=== PATIENT | male | born 1970 | race African-American/Black ===

== ENCOUNTER 2020-03-29 09:26 | Inpatient (IN) ==
[2020-03-29] MEDS ORDERED: ACETAMINOPHEN 1000 MG/100 ML IV IV STA (10:37)
[2020-03-29] MEDS ORDERED: DEXAMETHASONE SOD INJ 4 MG/ML VIAL IV STA (10:37)
[2020-03-29] MEDS ORDERED: SODIUM CHLORIDE 0.9% 1000ML 1,000 ML IV SCH (10:45)
--- NOTE | 2020-03-29 10:48 | Emergency Department Note ---
History of Present Illness General Chief Complaint: Shortness of Breath/Dyspnea Time Seen by Provider: 03/29/20 10:16 Source: patient Mode of arrival: ambulatory Limitations: no limitations History of Present Illness Provider Complaint: shortness of breath, cough and chest pain Onset (ago): day(s) (6) Severity: severe Consistency/Duration: + progressively worsening Maximum Pain Intensity: 5 Current Pain Intensity: 5 Relieved By: + rest and + upright position Exacerbated By: + lying flat, + exertion, + movement, + coughing and + talking Known history of: other (HTN) Treatment prior to arrival: oxygen HPI Narrative: This 49-year-old male patient presents to the emergency departm ent today [facility]. The patient states he has had diarrhea, high blood pressure, and fever for at least 5 days. He has been trying to manage his symptoms at present alone, but states everybody on the block is sick and no one is quarantined. He developed worsening cough, short ness of breath, fever, occasionally coughing up sputum last night, and was seen at the [facility] today. At the [facility], his O2 saturation was noted to be 75% on room air. He was then referred here via ambulance for further evaluation. The patient does report some chest pain associated with the dyspnea. He denies any abdominal pain, nausea, vomiting. No headache, dizziness, numbness, or ting ling. There are known COVID-19 exposures. Related Data Home oxygen amount: none Home Medications Medication Instructions Recorded Confirmed Type terbinafine HCl 1 % topical cream 1 appln TOP BID 01/08/19 03/29/20 History Allergies Allergy/AdvReac Type Severity Reaction Status Date / Time Penicillins Allergy Verified 03/29/20 10:31 strawberry Allergy Verified 03/29/20 10:31 Past Med/Surg History Medical History Hypertension Knee pain Umbilical hernia Social History Smoking Status: Never smoker Feels Safe at Home: Yes Review of Systems A total of 10 systems reviewed and were otherwise negative Physical Exam Vital Signs: Vital Signs - 24 hr 03/29/20 09:38 03/29/20 09:45 03/29/20 10:00 Temperature Temperature Source Pulse Rate 116 H 116 H 110 H Pulse Rate [Apical ] Pulse Rate from Sp O2 Sensor 115 H 116 H 115 H Respiratory Rate 56 H 37 H 56 H Respiratory Effort / Characteristics Respiratory Depth Respiratory Patter n Blood Pressure 139/88 Blood Pressure [Le ft Arm] Blood Pressure Alyson n 101 Blood Pressure Alyson n [Left Arm] Pulse Oximetry 92 93 92 Oxygen Delivery Me thod Oxygen Flow Rate Sepsis Recent Feve r Within 48 Hours Sepsis New/Unexpla ined Change in Men russ Status Sepsis Action Take n by Nursing 03/29/20 10:06 03/29/20 10:15 03/29/20 10:30 Temperature 38.6 C H Temperature Source Oral Pulse Rate 111 H 116 H 113 H Pulse Rate [Apical ] Pulse Rate from Sp O2 Sensor 111 H 114 H Respiratory Rate 54 H 40 H Respiratory Effort / Characteristics Labored Retracting Short of Breath Respiratory Depth Retractive Respiratory Patter n Tachypnea Blood Pressure 151/94 H 139/82 139/82 Blood Pressure [Le ft Arm] Blood Pressure Alyson n 100 101 92 Blood Pressure Alyson n [Left Arm] Pulse Oximetry 92 93 92 Oxygen Delivery Me thod Nasal Cannula Oxygen Flow Rate 6 Sepsis Recent Feve r Within 48 Hours Yes Sepsis New/Unexpla ined Change in Men russ Status N/A Sepsis Action Take n by Nursing Adv Provider Notif ied 03/29/20 10:40 03/29/20 10:50 03/29/20 11:00 Temperature Temperature Source Pulse Rate 113 H 111 H 109 H Pulse Rate [Apical ] Pulse Rate from Sp O2 Sensor 113 H 111 H 109 H Respiratory Rate 14 Respiratory Effort / Characteristics Respiratory Depth Respiratory Patter n Blood Pressure Blood Pressure [Le ft Arm] Blood Pressure Alyson n Blood Pressure Alyson n [Left Arm] Pulse Oximetry 91 91 92 Oxygen Delivery Me thod Oxygen Flow Rate Sepsis Recent Feve r Within 48 Hours Sepsis New/Unexpla ined Change in Men russ Status Sepsis Action Take n by Nursing 03/29/20 11:10 03/29/20 11:20 03/29/20 12:00 Temperature Temperature Source Pulse Rate 110 H 111 H Pulse Rate [Apical ] 106 H Pulse Rate from Sp O2 Sensor 111 H 111 H Respiratory Rate 24 24 Respiratory Effort / Characteristics Respiratory Depth Respiratory Patter n Blood Pressure Blood Pressure [Le ft Arm] 137/70 Blood Pressure Alyson n Blood Pressure Alyson n [Left Arm] 92 Pulse Oximetry 91 91 92 Oxygen Delivery Me thod Nasal Cannula Oxygen Flow Rate 6 Sepsis Recent Feve r Within 48 Hours Sepsis New/Unexpla ined Change in Men russ Status Sepsis Action Take n by Nursing 03/29/20 14:00 Temperature Temperature Source Pulse Rate Pulse Rate [Apical ] 94 H Pulse Rate from Sp O2 Sensor Respiratory Rate 24 Respiratory Effort / Characteristics Respiratory Depth Respiratory Patter n Blood Pressure Blood Pressure [Le ft Arm] 130/76 Blood Pressure Alyson n Blood Pressure Alyson n [Left Arm] 94 Pulse Oximetry 93 Oxygen Delivery Me thod Nasal Cannula Oxygen Flow Rate 6 Sepsis Recent Feve r Within 48 Hours Sepsis New/Unexpla ined Change in Men russ Status Sepsis Action Take n by Nursing Physical Exam: VITALS: Vitals are noted on the nurse's note and reviewed by myself. Patient is tachypneic, tachycardic, and febrile. He is hypoxic with an O2 saturation of 85% on room air. Blood pressure 130/76. GENERAL: This is a 49-year-old black male, tachypneic, accessory muscle use, fatigued from labored breathing, nondiaphoretic, well-developed well-nourished. SKIN: The skin was without rashes, erythema, edema, or bruising. There is no tenting of the skin. Capillary refill less than 2 seconds. HEAD: Normocephalic atraumatic. EYES: Conjunctivae without injection, sclerae without icterus. NECK: Supple without nuchal rigidity. No lymphadenopathy. LUNGS: +Retractions, +Accessory muscle use. MUSCULOSKELETAL: No muscle atrophy, erythema, or edema noted. Full range of motion without joint tenderness in all extremities. No tenderness to palpation. Normal gait. Strength 5/5 throughout. NEURO: Patient was alert and oriented to person place and time. No focal neurological deficits. Course Course The patient was seen and evaluated as above. An order was placed for continuous cardiac monitoring. The monitor shows a sinus tachycardia at a rate of 117 bpm. IV access obtained, labs drawn. Patient medicated with IV fluids, acetaminophen, Decadron Imaging performed and reviewed by myself and radiologist as noted. Labs reviewed by myself. I discussed the case with the [facility] hospitalist. They did agree to see and evaluate the patient for admission. Administered Medications Discontinued Medications Acetaminophen (Acetaminophen 1000 Mg/100 Ml Iv) 1,000 mg IV NOW STA Stop: 03/29/20 10:38 Last Admin: 03/29/20 11:22 Dose: 1,000 mg Documented by: [id number] Dexamethasone (Dexamethasone Sod Inj 4 Mg/Ml Vial) 6 mg IV NOW STA Stop: 03/29/20 10:38 Last Admin: 03/29/20 11:22 Dose: 6 mg Documented by: [id number] Sodium Chloride (Nss 1000ml) 1,000 mls @ 999 mls/hr IV .Q1H1M [id number] Stop: 03/29/20 11:45 Last Infusion: 03/29/20 12:30 Dose: 0 mls/hr Documented by: [id number] Admin: 03/29/20 11:22 Dose: 999 mls/hr Documented by: [id number] Medical Decision Making Differential Diagnosis + acute exacerbation of chronic obstructive airways disease, + congestive heart failure, + community acquired pneumonia, + asthma with exacerbation, + pulmonary embolism, + COPD, + bronchitis, + pneumothorax, + pneumonia, + pleural effusion, + CHF, + ACS and + aspiration Medical Records Attestation: I reviewed the patient's medical records. Home Medications Current Medication List: was personally reviewed by me Laboratory Data Attestation: I reviewed the patient's lab results. Leukocytosis of 12,000. No anemia or thrombocytopenia. INR mildly elevated 1.2. D-dimer elevated at 1040. Creatinine elevated 1.68. Troponin negative. Transaminases elevated. No significant electrolyte abnormalities. Lactic acid 1.6. COVID-19 testing positive. Result diagrams: 03/29/20 10:10 03/29/20 10:10 Lab Results 03/29/20 03/29/20 03/29/20 Range/Units 10:10 10:10 10:10 WBC 12.45 H (4.8-10.8) K/uL RBC 5.04 (4.7-6.1) M/uL Hgb 14.9 (14.0-18.0) g/dL Hct 43.9 (42-52) % MCV 87.1 (80-100) fL MCH 29.6 (25-34) pg MCHC 33.9 (32-36) g/dL RDW Std Deviation 44.0 (36.4-46.3) fL RDW Coeff of Harmony 13.8 (11.5-14.5) % Plt Count 255 (130-400) K/uL MPV 9.3 (7.4-10.4) fL Immature Gran % (Auto) 0.8 % Neut % (Auto) 90.3 % Lymph % (Auto) 6.4 % Wolfe % (Auto) 2.4 % Eos % (Auto) 0.0 % Baso % (Auto) 0.1 % Neut # (Auto) 11.24 H (1.4-6.5) K/uL Lymph # (Auto) 0.80 L (1.2-3.4) K/uL Wolfe # (Auto) 0.30 (0.11-0.59) K/uL Eos # (Auto) 0.00 (0-0.5) K/uL Baso # (Auto) 0.01 (0-0.2) K/uL Immature Gran # (Auto) 0.10 H (0.00-0.02) K/uL PT 12.2 H (9.0-12.0) Seconds INR 1.2 H (0.9-1.1) APTT 29.2 (21.0-31.0) Seconds PTT Ratio 1.0 D-Dimer 1040 H* (0-500) ug/L FEU Sodium 133 L (136-145) mmol/L Potassium 3.7 (3.5-5.1) mmol/L Chloride 97 L (98-107) mmol/L Carbon Dioxide 24 (21-32) mmol/L Anion Gap 13.0 H (3-11) BUN 29 H (7-18) mg/dl Creatinine 1.68 H (0.6-1.4) mg/dl Est Cr Clr Drug Dosing 82.5 ml/min Est GFR ( Amer) 55.2 Est GFR (Non-Af Amer) 47.7 BUN/Creatinine Ratio 17.0 (10-20) Glucose 118 H (70-99) mg/dl Lactate (0.4-2.0) mmol/L Calcium 8.8 (8.5-10.1) mg/dl Magnesium 2.4 (1.8-2.4) mg/dl Total Bilirubin 0.8 (0.2-1) mg/dl AST 104 H (15-37) U/L ALT 89 H (12-78) U/L Alkaline Phosphatase 66 (45-117) U/L Troponin I < 0.015 (0-0.045) ng/ml Total Protein 8.7 H (6.4-8.2) gm/dl Albumin 3.1 L (3.4-5.0) gm/dl Globulin 5.6 H (2.5-4.0) gm/dl Albumin/Globulin Ratio 0.6 L (0.9-2) COVID-19 Eval Order COVID-19 PCR (Negative) Influenza Type A (PCR) (Neg) Influenza Type B (PCR) (Neg) RSV (RT-PCR) (Neg) Blood Type Antibody Screen 03/29/20 03/29/20 03/29/20 Range/Units 10:10 10:10 11:30 WBC (4.8-10.8) K/uL RBC (4.7-6.1) M/uL Hgb (14.0-18.0) g/dL Hct (42-52) % MCV (80-100) fL MCH (25-34) pg MCHC (32-36) g/dL RDW Std Deviation (36.4-46.3) fL RDW Coeff of Harmony (11.5-14.5) % Plt Count (130-400) K/uL MPV (7.4-10.4) fL Immature Gran % (Auto) % Neut % (Auto) % Lymph % (Auto) % Wolfe % (Auto) % Eos % (Auto) % Baso % (Auto) % Neut # (Auto) (1.4-6.5) K/uL Lymph # (Auto) (1.2-3.4) K/uL Wolfe # (Auto) (0.11-0.59) K/uL Eos # (Auto) (0-0.5) K/uL Baso # (Auto) (0-0.2) K/uL Immature Gran # (Auto) (0.00-0.02) K/uL PT (9.0-12.0) Seconds INR (0.9-1.1) APTT (21.0-31.0) Seconds PTT Ratio D-Dimer (0-500) ug/L FEU Sodium (136-145) mmol/L Potassium (3.5-5.1) mmol/L Chloride (98-107) mmol/L Carbon Dioxide (21-32) mmol/L Anion Gap (3-11) BUN (7-18) mg/dl Creatinine (0.6-1.4) mg/dl Est Cr Clr Drug Dosing ml/min Est GFR ( Amer) Est GFR (Non-Af Amer) BUN/Creatinine Ratio (10-20) Glucose (70-99) mg/dl Lactate (0.4-2.0) mmol/L Calcium (8.5-10.1) mg/dl Magnesium (1.8-2.4) mg/dl Total Bilirubin (0.2-1) mg/dl AST (15-37) U/L ALT (12-78) U/L Alkaline Phosphatase (45-117) U/L Troponin I (0-0.045) ng/ml Total Protein (6.4-8.2) gm/dl Albumin (3.4-5.0) gm/dl Globulin (2.5-4.0) gm/dl Albumin/Globulin Ratio (0.9-2) COVID-19 Eval Order CovFluRsv at [facility] COVID-19 PCR POSITIVE A* (Negative) Influenza Type A (PCR) Negative (Neg) Influenza Type B (PCR) Negative (Neg) RSV (RT-PCR) Negative (Neg) Blood Type A Positive Antibody Screen NEGATIVE 03/29/20 Range/Units 11:32 WBC (4.8-10.8) K/uL RBC (4.7-6.1) M/uL Hgb (14.0-18.0) g/dL Hct (42-52) % MCV (80-100) fL MCH (25-34) pg MCHC (32-36) g/dL RDW Std Deviation (36.4-46.3) fL RDW Coeff of Harmony (11.5-14.5) % Plt Count (130-400) K/uL MPV (7.4-10.4) fL Immature Gran % (Auto) % Neut % (Auto) % Lymph % (Auto) % Wolfe % (Auto) % Eos % (Auto) % Baso % (Auto) % Neut # (Auto) (1.4-6.5) K/uL Lymph # (Auto) (1.2-3.4) K/uL Wolfe # (Auto) (0.11-0.59) K/uL Eos # (Auto) (0-0.5) K/uL Baso # (Auto) (0-0.2) K/uL Immature Gran # (Auto) (0.00-0.02) K/uL PT (9.0-12.0) Seconds INR (0.9-1.1) APTT (21.0-31.0) Seconds PTT Ratio D-Dimer (0-500) ug/L FEU Sodium (136-145) mmol/L Potassium (3.5-5.1) mmol/L Chloride (98-107) mmol/L Carbon Dioxide (21-32) mmol/L Anion Gap (3-11) BUN (7-18) mg/dl Creatinine (0.6-1.4) mg/dl Est Cr Clr Drug Dosing ml/min Est GFR ( Amer) Est GFR (Non-Af Amer) BUN/Creatinine Ratio (10-20) Glucose (70-99) mg/dl Lactate 1.6 (0.4-2.0) mmol/L Calcium (8.5-10.1) mg/dl Magnesium (1.8-2.4) mg/dl Total Bilirubin (0.2-1) mg/dl AST (15-37) U/L ALT (12-78) U/L Alkaline Phosphatase (45-117) U/L Troponin I (0-0.045) ng/ml Total Protein (6.4-8.2) gm/dl Albumin (3.4-5.0) gm/dl Globulin (2.5-4.0) gm/dl Albumin/Globulin Ratio (0.9-2) COVID-19 Eval Order COVID-19 PCR (Negative) Influenza Type A (PCR) (Neg) Influenza Type B (PCR) (Neg) RSV (RT-PCR) (Neg) Blood Type Antibody Screen Imaging Data Radiologist's Impression: XR chest 1V portable CLINICAL HISTORY: Dyspnea COMPARISON STUDY: No previous studies for comparison. FINDINGS: Lung volumes are mildly diminished. There is no pneumothorax or pleural effusion. Moderate multifocal airspace opacities are noted. Cardiomegaly is noted. IMPRESSION: 1. Moderate bilateral airspace opacities suggestive of multifocal pneumonia. Radiographic follow-up is recommended. 2. Cardiomegaly. ACT 112: Negative or not required by law. Electronically signed by: Edwar Cornelius M.D. 03/29/2020 12:39 PM Blood Pressure Blood Pressure Findings: Normal blood pressure MDM Narrative This 49-year-old male patient presents to the emergency department today for evaluation of acute shortness of breath, diarrhea, hypertension, and fever. Symptoms have been ongoing for the better part of the past week. He is an inmate at a local [facility] with current COVID-19 outbreak. Patient is dyspneic and tachypneic. He is tachycardic and hypoxic on room air. He is febrile. Work-up here in the ED consistent with COVID-19. Chest x-ray with bilateral multifocal pneumonia. Given the hypoxia and oxygen requirement, the patient will be admitted to the hospitalist service for ongoing management. He was given acetaminophen, Decadron, and IV fluids while here in the department. He will be admitted to the [facility] hospitalist service. Please see their dictation regarding ongoing management care of this patient. The chart was completed utilizing [employer] Speech voice recognition software. Grammatical errors, random word insertions, pronoun errors, and incomplete sentences are an occasional consequence of this system due to software limitations, ambient noise, and hardware issues. Any formal questions or concerns about the content, text, or information contained within the body of this dictation should be directly addressed to the provider for clarification. Impression & Plan Hypoxia, Pneumonia due to 2019-nCoV Discharge Plan Visit Data Chief Complaint: Shortness of Breath/Dyspnea ED Provider: Yissel Mckinney ED Midlevel Provider: Niurka Jones Discharge Problem: Hypoxia, Pneumonia due to 2019-nCoV Patient Disposition: Admitted As Inpatient Forms Stand Alone Forms: My [facility] [employer] Prescriptions Prescriptions: No Action terbinafine HCl [Antifungal (terbinafine)] 1 % cream 1 appln TOP BID RF: 0 Referrals Referrals: Henrique HOLDER [Primary Care Provider] -
[2020-03-29 11:00] LABS: Basophils # (auto) 0.01 K/uL (0-0.2); Basophils % (auto) 0.1 %; Hematocrit (blood only) 43.9 % (42-52); Hemoglobin 14.9 g/dL (14.0-18.0); Immature Granulocytes % (auto) 0.8 %; Lymphocytes % (auto) 6.4 %; Mean Corpuscular Hemoglobin 29.6 pg (25-34); Mean Corpuscular Hgb Conc 33.9 g/dL (32-36); Mean Corpuscular Volume 87.1 fL (80-100); Mean Platelet Volume 9.3 fL (7.4-10.4); Monocytes % (auto) 2.4 %; Neutrophils # (auto) 11.24 K/uL (1.4-6.5); Neutrophils % (auto) 90.3 %; Platelet Count 255 K/uL (130-400); RDW Coefficient of Variation 13.8 % (11.5-14.5); Red Blood Count 5.04 M/uL (4.7-6.1); White Blood Count 12.45 K/uL (4.8-10.8)
[2020-03-29 11:16] LABS: Alanine Aminotransferase 89 U/L (12-78); Albumin Level 3.1 gm/dl (3.4-5.0); Aspartate Aminotransferase 104 U/L (15-37); Blood Urea Nitrogen 29 mg/dl (7-18); Calcium 8.8 mg/dl (8.5-10.1); Carbon Dioxide 24 mmol/L (21-32); Chloride 97 mmol/L (98-107); Creatinine Clr Calc Pharmacy 82.5 ml/min; Est GFR (African American) 55.2; Est GFR (Non-African American) 47.7; Glucose 118 mg/dl (70-99); Magnesium 2.4 mg/dl (1.8-2.4); Potassium 3.7 mmol/L (3.5-5.1); Sodium 133 mmol/L (136-145)
[2020-03-29 11:21] LABS: Albumin Globulin Ratio 0.6 (0.9-2); Alkaline Phosphatase 66 U/L (45-117); Bilirubin,Total 0.8 mg/dl (0.2-1); Globulin 5.6 gm/dl (2.5-4.0); Total Protein 8.7 gm/dl (6.4-8.2); Troponin I < 0.015 ng/ml (0-0.045)
[2020-03-29 11:34] LABS: INR 1.2 (0.9-1.1); Partial Thromboplastin Time 29.2 Seconds (21.0-31.0); Prothrombin Time 12.2 Seconds (9.0-12.0)
[2020-03-29 11:40] LABS: D Dimer 1040 ug/L FEU (0-500)
[2020-03-29 12:29] LABS: Influenza A virus by PCR Negative (Neg); Influenza B virus by PCR Negative (Neg); RSV by PCR Negative (Neg)
--- NOTE | 2020-03-29 12:40 | XRay Report ---
XR chest 1V portable CLINICAL HISTORY: Dyspnea COMPARISON STUDY: No previous studies for comparison. FINDINGS: Lung volumes are mildly diminished. There is no pneumothorax or pleural effusion. Moderate multifocal airspace opacities are noted. Cardiomegaly is noted. IMPRESSION: 1. Moderate bilateral airspace opacities suggestive of multifocal pneumonia. Radiographic follow-up i s recommended. 2. Cardiomegaly. ACT 112: Negative or not required by law. Electronically signed by: Edwar Cornelius M.D. 03/29/2020 12:39 PM
[2020-03-29 12:41] LABS: SARS CoV2 RNA(COVID-19) InHosp POSITIVE (Negative)
[2020-03-29] MEDS ORDERED: ACETAMINOPHEN 325 MG TAB PO PRN (16:18)
[2020-03-29] MEDS ORDERED: AZITHROMYCIN 250 MG TAB PO ONE ×2 (16:18→18:30)
[2020-03-29] MEDS ORDERED: ONDANSETRON INJ 2 MG/ML 2 ML VIAL IV PRN (16:18)
[2020-03-29] MEDS ORDERED: ALBUT/IPRATROP 3MG/0.5MG NEB 3 ML VIAL NEB PRN (16:18)
--- NOTE | 2020-03-29 18:05 | History & Physical Report ---
Date of Service March 29, 2020 Assessment & Plan (1) Pneumonia due to 2019-nCoV: Tested positive in the ED; symptoms x about 1 week at [facility]. - Dexamethasone 6 mg PO daily x 10 days - Remdesivir not shown to help in [facility] trial - Convalescent plasma of limited benefit in [place] trial, plus patient is 1 week from symptom onset. - Supplemental O2 PRN - DuoNebs PRN - Will treat with CAP abx given elevated WBC - Consider CTA chest tomorrow if Cr improved (2) CARSON (acute kidney injury): No know prior renal issues. - Cr was 1.7 on admission; likely due to pre-renal as he has not eaten or drank much in the last week. - IV fluids - Follow Cr (3) Hypertension: Reports hx of HTN, but on no meds for this. - Monitor (4) DVT prophylaxis: Heparin 7,500 units SQ Q12h Admission and Anticipated Discharge Date Admission Date: March 29, 2020 History of Present Illness Primary Care Provider: COLE Godoyner 49yo M w/ hx of HTN who presents with Covid. The patient reports he has had symptoms about 1 week. He has felt increasing shortness of breath, cough, fevers/chills, and diarrhea. He was not tested at [facility], but was sent in for hypoxemia. Allergies Allergy/AdvReac Type Severity Reaction Status Date / Time Penicillins Allergy Verified 03/29/20 10:31 strawberry Allergy Verified 03/29/20 10:31 Home Medications Medication Instructions Recorded Confirmed Type terbinafine HCl 1 % topical cream 1 appln TOP BID 01/08/19 03/29/20 History Past Med/Surg History Medical History (Updated 03/29/20 @ 18:18 by Deep Deluca MD) Hypertension Knee pain Umbilical hernia Surgical History (Updated 03/29/20 @ 18:15 by Deep Deluca MD) H/O hernia repair 06/2019 - [facility] Moore Family History (Updated 03/29/20 @ 18:15 by Deep Deluca MD) Other Hypertension Social History Smoking Status: Never smoker Hx Substance Use: No Preferred Language: Bulgarian Communication Ability: Effective Pet Care Assistant Required: No Beliefs That Will Affect Care: None Current Living Situation: Other Current Living Situation Comment: [facility] Other Information That Helps Us Care for You: No Feels Safe at Home: Yes Assistive Devices: Oxygen - Continuous Review of Systems Review of Systems: All systems reviewed & are unremarkable except as noted in HPI & below Physical Exam Constitutional: WD/WN, vitals as above Eyes: EOM intact bilaterally; no conjunctival abnormality ENMT: external ear and nose normal, oropharynx normal Neck: trachea midline, no thyromegaly normal visual inspection Respiratory: + labored breathing and + tachypneic; no respiratory distress Auscultation: + diminished lung sounds and + crackles; no wheezes Cardiovascular: RRR, no murmur, no edema Gastrointestinal (Abdomen): Inspection/Auscultation: abdomen normal to inspection; abdomen not distended Musculoskeletal: no cyanosis or clubbing, extremities motor strength 5/5 Skin: no rashes, warm and dry Neurologic: moves all extremities and awake Psychiatric: Orientation: alert, oriented to person and cooperative Results & Data Results & Data ([facility]) Vital Signs (Past 12 Hours) Vital Signs Temp Pulse Pulse Pulse Resp BP BP 03/29/20 16:25 36.6 C 87 24 158/78 H 03/29/20 16:19 36.6 C 87 24 158/78 H 03/29/20 14:00 94 H 24 130/76 03/29/20 12:00 106 H 24 137/70 03/29/20 11:20 111 H 03/29/20 11:10 110 H 24 03/29/20 11:00 109 H 14 03/29/20 10:50 111 H 03/29/20 10:40 113 H 03/29/20 10:30 113 H 139/82 03/29/20 10:15 38.6 C H 116 H 40 H 139/82 03/29/20 10:06 111 H 54 H 151/94 H 03/29/20 10:00 110 H 56 H 03/29/20 09:45 116 H 37 H 03/29/20 09:38 116 H 56 H 139/88 Pulse Ox 03/29/20 16:25 93 03/29/20 16:19 93 03/29/20 14:00 93 03/29/20 12:00 92 03/29/20 11:20 91 03/29/20 11:10 91 03/29/20 11:00 92 03/29/20 10:50 91 03/29/20 10:40 91 03/29/20 10:30 92 03/29/20 10:15 93 03/29/20 10:06 92 03/29/20 10:00 92 03/29/20 09:45 93 03/29/20 09:38 92 Code Status & VTE Plan VTE Prophylaxis Plan VTE Prophylaxis will be ordered: Yes PG Care Time/CCT Total # of Minutes Spent Total Time Spent with Patient: Total time spent is greater than 50% in coordination of care (as documented) at patient's floor/unit and/or counseling patient: Coding Level of Care Code 51447 Initial Inpt Care Lvl 3 Diagnoses Pneumonia due to 2019-nCoV U07.1; J12.89 CARSON (acute kidney injury) N17.9 Hypertension I10 DVT prophylaxis Z29.9
[2020-03-29] MEDS: cefTRIAXone SODIUM 2,000 MG in DEXTROSE 5% 50 ML IV SCH (19:08)
[2020-03-29] MEDS: NORMOSOL-R 1,000 ML IV SCH (19:09)
[2020-03-29] MEDS: HEPARIN SOD 5,000 UNIT/0.5 ML VIAL SQ SCH (19:46)
[2020-03-30] MEDS: NORMOSOL-R 1,000 ML IV SCH ×3 (01:13→17:09)
[2020-03-30 07:50] LABS: Hematocrit (blood only) 42.9 % (42-52); Hemoglobin 14.6 g/dL (14.0-18.0); Mean Corpuscular Hemoglobin 29.6 pg (25-34); Platelet Count 287 K/uL (130-400); RDW Coefficient of Variation 14.1 % (11.5-14.5); RDW Standard Deviation 45.1 fL (36.4-46.3); Red Blood Count 4.93 M/uL (4.7-6.1); White Blood Count 11.46 K/uL (4.8-10.8)
[2020-03-30 08:28] LABS: Albumin Level 2.8 gm/dl (3.4-5.0); BUN Creatinine Ratio 21.7 (10-20); Calcium 8.9 mg/dl (8.5-10.1); Est GFR (African American) 73.9; Est GFR (Non-African American) 63.8; Potassium 3.7 mmol/L (3.5-5.1)
[2020-03-30 08:31] LABS: Albumin Globulin Ratio 0.5 (0.9-2); Bilirubin,Total 0.6 mg/dl (0.2-1); Globulin 5.1 gm/dl (2.5-4.0); Total Protein 7.9 gm/dl (6.4-8.2)
[2020-03-30] MEDS: dexAMETHasone 4 MG TAB PO SCH (08:43)
[2020-03-30] MEDS: HEPARIN SOD 5,000 UNIT/0.5 ML VIAL SQ SCH ×2 (08:44→20:12)
--- NOTE | 2020-03-30 08:59 | Electrocardiogram Report ---
Test Reason : Blood Pressure : / mmHG Vent. Rate : 117 BPM Atrial Rate : 117 BPM P-R Int : 152 ms QRS Dur : 084 ms QT Int : 332 ms P-R-T Axes : 045 038 042 degrees QTc Int : 463 ms Sinus tachycardia Otherwise normal ECG No previous ECGs available Confirmed by Tuan Leo ([id number]) on 03/30/2020 8:59:33 AM Referred By: REFERRED SELF Confirmed By:Tuan Leo
[2020-03-30] MEDS: AZITHROMYCIN 250 MG TAB PO SCH (10:04)
[2020-03-30] MEDS ORDERED: OPTIRAY 320 125ml IV ONE (14:35)
--- NOTE | 2020-03-30 14:51 | CT Scan Report ---
CT ANGIOGRAM OF THE CHEST CLINICAL HISTORY: Hypoxia, shortness of breath. Possible pulmonary embolism. Covid positive patient COMPARISON STUDY: Chest x-ray dated 03/29/2020 TECHNIQUE: Following the IV administration of 119 mL of Optiray-320, CT angiogram of the thorax was p erformed from the thoracic inlet to the lung bases utilizing the pulmonary embolus protocol. Images a re reviewed in the axial, sagittal, and coronal planes. IV contrast was administered without complica tion. MIP imaging was performed. A dose lowering technique was utilized adhering to the principles o f ALARA. CT DOSE: 676.98 mGycm FINDINGS: There are mildly enlarged mediastinal lymph nodes, likely reactive. There was no evidence of thoracic aortic dilatation. Evaluation the pulmonary arteries is limited due to suboptimal pulmonary arterial opacification and a rtifact as the patient was unable to maintain his arms above his head. There are no central pulmonary emboli. Evaluation of peripheral pulmonary artery branches is limited. There is a trace right pleural effusion There are extensive multifocal pulmonary airspace opacities consistent with a multifocal pneumonia. IMPRESSION: 1. Technically limited evaluation of the pulmonary arteries. No central emboli identified. 2. Extensive bilateral pulmonary airspace opacities consistent with a multifocal pneumonia. 3. Mildly enlarged mediastinal lymph nodes likely reactive. 4. Trace right pleural effusion ACT 112: Negative or not required by law. Electronically signed by: Juan J Chaparro M.D. 03/30/2020 2:50 PM
--- NOTE | 2020-03-30 15:28 | Hospitalist Progress Note ---
Date of Service March 30, 2020 Assessment & Plan (1) Pneumonia due to 2019-nCoV: Tested positive in the ED; symptoms x about 1 week at [facility]. No PE on CTA on 03/30 (reviewed myself). - Dexamethasone 6 mg PO daily x 10 days - Remdesivir not shown to help in [facility] trial - Convalescent plasma of limited benefit in [facility] trial, plus patient is 1 week from symptom onset. - Supplemental O2 PRN - DuoNebs PRN - Will treat with CAP abx given elevated WBC and procalcitonin. MRSA swab n egative. Continue ceftriaxone & azithromycin. (2) CARSON (acute kidney injury): No know prior renal issues. - Cr was 1.7 on admission; likely due to pre-renal as he has not eaten or drank much in the last week. - IV fluids - Follow Cr -> Improved to 1.3 today. (3) Hypertension: Reports hx of HTN, but on no meds for this. BP today is 170/85. - Monitor (4) DVT prophylaxis: Heparin 7,500 units SQ Q12h Admission and Anticipated Discharge Date Admission Date: March 29, 2020 Subjective Feels significant shortness of breath if he is moving at all. Some loss of appetite. Reports no fevers/chills, chest pain, abdominal pain, nausea, or vomiting. Physical Exam Constitutional: WD/WN, vitals as above Eyes: EOM intact bilaterally; no conjunctival abnormality ENMT: external ear and nose normal, oropharynx normal Neck: trachea midline, no thyromegaly normal visual inspection Respiratory: + labored breathing and + tachypneic; no respiratory distress Auscultation: + diminished lung sounds and + crackles; no wheezes Cardiovascular: RRR, no murmur, no edema Gastrointestinal (Abdomen): Inspection/Auscultation: abdomen normal to inspection; abdomen not distended Musculoskeletal: no cyanosis or clubbing, extremities motor strength 5/5 Skin: no rashes, warm and dry Neurologic: moves all extremities and awake Psychiatric: Orientation: alert, oriented to person and cooperative Results & Data Results & Data ([facility]) Vital Signs (Past 12 Hours) Vital Signs Temp Pulse Resp BP Pulse Ox 03/30/20 14:48 36.7 C 88 24 168/84 H 87 L 03/30/20 10:05 91 03/30/20 08:41 37.1 C 69 154/83 H 91 PG Care Time/CCT Total # of Minutes Spent Total Time Spent with Patient: Total time spent is greater than 50% in coordination of care (as documented) at patient's floor/unit and/or counseling patient: Coding Level of Care Code 11375 Subseq Hosp Care Lvl 3 Diagnoses Pneumonia due to 2019-nCoV U07.1; J12.89 CARSON (acute kidney injury) N17.9 Hypertension I10 DVT prophylaxis Z29.9
[2020-03-30] MEDS: cefTRIAXone SODIUM 2,000 MG in DEXTROSE 5% 50 ML IV SCH (19:11)
[2020-03-30] MEDS ORDERED: MELATONIN 3 MG TAB PO SCH (21:00)
[2020-03-30] MEDS: MELATONIN 3 MG TAB PO SCH (21:56)
[2020-03-31 00:19] LABS: Base Excess ABG 2.1 mEq/L (-9-1.8); HCO3 ABG 27 mmol/L (19-24); PCO2 ABG 41 mmHg (35-46); PO2 ABG 56 mmHg (80-95); pH ABG 7.43 (7.35-7.45)
[2020-03-31 00:23] LABS: Allen Test Pos (Pos)
[2020-03-31] MEDS: NORMOSOL-R 1,000 ML IV SCH ×2 (00:40→09:27)
[2020-03-31] MEDS ORDERED: ALBUTEROL 0.5% NEB SOLN 2.5 MG/0.5 ML VIAL NEB PRN (01:29)
[2020-03-31] MEDS ORDERED: LORazepam 0.5 MG/1 ML VIAL IV PRN (05:16)
[2020-03-31 07:01] LABS: Hematocrit (blood only) 41.8 % (42-52); Hemoglobin 13.8 g/dL (14.0-18.0); Mean Corpuscular Hemoglobin 29.6 pg (25-34); Mean Corpuscular Volume 89.5 fL (80-100); Platelet Count 403 K/uL (130-400); RDW Coefficient of Variation 14.5 % (11.5-14.5); RDW Standard Deviation 47.5 fL (36.4-46.3); Red Blood Count 4.67 M/uL (4.7-6.1); White Blood Count 8.81 K/uL (4.8-10.8)
[2020-03-31 07:28] LABS: Calcium 8.6 mg/dl (8.5-10.1); Creatinine Clr Calc Pharmacy 123.8 ml/min; Est GFR (African American) 90.2; Est GFR (Non-African American) 77.8; Magnesium 3.6 mg/dl (1.8-2.4); Potassium 4.1 mmol/L (3.5-5.1)
--- NOTE | 2020-03-31 07:56 | XRay Report ---
XR chest 1V portable HISTORY: 49 years-old Male hypoxia acute shortness of breath with hypoxia COMPARISON: Chest radiograph 03/29/2020, CTA chest 03/30/2020 TECHNIQUE: Portable AP view of the chest FINDINGS: Cardiac silhouette is enlarged. No pneumothorax or large pleural effusion. Extensive bilateral airspa ce opacities with air bronchograms are redemonstrated which appear generally stable from the most rec ent comparison however have worsened from comparison chest radiograph. Bones of the chest appear mayte sly intact. IMPRESSION: Persistent extensive bilateral alveolar opacities with air bronchograms suggestive of mul tifocal pneumonia, mildly worsened from 03/29/2020. ACT 112: Negative or not required by law. The above report was generated using voice recognition software. It may contain grammatical, syntax o r spelling errors. Electronically signed by: Yannick Cochran M.D. 03/31/2020 7:55 AM
--- NOTE | 2020-03-31 08:34 | Critical Care Consultation ---
Date of Consultation March 31, 2020 Assessment & Plan (1) Acute respiratory distress syndrome (ARDS) due to 2019 novel coronavirus: Reason Critically Ill: 49-year-old male with acute respiratory distress syndrome secondary to COVID-19 pneumonia PLAN: Neuro: Sedation with Versed and fentanyl infusions Resp: Severe respiratory distress syndrome -Strongly advocated for intubation and mechanical ventilation -Patient refuses to consent at this time will favor an attempt noninvasive mechanical ventilation -Patient in high 80s desaturates to low 80s with conversation CV: Hypertension -Not currently on medication, while thiazide might be first choice in this patient we will proceed with amlodipine due to onset of thiazide diuretics is inadequate for ICU level care Fluids/Renal: Acute kidney injury: Resolved -Avoiding renal toxic medications at this time, unknown baseline ID: Patient is not on antibiotics -No growth in blood cultures to date -White count within normal limits, afebrile COVID-19 pneumonic process GI/Nutrition: N.p.o. if patient is intubated Obesity: BMI 38 Heme: DVT prophylaxis: Heparin 3 times daily secondary to acute kidney injury Endocrine: ICU hyperglycemia protocol Vascular access: Peripheral IVs Code Status: Full Disposition: We will reevaluate the patient he is to remain telemetry unless he is intubated moving forward. (2) Pneumonia due to 2019-nCoV: (3) Hypertension: (4) Hypoxia: (5) CARSON (acute kidney injury): (6) Acute respiratory failure with hypoxia: (7) Imprisonment and other incarceration: History of Present Illness Reason for Consultation: Severe hypoxic respiratory failure in the setting of COVID-19 Requesting Physician: Roberto Jackson DO Attending Physician: Mohit Jackson DO History of Present Illness Patient is a 49-year-old -[place]namese male with a significant past medical history for hypertension and acute kidney injury. He has had worsening hypoxia and by enlarge part not participated with self proning. When I saw the patient he was hypoxic in the mid 80s speaking in 2-3 word sentences having difficulty eating given the profound hypoxia. When we discussed need for intubation and proning he felt like he was not given many options to try and wanted to try additional therapies. We discussed his large meek preventing seal from forming with noninvasive positive pressure therapy, the patient is willing to undergo shaving to facilitate noninvasive positive pressure and we will reevaluate the patient to see if he improves with this therapy. Allergies Allergy/AdvReac Type Severity Reaction Status Date / Time Penicillins Allergy Verified 03/29/20 10:31 strawberry Allergy Verified 03/29/20 10:31 Home Medications Medication Instructions Recorded Confirmed Type terbinafine HCl 1 % topical cream 1 appln TOP BID 01/08/19 03/29/20 History Patient History Medical History Hypertension Knee pain Umbilical hernia Surgical History H/O hernia repair 06/2019 - Porfirioshayyamna Teresa Family History Other Hypertension Social History Smoking Status: Never smoker Hx Substance Use: No Preferred Language: Macedonian Communication Ability: Effective Communications Tower Technician Required: No Beliefs That Will Affect Care: None Current Living Situation: Other Current Living Situation Comment: [facility] Other Information That Helps Us Care for You: No Feels Safe at Home: Yes Assistive Devices: None Review of Systems Review of Systems: All systems reviewed & are unremarkable except as noted in HPI & below Feels scared, positive dyspnea, no chest pain, no abdominal pain Physical Exam Physical Exam: General: Alert. nontoxic. Skin: Warm, dry, Head: Atraumatic Ears, nose, mouth and throat: airway patent, widespread dental caries with missing teeth Cardiovascular: Normal peripheral perfusion Respiratory: Obvious tachypnea with short shallow breathing speaks in 2-3 word sentences Gastrointestinal: Non distended, rotund, no hepatosplenomegaly Musculoskeletal: No deformity Results & Data Results & Data ([facility]) Vital Signs (Past 12 Hours) Vital Signs Temp Pulse Pulse Resp BP Pulse Ox 03/31/20 07:36 74 32 H 96 03/31/20 07:20 77 24 185/86 H 97 03/31/20 05:00 65 40 H 94 03/30/20 23:32 36.5 C 82 40 H 182/91 H 89 L 03/30/20 22:32 36.4 C L 83 27 H 156/91 H 88 L Laboratory Results I reviewed his labs Diagnostic Findings I reviewed the chest x-ray for that day Coding Level of Care Code 25925 Inpt Consult Level 5 Diagnoses Acute respiratory distress syndrome (ARDS) due to 2019 novel coronavirus U07.1; J80 Pneumonia due to 2019-nCoV U07.1; J12.89 Hypertension I10 Hypertension type: essential hypertension Hypoxia R09.02 CARSON (acute kidney injury) N17.9 Acute respiratory failure with hypoxia J96.01 Imprisonment and other incarceration Z65.1 (1) Hypertension Hypertension type: essential hypertension Qualified Code(s): I10 - Essential (primary) hypertension
[2020-03-31] MEDS ORDERED: ETOMIDATE 2 MG/ML 20 ML VIAL IV ONE ×2 (08:35→18:54)
[2020-03-31] MEDS ORDERED: SUCCINYLCHOLINE CHLORIDE 20 MG/ML 10 ML VIAL IV STA (08:35)
[2020-03-31] MEDS ORDERED: STAT IV Infusion **Titration per Protocol STA ×2 (08:35→16:42)
[2020-03-31] MEDS ORDERED: PROPOFOL BOLUS FROM BAG IV PRN (08:35)
[2020-03-31] MEDS ORDERED: RAPID SEQUENCE INDUCTION BAG ONE (08:36)
--- NOTE | 2020-03-31 10:06 | Hospitalist Progress Note ---
Date of Service March 31, 2020 Assessment & Plan (1) Acute respiratory failure with hypoxia: labored breathing, using accessory muscles, profound hypoxia requiring BIPAP on BIPAP this morning 16/8 with 100% FiO2 but seal was poor due to his meek tried on HFNC 100% and 60L but saturations < 90% when talking shaved off meek, better seal with BIPAP ABG with PaO2 80 and PCO2 40 RR in 30's hold off on intubation for now, but if he deteriorates then intubation is next step (2) Pneumonia due to 2019-nCoV: Tested positive in the ED; symptoms x about 1 week at [facility]. No PE on CTA on 03/30 - Dexamethasone 6 mg PO daily x 10 days, day 2 - Remdesivir not shown to help in [facility] trial - Convalescent plasma of limited benefit in [facility] trial, plus patient is 1 week from symptom onset. - Will treat with CAP abx given elevated WBC and procalcitonin. MRSA swab negative. Continue ceftriaxone & azithromycin respiratory status deteriorating, severe COVID pneumonia at this point continue BIPAP as long as he tolerates but will likely need intubation (3) CARSON (acute kidney injury): No know prior renal issues. - Cr was 1.7 on admission; likely due to pre-renal as he has not eaten or drank much in the last week. - IV fluids - CR improved to 1.1 today, making urine (4) Hypertension: Reports hx of HTN, but on no meds for this. BP today is 155/87 certainly would expect BP to be elevated with the amount of stress he is under at this time - Monitor (5) DVT prophylaxis: change to Lovenox now that renal function improved Admission and Anticipated Discharge Date Admission Date: March 29, 2020 Subjective patient working really hard to breathe this morning, using abdominal muscles, RR in the 30-40 range desaturating with talking difficulty with seal on the BIPAP asked Dr. Renner to evaluate patient for intubation and change to critical care status myself, Dr. Renner, respiratory therapy and RN discussed with patient at the bedside about poor prognosis due to how hard he is working to breath he wants to try BIPAP again after we shave off his meek we will re-assess him at 2pm to see how he is doing, discuss intubation again revisited in the afternoon, patient tolerating BIPAP at 100% FiO2 still very tachypneic, ABG with CO2 40, PaO2 80, pH 7.46 wants to hold off on intubation Review of Systems Review of Systems: All systems reviewed & are unremarkable except as noted in Subjective Constitutional: no fever, no chills, no sweats, no fatigue and no weakness Respiratory: + cough and + dyspnea (severe); no sputum production and no wheezing Cardiovascular: no chest pain, no palpitations and no edema Gastrointestinal: no abdominal pain, no nausea, no vomiting and no diarrhea/loose stools Physical Exam Constitutional: well developed, + acute distress, + ill appearing, + obese and + diaphoretic Neck: trachea midline and + thick neck; + abnormal visual inspection (scar from prior tracheostomy) Respiratory: + respiratory distress, + labored breathing, + uses accessory muscles (belly breathing) and + tachypneic Auscultation: no crackles, no rales, no rhonchi and no wheezes Cardiovascular: RRR, no murmur, no edema Gastrointestinal (Abdomen): normal bowel sounds, soft, nontender, no hepatosplenomegaly Musculoskeletal: no cyanosis or clubbing, extremities motor strength 5/5 Skin: no rashes, warm and dry Neurologic: patellar DTR's 2+ bilat, sensation intact and PERRL, EOMI, accommodation nl, no face palsy, no dysarthria Psychiatric: A+Ox3, euthymic affect Lymphatic: no cervical or axillary lymphadenopathy Results & Data Results & Data ([facility]) Vital Signs (Past 12 Hours) Vital Signs Temp Pulse Pulse Resp BP Pulse Ox 03/31/20 09:42 80 45 H 97 03/31/20 09:16 86 32 H 94 03/31/20 07:36 74 32 H 96 03/31/20 07:20 77 24 185/86 H 97 03/31/20 05:00 65 40 H 94 03/30/20 23:32 36.5 C 82 40 H 182/91 H 89 L 03/30/20 22:32 36.4 C L 83 27 H 156/91 H 88 L Laboratory Results Laboratory Results - last 24 hr 03/30/20 03/30/20 03/31/20 07:28 21:59 00:00 WBC RBC Hgb Hct MCV MCH MCHC RDW Std Deviation RDW Coeff of Harmony Plt Count MPV ABG pH Cancelled 7.43 ABG pCO2 Cancelled 41 ABG pO2 Cancelled 56 L ABG HCO3 Cancelled 27 H ABG O2 Saturation Cancelled 87.0 L ABG Base Excess Cancelled 2.1 H Yordan Test Cancelled Pos Barometric Pressure Cancelled 730.0 Oxygen Given Cancelled 15L Sodium Potassium Chloride Carbon Dioxide Anion Gap BUN Creatinine Est Cr Clr Drug Dosing Est GFR ( Amer) Est GFR (Non-Af Amer) BUN/Creatinine Ratio Glucose Calcium Magnesium Total Creatine Kinase 881 H 03/31/20 03/31/20 06:37 06:37 WBC 8.81 RBC 4.67 L Hgb 13.8 L Hct 41.8 L MCV 89.5 MCH 29.6 MCHC 33.0 RDW Std Deviation 47.5 H RDW Coeff of Harmony 14.5 Plt Count 403 H MPV 9.0 ABG pH ABG pCO2 ABG pO2 ABG HCO3 ABG O2 Saturation ABG Base Excess Yordan Test Barometric Pressure Oxygen Given Sodium 137 Potassium 4.1 Chloride 104 Carbon Dioxide 30 Anion Gap 3.0 BUN 25 H Creatinine 1.12 Est Cr Clr Drug Dosing 123.8 Est GFR ( Amer) 90.2 Est GFR (Non-Af Amer) 77.8 BUN/Creatinine Ratio 22.0 H Glucose 144 H Calcium 8.6 Magnesium 3.6 H Total Creatine Kinase Medications Administered Current Inpatient Medications Acetaminophen (Acetaminophen 325 Mg Tab) 650 mg PO Q4H PRN PRN Reason: pain/fever Stop: 04/28/20 16:17 Albuterol (Albut/Ipratrop 3mg/0.5mg Neb 3 Ml Vial) 3 ml NEB QIDR PRN PRN Reason: Shortness Of Breath Or Wheezing Stop: 04/28/20 16:17 Last Admin: 03/30/20 20:01 Dose: 3 ml Documented by: Albuterol (Albuterol 0.5% Neb Soln 2.5 Mg/0.5 Ml Vial) 2.5 mg NEB Q6R PRN PRN Reason: short of breath Stop: 04/30/20 06:59 Fentanyl Citrate (Fentanyl Bolus From Bag) 50 mcg IV Q60M PRN PRN Reason: Pain or Agitation Stop: 04/14/20 08:34 Heparin Sodium (Porcine) (Heparin Sod 5,000 Unit/0.5 Ml Vial) 7,500 units SQ Q12H [facility] Stop: 04/28/20 20:59 Last Admin: 03/30/20 20:12 Dose: 7,500 units Documented by: Ceftriaxone Sodium 2,000 mg/ (Dextrose) 70 mls @ 100 mls/hr IV Q24H [facility]; Protocol Stop: 04/05/20 18:59 Last Infusion: 03/30/20 20:27 Dose: Infused Documented by: Lorazepam (Ativan) 0.5 mg in 1 mls @ 1 mls/min IV Q4H PRN PRN Reason: Agitation Stop: 04/30/20 05:15 Last Admin: 03/31/20 05:30 Dose: 1 mls/min Documented by: Propofol (Diprivan) 1,000 mg in 100 mls @ 17.4 mls/hr IV .Q5H45M [facility]; Protocol Stop: 04/03/20 08:44 Fentanyl Citrate (Fentanyl Drip) 1,250 mcg in 250 mls @ 5 mls/hr IV .Q50H [facility]; Protocol Stop: 04/14/20 08:44 Melatonin (Melatonin 3 Mg Tab) 6 mg PO HS [facility] Stop: 04/29/20 20:59 Last Admin: 03/30/20 21:56 Dose: 6 mg Documented by: Ondansetron HCl (Ondansetron Inj 2 Mg/Ml 2 Ml Vial) 4 mg IV Q6H PRN PRN Reason: Nausea Stop: 04/28/20 16:17 Propofol (Propofol Bolus From Bag) 20 mg IV Q5M PRN PRN Reason: Sedation Stop: 04/03/20 08:34 PG Care Time/CCT Total # of Minutes Spent Total Time Spent: 40 Total Time Spent with Patient: Total time spent is greater than 50% in coordination of care (as documented) at patient's floor/unit and/or counseling patient: Critical Care Time: Yes Total Critical Care Time: 40 Coding Level of Care Code 02679 Subseq Hosp Care Lvl 3 Diagnoses Acute respiratory failure with hypoxia J96.01 Pneumonia due to 2019-nCoV U07.1; J12.89 CARSON (acute kidney injury) N17.9 Hypertension I10 DVT prophylaxis Z29.9 Additional Codes Critical Care Time - Critical Care Time: Yes ([id number])
[2020-03-31] MEDS: dexAMETHasone 6 MG in SYRINGE 0 ML IV SCH (10:57)
[2020-03-31] MEDS: AZITHROMYCIN 500 MG in DEXTROSE 5% 250 ML IV SCH (10:57)
[2020-03-31] MEDS: HEPARIN SOD 5,000 UNIT/0.5 ML VIAL SQ SCH ×2 (10:59→20:39)
[2020-03-31] MEDS: propofoL 1,000 MG/100 ML VIAL IV SCH ×2 (11:08→18:52)
[2020-03-31] MEDS: dexAMETHasone 4 MG TAB PO SCH (11:09)
[2020-03-31] MEDS: AZITHROMYCIN 250 MG TAB PO SCH (11:09)
[2020-03-31 16:30] LABS: iSTAT Allen Test Pass; iSTAT Art Bld Gas pCO2 Correct 40 mmHg (35-46); iSTAT Art Bld Gas pH Corrected 7.455 (7.35-7.45); iSTAT Arterial Blood Gas HCO3 28 meg/L (19-24); iSTAT Arterial Blood Gas pCO2 40 mmHg (35-46); iSTAT Arterial Blood Gas pH 7.46 (7.35-7.45); iSTAT Arterial Blood Gas pO2 80 mmHg (80-95); iSTAT Arterial Blood Gas pO2 C 81; iSTAT Carbon Dioxide 29 mmol/L (24-31); iSTAT FiO2 70 %; iSTAT Hematocrit 40 % (42-52); iSTAT Hemoglobin 13.6 g/dl (14.0-18.0); iSTAT Potassium 4.1 mmol/L (3.3-5.0); iSTAT Site L Radial; iSTAT Sodium 140 mmol/L (135-144)
[2020-03-31] MEDS ORDERED: CISATRACURIUM BESYLATE IV SOLN 2 MG/ML 10 ML VIAL IV STA (16:41)
[2020-03-31] MEDS ORDERED: MIDAZOLAM HCL 5 MG/ML VIAL IV STA (16:45)
[2020-03-31] MEDS ORDERED: CISATRACURIUM BOLUS FROM BAG IV STA (16:47)
[2020-03-31] MEDS: MIDAZOLAM HCL 125 MG/250 ML BAG IV SCH (18:07)
[2020-03-31] MEDS: CISATRACURIUM BESYLATE 40 MG in 0.9 % SODIUM CHLORIDE 80 ML IV SCH ×2 (18:07→20:38)
[2020-03-31] MEDS: fentaNYL DRIP 1,250 MCG/250 ML BAG IV SCH ×2 (18:08→23:17)
--- NOTE | 2020-03-31 18:37 | XRay Report ---
XR chest 1V portable CLINICAL HISTORY: Central line placement. Respiratory failure INTUBATION COMPARISON STUDY: 03/30/2020 FINDINGS: The heart is enlarged. There is been interval placement of a nasogastric tube which passes into the stomach. There is an endotracheal tube positioned 21 mm above the jagjit. There is a left lawson bclavian central venous catheter projected over the superior vena cava. There is no pneumothorax. The re are extensive bilateral pulmonary airspace opacities.[ IMPRESSION: 1. Endotracheal tube 21 mm above the jagjit 2. Left subclavian central venous catheter with its tip the atriocaval junction. No evidence of pneum othorax 3. Nasogastric tube which passes into the stomach 4. Extensive bilateral pulmonary airspace opacities ACT 112: Negative or not required by law. Electronically signed by: Juan J Chaparro M.D. 03/31/2020 6:36 PM
[2020-03-31] MEDS: cefTRIAXone SODIUM 2,000 MG in DEXTROSE 5% 50 ML IV SCH (18:53)
[2020-03-31] MEDS ORDERED: fentaNYL citrate 100 MCG/2 ML VIAL ONE (18:54)
[2020-03-31] MEDS ORDERED: MIDAZOLAM HCL 5 MG/ML 1 ML VIAL ONE (18:54)
--- NOTE | 2020-03-31 19:19 | Procedure Note ---
Procedure Note Date of Service Procedure Date: March 31, 2020 Procedure: Endotracheal intubation Pre-procedure Diagnosis: Acute hypoxic respiratory failure secondary to COVID-19 pneumonia Post-procedure Diagnosis: same as above Prior to Procedure: Informed Consent: Extensive discussion with the patient was undertaken as well as with the hospitalist service with the patient regarding need for intubation informed consent was obtained Attending Staff: Akila Renner DO The identity of the patient was confirmed and a bedside time out was performed. Description of Procedure: Patient was evaluated and required intubation for impending respiratory failure. The patient was prepared in the usual fashion. A 3 MAC video laryngoscope was used. A 8.5 mm inner diameter endotrachial tube was placed endotracheally to 25 cm at the teeth. A grade 1 view was obtained. The endotracheal tube was noted to pass through the vocal cords. Chest rise was bilateral. Bilateral breath sounds were heard without air sounds in the abdomen. Mist was noted in the endotracheal tube. End-tidal CO2 measurement was positive. Chest x-ray shows proper endotracheal tube placement. Complications: Patient has widespread dental caries and poor dentition, #8 was pre-existing rotation with gum recession and loose, during intubation some blood was noted to come from around the gum however the tooth remained in the socket. Findings: Not applicable Specimens: Not applicable Estimated blood loss: Zero Coding CPT Codes Resuscitation - Resuscitation: 82506 Endotracheal Intubation, emergency ([id number]) [facility] Procedure Codes (Charges) Resuscitation Resuscitation: 35416 Endotracheal Intubation, emergency
--- NOTE | 2020-03-31 19:21 | Procedure Note ---
Procedure Note Date of Service March 31, 2020 Procedure date: Noted above Procedure: Radial artery cannulation Pre-procedure Diagnosis: Need for invasive monitoring, frequent blood draws] Post-procedure Diagnosis: same as above Prior to Procedure: Informed Consent: The risks, benefits, indications, potential complications, and alternatives were explained to the patient and informed consent obtained. Attending Staff: Akila Renner DO Skin Prep: Chlorhexidine Anesthesia: 3 mL 1% lidocaine without epinephrine The identity of the patient was confirmed and a bedside time out was performed. Description of Procedure: After sterile prep and sterile drape utilizing standard sterile technique the superficial skin of the left radial artery was anesthetized. The target artery was identified via dynamic ultrasound guidance and entered with a 20-gauge arrow Angiocath. Pulsatile bright red blood return was noted. Via modified Seldinger technique the self-contained guidewire was advanced and the Angiocath advanced over the guidewire. The guidewire was removed and brisk arterial blood return was noted. The pressure monitor was connected, and the arterial line was secured via commercial securement device. A sterile dressing was then applied. Complications: None Estimated blood loss: Trace Patient tolerated the procedure well. Coding
[2020-03-31] MEDS: MELATONIN 3 MG TAB PO SCH (20:40)
[2020-04-01] MEDS: CISATRACURIUM BESYLATE 40 MG in 0.9 % SODIUM CHLORIDE 80 ML IV SCH ×4 (01:28→19:34)
[2020-04-01] MEDS: MIDAZOLAM HCL 125 MG/250 ML BAG IV SCH ×2 (05:17→17:32)
[2020-04-01] MEDS: fentaNYL DRIP 1,250 MCG/250 ML BAG IV SCH ×2 (06:48→14:57)
[2020-04-01] MEDS: dexAMETHasone 6 MG in SYRINGE 0 ML IV SCH (07:56)
[2020-04-01] MEDS: AZITHROMYCIN 500 MG in DEXTROSE 5% 250 ML IV SCH (07:56)
[2020-04-01] MEDS: HEPARIN SOD 5,000 UNIT/0.5 ML VIAL SQ SCH (07:57)
[2020-04-01] MEDS: PANTOprazole 40 MG in SYRINGE 0 ML IV SCH (14:57)
[2020-04-01] MEDS: cefTRIAXone SODIUM 2,000 MG in DEXTROSE 5% 50 ML IV SCH (18:28)
[2020-04-01] MEDS: MELATONIN 3 MG TAB PO SCH (20:19)
[2020-04-01] MEDS: ENOXAPARIN INJ 40 MG/0.4 ML SYR SQ SCH (21:17)
--- NOTE | 2020-04-01 21:39 | Hospitalist Progress Note ---
Date of Service April 01, 2020 Assessment & Plan (1) Acute respiratory failure with hypoxia: labored breathing, using accessory muscles, profound hypoxia requiring BIPAP on 03/31 intubated in the evening and place prone returned to supine this morning doing well on PEEP 10 and FiO2 of only 30% management per Dr. Renner on Nimbex, versed, fentanyl for sedation check labs tomorrow AM (2) Pneumonia due to 2019-nCoV: Tested positive in the ED; symptoms x about 1 week at [facility]. No PE on CTA on 03/30 - Dexamethasone 6 mg PO daily x 10 days, day 3 - Remdesivir not shown to help in [facility] trial - Convalescent plasma of limited benefit in [facility] trial, plus patient is 1 week from symptom onset. - Will treat with CAP abx given elevated WBC and procalcitonin. MRSA swab negative. Continue ceftriaxone & azithromycin for 5-7 days respiratory status deteriorating, severe COVID pneumonia at this point required intubation on 03/31, was prone and now supine again (3) CARSON (acute kidney injury): No know prior renal issues. - Cr was 1.7 on admission; likely due to pre-renal as he has not eaten or drank much in the last week. - IV fluids - CR improved to 1.1 yesterday check labs tomorrow (4) Hypertension: Reports hx of HTN, but on no meds for this. BP today is stable today as he is sedated (5) DVT prophylaxis: change to Lovenox now that renal function improved Admission and Anticipated Discharge Date Admission Date: March 29, 2020 Subjective patient intubated last night and placed prone turned to supine position this morning by Dr. Renner and RN and respiratory therapy no labs today saturations are in low 90's on Nimbex, Versed, Fentanyl for sedation FiO2 down to 40% and then 30%, doing well on vent, PEEP 10, RR 16 Review of Systems Review of Systems: Unobtainable due to endotracheal tube Physical Exam Constitutional: well developed, + morbidly obese and + mechanically ventilated Neck: trachea midline and + thick neck; + abnormal visual inspection (scar from prior tracheostomy) Respiratory: symmetric chest movement Auscultation: no crackles, no rales, no rhonchi and no wheezes Cardiovascular: RRR, no murmur, no edema Gastrointestinal (Abdomen): normal bowel sounds, soft, nontender, no hepatosplenomegaly Musculoskeletal: no cyanosis or clubbing, extremities motor strength 5/5 Skin: no rashes, warm and dry Neurologic: + obtunded; no focal motor deficits Psychiatric: Orientation: + not alert Lymphatic: no cervical or axillary lymphadenopathy Results & Data Results & Data ([facility]) Vital Signs (Past 12 Hours) Vital Signs Temp Pulse Pulse Resp BP BP Pulse Ox 04/01/20 20:45 71 137/73 04/01/20 20:24 36.7 C 62 137/73 93 04/01/20 20:00 36.7 C 63 93 04/01/20 19:54 36.7 C 67 128/71 93 04/01/20 19:28 62 16 94 04/01/20 19:24 36.8 C 67 67 16 130/72 143/75 H 96 04/01/20 19:21 36.8 C 68 132/73 96 04/01/20 19:00 36.8 C 67 96 04/01/20 15:26 71 16 92 04/01/20 10:49 78 16 91 04/01/20 09:54 36.2 C L 69 150/76 H 88 L Laboratory Results Laboratory Results - last 24 hr 04/01/20 04/01/20 04/01/20 00:02 06:01 12:23 POC Glucose 164 H 144 H 137 H 04/01/20 04/01/20 18:38 20:12 POC Glucose 143 H 140 H Medications Administered Current Inpatient Medications Acetaminophen (Acetaminophen 325 Mg Tab) 650 mg PO Q4H PRN PRN Reason: pain/fever Stop: 04/28/20 16:17 Albuterol (Albut/Ipratrop 3mg/0.5mg Neb 3 Ml Vial) 3 ml NEB QIDR PRN PRN Reason: Shortness Of Breath Or Wheezing Stop: 04/28/20 16:17 Last Admin: 03/30/20 20:01 Dose: 3 ml Documented by: Albuterol (Albuterol 0.5% Neb Soln 2.5 Mg/0.5 Ml Vial) 2.5 mg NEB Q6R PRN PRN Reason: short of breath Stop: 04/30/20 06:59 Enoxaparin Sodium (Enoxaparin Inj 40 Mg/0.4 Ml Syr) 40 mg SQ Q12 [facility] Stop: 05/01/20 20:59 Last Admin: 04/01/20 21:17 Dose: 40 mg Documented by: Fentanyl Citrate (Fentanyl Bolus From Bag) 50 mcg IV Q60M PRN PRN Reason: Pain or Agitation Stop: 04/14/20 08:34 Ceftriaxone Sodium 2,000 mg/ (Dextrose) 70 mls @ 100 mls/hr IV Q24H [facility]; Protocol Stop: 04/05/20 18:59 Last Infusion: 04/01/20 20:19 Dose: Infused Documented by: Lorazepam (Ativan) 0.5 mg in 1 mls @ 1 mls/min IV Q4H PRN PRN Reason: Agitation Stop: 04/30/20 05:15 Last Admin: 03/31/20 05:30 Dose: 1 mls/min Documented by: Fentanyl Citrate (Fentanyl Drip) 1,250 mcg in 250 mls @ 30 mls/hr IV .Q8H20M [facility]; Protocol Stop: 04/14/20 08:44 Last Titration: 04/01/20 19:25 Dose: 150 mcg/hr, 30 mls/hr Documented by: Dexamethasone 6 mg/ Syringe 1.5 mls @ 1 mls/min IV DAILY [facility] Stop: 04/30/20 10:29 Last Admin: 04/01/20 07:56 Dose: 1 mls/min Documented by: Azithromycin 500 mg/ Dextrose 255 mls @ 125 mls/hr IV DAILY [facility] Stop: 04/07/20 10:29 Last Infusion: 04/01/20 10:00 Dose: Infused Documented by: Cisatracurium Besylate 40 mg/ (Sodium Chloride) 100 mls @ 18.495 mls/hr IV .Q5H25M [facility]; Protocol Stop: 04/30/20 16:59 Last Admin: 04/01/20 19:34 Dose: 1.5 mcg/kg/min, 18.5 mls/hr Documented by: Midazolam HCl (Versed) 125 mg in 250 mls @ 22 mls/hr IV .[id number] [facility]; Protocol Stop: 04/30/20 16:59 Last Titration: 04/01/20 19:25 Dose: 11 mg/hr, 22 mls/hr Documented by: Pantoprazole Sodium 40 mg/ (Syringe) 10 mls @ 5 mls/min IV DAILY@1200 [facility] Stop: 05/01/20 11:59 Last Admin: 04/01/20 14:57 Dose: 5 mls/min Documented by: Melatonin (Melatonin 3 Mg Tab) 6 mg PO HS [facility] Stop: 04/29/20 20:59 Last Admin: 04/01/20 20:19 Dose: Not Given Documented by: Midazolam HCl (Midazolam Bolus From Bag) 2 mg IV Q60M PRN PRN Reason: Sedation Stop: 04/30/20 16:59 Ondansetron HCl (Ondansetron Inj 2 Mg/Ml 2 Ml Vial) 4 mg IV Q6H PRN PRN Reason: Nausea Stop: 04/28/20 16:17 PG Care Time/CCT Total # of Minutes Spent Total Time Spent with Patient: Total time spent is greater than 50% in coordination of care (as documented) at patient's floor/unit and/or counseling patient: Coding Level of Care Code 58018 Subseq Hosp Care Lvl 3 Diagnoses Acute respiratory failure with hypoxia J96.01 Pneumonia due to 2019-nCoV U07.1; J12.89 CARSON (acute kidney injury) N17.9 Hypertension I10 DVT prophylaxis Z29.9
[2020-04-02] MEDS: fentaNYL DRIP 1,250 MCG/250 ML BAG IV SCH ×5 (00:28→19:31)
[2020-04-02] MEDS: CISATRACURIUM BESYLATE 40 MG in 0.9 % SODIUM CHLORIDE 80 ML IV SCH ×6 (01:18→21:37)
[2020-04-02 06:44] LABS: Hematocrit (blood only) 38.6 % (42-52); Hemoglobin 12.6 g/dL (14.0-18.0); Mean Corpuscular Hemoglobin 29.9 pg (25-34); Mean Corpuscular Hgb Conc 32.6 g/dL (32-36); Mean Corpuscular Volume 91.7 fL (80-100); Mean Platelet Volume 8.6 fL (7.4-10.4); Platelet Count 305 K/uL (130-400); RDW Coefficient of Variation 14.6 % (11.5-14.5); RDW Standard Deviation 49.5 fL (36.4-46.3); Red Blood Count 4.21 M/uL (4.7-6.1); White Blood Count 5.48 K/uL (4.8-10.8)
[2020-04-02] MEDS: MIDAZOLAM HCL 125 MG/250 ML BAG IV SCH ×2 (06:45→19:31)
[2020-04-02 07:14] LABS: Albumin Level 2.5 gm/dl (3.4-5.0); BUN Creatinine Ratio 28.3 (10-20); Calcium 8.9 mg/dl (8.5-10.1); Creatinine Clr Calc Pharmacy 151.3 ml/min; Est GFR (African American) 118.6; Est GFR (Non-African American) 102.3
[2020-04-02 07:17] LABS: Albumin Globulin Ratio 0.6 (0.9-2); Bilirubin,Total 0.5 mg/dl (0.2-1); Globulin 4.3 gm/dl (2.5-4.0); Total Protein 6.8 gm/dl (6.4-8.2)
[2020-04-02] MEDS ORDERED: METOPROLOL TARTRATE 1 MG/ML VIAL IV STA ×2 (08:39→12:35)
[2020-04-02] MEDS ORDERED: METOPROLOL TARTRATE 1 MG/ML VIAL IV ONE ×2 (08:43→12:31)
[2020-04-02] MEDS: AZITHROMYCIN 500 MG in DEXTROSE 5% 250 ML IV SCH (08:47)
[2020-04-02] MEDS: dexAMETHasone 6 MG in SYRINGE 0 ML IV SCH (08:47)
--- NOTE | 2020-04-02 09:34 | Hospitalist Progress Note ---
Date of Service April 02, 2020 Assessment & Plan (1) Acute respiratory failure with hypoxia: labored breathing, using accessory muscles, profound hypoxia requiring BIPAP on 03/31 intubated in the evening and place prone returned to supine 04/01 and now prone again doing well on PEEP 10 and FiO2 of only 30%, RR 16 and TV [address] Renner likely turn supine later today CBC and BMP stable today (2) Pneumonia due to 2019-nCoV: Tested positive in the ED; symptoms x about 1 week at [facility]. No PE on CTA on 03/30 - Dexamethasone 6 mg PO daily x 10 days, day 4 - Remdesivir not shown to help in [facility] trial - Convalescent plasma of limited benefit in [facility] trial, plus patient is 1 week from symptom onset. - Will treat with CAP abx given elevated WBC and procalcitonin. MRSA swab negative. Continue ceftriaxone & azithromycin for 5-7 days, today is day 4 required intubation on 03/31, intermittent proning to limit shunt physiology (3) CARSON (acute kidney injury): No know prior renal issues. - Cr was 1.7 on admission; likely due to pre-renal as he has not eaten or drank much in the last week. - IV fluids - CR improved to 0.88 today, electrolytes stable (4) Hypertension: Reports hx of HTN, but on no meds for this. BP today is elevated while prone was better yesterday adjust sedation per ICU (5) DVT prophylaxis: change to Lovenox now that renal function improved Admission and Anticipated Discharge Date Admission Date: March 29, 2020 Subjective patient turned prone again, oxygenating well with PEEP 10 and FiO2 of 30% plan for supine again today checked labs, WBC 5k, Hb 12, BMP with normal electrolytes Review of Systems Review of Systems: Unobtainable due to endotracheal tube Physical Exam Constitutional: well developed, + morbidly obese and + mechanically ventilated (prone) Neck: trachea midline and + thick neck; + abnormal visual inspection (scar from prior tracheostomy) Respiratory: symmetric chest movement Auscultation: no crackles, no rales, no rhonchi and no wheezes Cardiovascular: RRR, no murmur, no edema Gastrointestinal (Abdomen): normal bowel sounds, soft, nontender, no hepatosplenomegaly Musculoskeletal: no cyanosis or clubbing, extremities motor strength 5/5 Skin: no rashes, warm and dry Neurologic: + obtunded; no focal motor deficits Psychiatric: Orientation: + not alert Lymphatic: no cervical or axillary lymphadenopathy Results & Data Results & Data ([facility]) Vital Signs (Past 12 Hours) Vital Signs Temp Pulse Resp BP Pulse Ox 04/02/20 08:47 71 217/86 H 04/02/20 08:15 71 16 93 04/02/20 08:00 36.9 C 67 159/64 H 95 04/02/20 07:55 36.9 C 67 154/79 H 96 04/02/20 07:36 37.0 C 67 163/89 H 95 04/02/20 07:30 37.0 C 65 95 04/02/20 07:25 37.0 C 67 155/79 H 95 04/02/20 07:00 37.0 C 66 95 04/02/20 06:55 37.0 C 66 152/77 H 94 04/02/20 06:45 37.0 C 63 95 04/02/20 06:00 37.0 C 64 93 04/02/20 05:55 37.0 C 63 162/84 H 93 04/02/20 05:25 37.0 C 63 145/77 H 94 04/02/20 05:09 37.0 C 62 173/87 H 92 04/02/20 05:00 37.0 C 64 94 04/02/20 04:56 37.0 C 62 94 04/02/20 04:55 37.0 C 65 141/74 H 94 04/02/20 04:25 37.0 C 65 142/80 H 94 04/02/20 04:00 36.9 C 62 169/75 H 93 04/02/20 03:55 36.9 C 62 140/73 93 04/02/20 03:25 36.9 C 62 137/73 94 04/02/20 03:00 36.9 C 62 93 04/02/20 02:55 36.9 C 68 136/74 93 04/02/20 02:26 36.9 C 67 92 04/02/20 02:25 36.9 C 61 147/78 H 93 04/02/20 02:22 63 16 93 04/02/20 02:00 36.9 C 60 94 04/02/20 01:55 36.9 C 65 131/74 94 04/02/20 01:24 36.9 C 65 142/75 H 94 04/02/20 01:00 36.9 C 61 93 04/02/20 00:55 36.9 C 62 135/73 93 04/02/20 00:24 36.8 C 60 138/75 93 04/02/20 00:00 36.8 C 64 135/73 93 04/01/20 23:54 36.8 C 65 133/69 94 04/01/20 23:24 36.8 C 67 134/71 92 04/01/20 23:00 36.8 C 65 92 04/01/20 22:54 36.8 C 64 134/72 93 04/01/20 22:45 66 16 93 04/01/20 22:24 36.8 C 65 136/74 92 04/01/20 22:00 36.8 C 65 93 04/01/20 21:54 36.8 C 94 H 141/87 H 93 Laboratory Results Laboratory Results - last 24 hr 04/01/20 04/01/20 04/01/20 12:23 18:38 20:12 WBC RBC Hgb Hct MCV MCH MCHC RDW Std Deviation RDW Coeff of Harmony Plt Count MPV Sodium Potassium Chloride Carbon Dioxide Anion Gap BUN Creatinine Est Cr Clr Drug Dosing Est GFR ( Amer) Est GFR (Non-Af Amer) BUN/Creatinine Ratio Glucose POC Glucose 137 H 143 H 140 H Calcium Total Bilirubin AST ALT Alkaline Phosphatase Total Protein Albumin Globulin Albumin/Globulin Ratio 04/02/20 04/02/20 04/02/20 00:30 05:52 05:52 WBC 5.48 RBC 4.21 L Hgb 12.6 L Hct 38.6 L MCV 91.7 MCH 29.9 MCHC 32.6 RDW Std Deviation 49.5 H RDW Coeff of Harmony 14.6 H Plt Count 305 MPV 8.6 Sodium 144 D Potassium 4.0 Chloride 107 Carbon Dioxide 32 Anion Gap 4.0 BUN 25 H Creatinine 0.88 Est Cr Clr Drug Dosing 151.3 Est GFR ( Amer) 118.6 Est GFR (Non-Af Amer) 102.3 BUN/Creatinine Ratio 28.3 H Glucose 118 H POC Glucose 138 H Calcium 8.9 Total Bilirubin 0.5 AST 35 ALT 65 Alkaline Phosphatase 49 Total Protein 6.8 Albumin 2.5 L Globulin 4.3 H Albumin/Globulin Ratio 0.6 L 04/02/20 05:56 WBC RBC Hgb Hct MCV MCH MCHC RDW Std Deviation RDW Coeff of Harmony Plt Count MPV Sodium Potassium Chloride Carbon Dioxide Anion Gap BUN Creatinine Est Cr Clr Drug Dosing Est GFR ( Amer) Est GFR (Non-Af Amer) BUN/Creatinine Ratio Glucose POC Glucose 82 Calcium Total Bilirubin AST ALT Alkaline Phosphatase Total Protein Albumin Globulin Albumin/Globulin Ratio Medications Administered Current Inpatient Medications Acetaminophen (Acetaminophen 325 Mg Tab) 650 mg PO Q4H PRN PRN Reason: pain/fever Stop: 04/28/20 16:17 Albuterol (Albut/Ipratrop 3mg/0.5mg Neb 3 Ml Vial) 3 ml NEB QIDR PRN PRN Reason: Shortness Of Breath Or Wheezing Stop: 04/28/20 16:17 Last Admin: 03/30/20 20:01 Dose: 3 ml Documented by: Albuterol (Albuterol 0.5% Neb Soln 2.5 Mg/0.5 Ml Vial) 2.5 mg NEB Q6R PRN PRN Reason: short of breath Stop: 04/30/20 06:59 Enoxaparin Sodium (Enoxaparin Inj 40 Mg/0.4 Ml Syr) 40 mg SQ Q12 [facility] Stop: 05/01/20 20:59 Last Admin: 04/01/20 21:17 Dose: 40 mg Documented by: Fentanyl Citrate (Fentanyl Bolus From Bag) 50 mcg IV Q60M PRN PRN Reason: Pain or Agitation Stop: 04/14/20 08:34 Last Admin: 04/02/20 06:45 Dose: 50 mcg Documented by: Ceftriaxone Sodium 2,000 mg/ (Dextrose) 70 mls @ 100 mls/hr IV Q24H [facility]; Protocol Stop: 04/05/20 18:59 Last Infusion: 04/01/20 20:19 Dose: Infused Documented by: Lorazepam (Ativan) 0.5 mg in 1 mls @ 1 mls/min IV Q4H PRN PRN Reason: Agitation Stop: 04/30/20 05:15 Last Admin: 03/31/20 05:30 Dose: 1 mls/min Documented by: Fentanyl Citrate (Fentanyl Drip) 1,250 mcg in 250 mls @ 40 mls/hr IV .Q6H15M [facility]; Protocol Stop: 04/14/20 08:44 Last Admin: 04/02/20 07:38 Dose: Not Given Documented by: Dexamethasone 6 mg/ Syringe 1.5 mls @ 1 mls/min IV DAILY [facility] Stop: 04/30/20 10:29 Last Admin: 04/02/20 08:47 Dose: 1 mls/min Documented by: Azithromycin 500 mg/ Dextrose 255 mls @ 125 mls/hr IV DAILY [facility] Stop: 04/07/20 10:29 Last Admin: 04/02/20 08:47 Dose: 125 mls/hr Documented by: Cisatracurium Besylate 40 mg/ (Sodium Chloride) 100 mls @ 15.413 mls/hr IV .Q6H30M [facility]; Protocol Stop: 04/30/20 16:59 Last Titration: 04/02/20 07:54 Dose: 1.25 mcg/kg/min, 15.4 mls/hr Documented by: Midazolam HCl (Versed) 125 mg in 250 mls @ 22 mls/hr IV .[id number] [facility]; Protocol Stop: 04/30/20 16:59 Last Titration: 04/02/20 06:55 Dose: 11 mg/hr, 22 mls/hr Documented by: Pantoprazole Sodium 40 mg/ (Syringe) 10 mls @ 5 mls/min IV DAILY@1200 [facility] Stop: 05/01/20 11:59 Last Admin: 04/01/20 14:57 Dose: 5 mls/min Documented by: Melatonin (Melatonin 3 Mg Tab) 6 mg PO HS [facility] Stop: 04/29/20 20:59 Last Admin: 04/01/20 20:19 Dose: Not Given Documented by: Midazolam HCl (Midazolam Bolus From Bag) 2 mg IV Q60M PRN PRN Reason: Sedation Stop: 04/30/20 16:59 Ondansetron HCl (Ondansetron Inj 2 Mg/Ml 2 Ml Vial) 4 mg IV Q6H PRN PRN Reason: Nausea Stop: 04/28/20 16:17 PG Care Time/CCT Total # of Minutes Spent Total Time Spent with Patient: Total time spent is greater than 50% in coordination of care (as documented) at patient's floor/unit and/or counseling patient: Coding Level of Care Code 74167 Subseq Hosp Care Lvl 3 Diagnoses Acute respiratory failure with hypoxia J96.01 Pneumonia due to 2019-nCoV U07.1; J12.89 CARSON (acute kidney injury) N17.9 Hypertension I10 DVT prophylaxis Z29.9
[2020-04-02] MEDS: PANTOprazole 40 MG in SYRINGE 0 ML IV SCH (11:10)
--- NOTE | 2020-04-02 11:54 | Critical Care Progress Note ---
Date of Service April 02, 2020 Assessment & Plan (1) Acute respiratory distress syndrome (ARDS) due to 2019 novel coronavirus: Reason Critically Ill: 49-year-old male with acute respiratory distress syndrome secondary to COVID-19 pneumonia PLAN: Neuro: Sedation with Versed and fentanyl infusions Resp: Severe respiratory distress syndrome -Patient improved in prone position -Compliance mildly worse in supine position will consider pronation around 2 PM CV: Hypertension -Adding amlodipine 5 mg -Required beta-leesa in addition for systolics into 200s Fluids/Renal: Acute kidney injury: Resolved -Avoiding renal toxic medications at this time, unknown baseline ID: Patient on ceftriaxone this is different and correct from yesterday's note which was noted in air -Ceftriaxone day 5 of 7 -No growth in blood cultures to date -White count within normal limits, afebrile COVID-19 pneumonic process GI/Nutrition: N.p.o. if patient is intubated Obesity: BMI 38 Heme: DVT prophylaxis: Lovenox twice daily Endocrine: ICU hyperglycemia protocol Vascular access: Peripheral IVs Code Status: Full Disposition: ICU (2) Pneumonia due to 2019-nCoV: (3) Hypertension: (4) Hypoxia: (5) CARSON (acute kidney injury): (6) Acute respiratory failure with hypoxia: (7) Imprisonment and other incarceration: Admission and Anticipated Discharge Date Admission Date: March 29, 2020 Supervising Physician Co-Signing Physician Notes Patient was discussed in multidisciplinary rounds. I have personally spent 45 minutes of critical care time in the direct management of this patient. This is a life/limb threatening event. This includes time spent evaluating patient, direct bedside care, chart review, placing orders, interpretation of diagnostic studies, discussion with consultants, patient, and/or family members regarding treatment decisions, as well as other required patient management activities. This time is exclusive of all separately billable procedures, and teaching time and separate from and in addition to any other critical care service time. Subjective No overnight events, patient's ventilatory requirements have decreased, his compliance was approximately 40 this morning. Review of Systems Review of Systems: Unobtainable due to endotracheal tube Physical Exam Physical Exam: General: Sedated under neuromuscular blockade Glascow Coma Scale: Eyes: 3 TP. nontoxic. Skin: Warm, dry, Head: Atraumatic Ears, nose, mouth and throat: Obscured by endotracheal tube, significant drainage from nasopharynx Cardiovascular: Normal peripheral perfusion Respiratory: Ventilator settings reviewed. Patient has had improved oxygenation in the prone position his compliance went from 30s into 50s and 60s in the prone position Gastrointestinal: Non distended Musculoskeletal: No deformity Results & Data Results & Data ([facility]) Vital Signs (Past 12 Hours) Vital Signs Temp Pulse Resp BP Pulse Ox 04/02/20 11:14 67 193/81 H 04/02/20 11:00 37.1 C 67 94 04/02/20 10:55 37.0 C 69 162/93 H 94 04/02/20 10:30 37.0 C 70 94 04/02/20 10:25 37.0 C 71 156/85 H 94 04/02/20 10:00 37.1 C 66 94 04/02/20 09:55 37.0 C 68 157/87 H 94 04/02/20 09:30 37.0 C 69 94 04/02/20 09:25 37.0 C 67 150/86 H 95 04/02/20 09:00 36.9 C 63 94 04/02/20 08:55 36.9 C 62 162/87 H 94 04/02/20 08:47 71 217/86 H 04/02/20 08:30 36.9 C 70 94 04/02/20 08:25 36.9 C 68 171/91 H 96 04/02/20 08:15 71 16 93 04/02/20 08:00 36.9 C 67 159/64 H 95 04/02/20 07:55 36.9 C 67 154/79 H 96 04/02/20 07:36 37.0 C 67 163/89 H 95 04/02/20 07:30 37.0 C 65 95 04/02/20 07:25 37.0 C 67 155/79 H 95 04/02/20 07:00 37.0 C 66 95 04/02/20 06:55 37.0 C 66 152/77 H 94 04/02/20 06:45 37.0 C 63 95 04/02/20 06:00 37.0 C 64 93 04/02/20 05:55 37.0 C 63 162/84 H 93 04/02/20 05:25 37.0 C 63 145/77 H 94 04/02/20 05:09 37.0 C 62 173/87 H 92 04/02/20 05:00 37.0 C 64 94 04/02/20 04:56 37.0 C 62 94 04/02/20 04:55 37.0 C 65 141/74 H 94 04/02/20 04:25 37.0 C 65 142/80 H 94 04/02/20 04:00 36.9 C 62 169/75 H 93 04/02/20 03:55 36.9 C 62 140/73 93 04/02/20 03:25 36.9 C 62 137/73 94 04/02/20 03:00 36.9 C 62 93 04/02/20 02:55 36.9 C 68 136/74 93 04/02/20 02:26 36.9 C 67 92 04/02/20 02:25 36.9 C 61 147/78 H 93 04/02/20 02:22 63 16 93 04/02/20 02:00 36.9 C 60 94 04/02/20 01:55 36.9 C 65 131/74 94 04/02/20 01:24 36.9 C 65 142/75 H 94 04/02/20 01:00 36.9 C 61 93 04/02/20 00:55 36.9 C 62 135/73 93 04/02/20 00:24 36.8 C 60 138/75 93 04/02/20 00:00 36.8 C 64 135/73 93 Coding Level of Care Code Critical Care 1st 30-74 mins Diagnoses Acute respiratory distress syndrome (ARDS) due to 2019 novel coronavirus U07.1; J80 Pneumonia due to 2019-nCoV U07.1; J12.89 Hypertension I10 Hypertension type: essential hypertension Hypoxia R09.02 CARSON (acute kidney injury) N17.9 Acute respiratory failure with hypoxia J96.01 Imprisonment and other incarceration Z65.1 Time Spent (min) 45 (1) Hypertension Hypertension type: essential hypertension Qualified Code(s): I10 - Essential (primary) hypertension
--- NOTE | 2020-04-02 11:54 | Critical Care Progress Note ---
Date of Service April 01, 2020 Assessment & Plan (1) Acute respiratory distress syndrome (ARDS) due to 2019 novel coronavirus: Reason Critically Ill: 49-year-old male with acute respiratory distress syndrome secondary to COVID-19 pneumonia PLAN: Neuro: Sedation with Versed and fentanyl infusions Resp: Severe respiratory distress syndrome -Patient improved in prone position -Compliance mildly worse in supine position will likely repeat proning later today around 2 PM CV: Hypertension -Not currently on medication Fluids/Renal: Acute kidney injury: Resolved -Avoiding renal toxic medications at this time, unknown baseline ID: Patient on ceftriaxone this is different and correct from yesterday's note which was noted in air -Ceftriaxone day 4 of 7 -No growth in blood cultures to date -White count within normal limits, afebrile COVID-19 pneumonic process GI/Nutrition: N.p.o. if patient is intubated Obesity: BMI 38 Heme: DVT prophylaxis: Convert to Lovenox twice daily given body habitus and COVID-19 Endocrine: ICU hyperglycemia protocol Vascular access: Peripheral IVs Code Status: Full Disposition: ICU (2) Pneumonia due to 2019-nCoV: (3) Hypertension: (4) Hypoxia: (5) CARSON (acute kidney injury): (6) Acute respiratory failure with hypoxia: (7) Imprisonment and other incarceration: Admission and Anticipated Discharge Date Admission Date: March 29, 2020 Supervising Physician Co-Signing Physician Notes Patient was discussed in multidisciplinary rounds. I was present and assisted with the return from pronation. Patient tolerated the return movement. Later that afternoon I was present and assisted with the pronating process. Patient tolerated the pronating movement. I have personally spent 85 minutes of critical care time in the direct management of this patient. This is a life/limb threatening event. This includes time spent evaluating patient, direct bedside care, chart review, placing orders, interpretation of diagnostic studies, discussion with consultants, patient, and/or family members regarding treatment decisions, as well as other required patient management activities. This time is exclusive of all separately billable procedures, and teaching time and separate from and in addition to any other critical care service time. Subjective No overnight events. Patient has been proned and we have returned him to the supine position. Review of Systems Review of Systems: Unobtainable due to endotracheal tube Physical Exam Physical Exam: General: Sedated under neuromuscular blockade Glascow Coma Scale: Eyes: 3 TP. nontoxic. Skin: Warm, dry, Head: Atraumatic Ears, nose, mouth and throat: Obscured by endotracheal tube, significant drainage from nasopharynx Cardiovascular: Normal peripheral perfusion Respiratory: Ventilator settings reviewed. Patient has had improved oxygenation in the prone position his compliance went from 30s into 50s and 60s in the prone position Gastrointestinal: Non distended Musculoskeletal: No deformity Results & Data Results & Data ([facility]) Vital Signs (Past 12 Hours) Vital Signs Temp Pulse Resp BP Pulse Ox 04/02/20 11:14 67 193/81 H 04/02/20 11:00 37.1 C 67 94 04/02/20 10:55 37.0 C 69 162/93 H 94 04/02/20 10:30 37.0 C 70 94 04/02/20 10:25 37.0 C 71 156/85 H 94 04/02/20 10:00 37.1 C 66 94 04/02/20 09:55 37.0 C 68 157/87 H 94 04/02/20 09:30 37.0 C 69 94 04/02/20 09:25 37.0 C 67 150/86 H 95 04/02/20 09:00 36.9 C 63 94 04/02/20 08:55 36.9 C 62 162/87 H 94 04/02/20 08:47 71 217/86 H 04/02/20 08:30 36.9 C 70 94 04/02/20 08:25 36.9 C 68 171/91 H 96 04/02/20 08:15 71 16 93 04/02/20 08:00 36.9 C 67 159/64 H 95 04/02/20 07:55 36.9 C 67 154/79 H 96 04/02/20 07:36 37.0 C 67 163/89 H 95 04/02/20 07:30 37.0 C 65 95 04/02/20 07:25 37.0 C 67 155/79 H 95 04/02/20 07:00 37.0 C 66 95 04/02/20 06:55 37.0 C 66 152/77 H 94 04/02/20 06:45 37.0 C 63 95 04/02/20 06:00 37.0 C 64 93 04/02/20 05:55 37.0 C 63 162/84 H 93 04/02/20 05:25 37.0 C 63 145/77 H 94 04/02/20 05:09 37.0 C 62 173/87 H 92 04/02/20 05:00 37.0 C 64 94 04/02/20 04:56 37.0 C 62 94 04/02/20 04:55 37.0 C 65 141/74 H 94 04/02/20 04:25 37.0 C 65 142/80 H 94 04/02/20 04:00 36.9 C 62 169/75 H 93 04/02/20 03:55 36.9 C 62 140/73 93 04/02/20 03:25 36.9 C 62 137/73 94 04/02/20 03:00 36.9 C 62 93 04/02/20 02:55 36.9 C 68 136/74 93 04/02/20 02:26 36.9 C 67 92 04/02/20 02:25 36.9 C 61 147/78 H 93 04/02/20 02:22 63 16 93 04/02/20 02:00 36.9 C 60 94 04/02/20 01:55 36.9 C 65 131/74 94 04/02/20 01:24 36.9 C 65 142/75 H 94 04/02/20 01:00 36.9 C 61 93 04/02/20 00:55 36.9 C 62 135/73 93 04/02/20 00:24 36.8 C 60 138/75 93 04/02/20 00:00 36.8 C 64 135/73 93 04/01/20 23:54 36.8 C 65 133/69 94 Laboratory Results I reviewed his laboratory values Coding Level of Care Code Critical Care ea addt'l 30 min Diagnoses Acute respiratory distress syndrome (ARDS) due to 2019 novel coronavirus U07.1; J80 Pneumonia due to 2019-nCoV U07.1; J12.89 Hypertension I10 Hypertension type: essential hypertension Hypoxia R09.02 CARSON (acute kidney injury) N17.9 Acute respiratory failure with hypoxia J96.01 Imprisonment and other incarceration Z65.1 (1) Hypertension Hypertension type: essential hypertension Qualified Code(s): I10 - Essential (primary) hypertension
[2020-04-02] MEDS: ENOXAPARIN INJ 40 MG/0.4 ML SYR SQ SCH ×2 (13:12→20:41)
--- NOTE | 2020-04-02 13:44 | Communication Note ---
Date of Service: March 31, 2020 Patient's hypoxia has worsened, he is agreeable with intubation. He is also agreeable with a radial arterial line as well as central venous vascular access. Patient was intubated, he required a recruitment maneuver. He has a subclavian central venous catheter, radial art line and has been proned and is under the influence of neuromuscular blockade. Coding Level of Care Code Critical Care 1st 30-74 mins Time Spent (min) 40
--- NOTE | 2020-04-02 13:46 | Procedure Note ---
Procedure Note Date of Service March 31, 2020 Procedure date: Noted above Procedure: Central venous access Pre-procedure indication: Severe hypoxemia, proning Post-procedure Diagnosis: same as above Prior to Procedure: Informed Consent: The risks, benefits, indications, potential complications, and alternatives were explained to the patient and informed consent obtained. Attending Staff: Akila Renner DO Resident/APC: Not applicable Skin Prep: Chlorhexidine Anesthesia: 4 mL 1% lidocaine without epinephrine The identity of the patient was confirmed and a bedside time out was performed. Description of Procedure: After sterile prep and sterile drape utilizing standard sterile technique the superficial skin of the left subclavian area was anesthetized. The target vessel was identified and entered with an 18-gauge needle. Dark venous blood return was noted. A guidewire was inserted through the needle and into the vessel. The needle was withdrawn and a skin rhoda was made. A tissue dilator was advanced via Seldinger technique and removed. A triple lumen catheter was inserted via Seldinger technique and the guidewire removed. All ports aletha and flushed easily. A Biopatch was placed, and the catheter was secured via silk suture. A sterile dressing was then applied. Complications: None Estimated blood loss: Trace Patient tolerated the procedure well. Coding
[2020-04-02] MEDS: amLODIPine BESYLATE 5 MG TAB PO SCH (15:44)
[2020-04-02] MEDS ORDERED: LABETALOL HCL IV 5 MG/ML 20ML IV STA ×4 (16:14→23:01)
[2020-04-02] MEDS: cefTRIAXone SODIUM 2,000 MG in DEXTROSE 5% 50 ML IV SCH (18:01)
[2020-04-02] MEDS: ARTIFICIAL TEARS OP OINT 3.5 GM TUBE OP SCH (20:40)
[2020-04-02] MEDS: MELATONIN 3 MG TAB PO SCH (20:44)
[2020-04-02] MEDS: MIDAZOLAM BOLUS FROM BAG IV PRN (21:07)
[2020-04-03] MEDS: CISATRACURIUM BESYLATE 40 MG in 0.9 % SODIUM CHLORIDE 80 ML IV SCH ×5 (01:59→19:25)
[2020-04-03] MEDS: fentaNYL DRIP 1,250 MCG/250 ML BAG IV SCH ×9 (01:59→22:27)
[2020-04-03 05:36] LABS: iSTAT Allen Test Pass; iSTAT Art Bld Gas pCO2 Correct 62 mmHg (35-46); iSTAT Art Bld Gas pH Corrected 7.365 (7.35-7.45); iSTAT Arterial Blood Gas HCO3 35 meg/L (19-24); iSTAT Arterial Blood Gas pCO2 61 mmHg (35-46); iSTAT Arterial Blood Gas pH 7.37 (7.35-7.45); iSTAT Arterial Blood Gas pO2 53 mmHg (80-95); iSTAT Arterial Blood Gas pO2 C 55; iSTAT Carbon Dioxide 37 mmol/L (24-31); iSTAT FiO2 30 %; iSTAT Hematocrit 40 % (42-52); iSTAT Hemoglobin 13.6 g/dl (14.0-18.0); iSTAT Potassium 4.6 mmol/L (3.3-5.0); iSTAT Site Art Line; iSTAT Sodium 141 mmol/L (135-144)
[2020-04-03] MEDS: MIDAZOLAM HCL 125 MG/250 ML BAG IV SCH ×4 (05:37→21:54)
[2020-04-03 06:51] LABS: Basophils # (auto) 0.01 K/uL (0-0.2); Basophils % (auto) 0.2 %; Eosinophils # (auto) 0.01 K/uL (0-0.5); Eosinophils % (auto) 0.2 %; Hematocrit (blood only) 40.8 % (42-52); Hemoglobin 12.9 g/dL (14.0-18.0); Immature Granulocytes # (auto) 0.18 K/uL (0.00-0.02); Immature Granulocytes % (auto) 2.9 %; Lymphocytes # (auto) 1.37 K/uL (1.2-3.4); Lymphocytes % (auto) 21.9 %; Mean Corpuscular Hemoglobin 29.5 pg (25-34); Mean Corpuscular Hgb Conc 31.6 g/dL (32-36); Mean Corpuscular Volume 93.4 fL (80-100); Mean Platelet Volume 8.6 fL (7.4-10.4); Monocytes # (auto) 0.69 K/uL (0.11-0.59); Neutrophils % (auto) 63.8 %; Platelet Count 339 K/uL (130-400); RDW Coefficient of Variation 14.6 % (11.5-14.5); RDW Standard Deviation 50.2 fL (36.4-46.3); Red Blood Count 4.37 M/uL (4.7-6.1); White Blood Count 6.26 K/uL (4.8-10.8)
[2020-04-03 07:19] LABS: BUN Creatinine Ratio 27.2 (10-20); Calcium 8.2 mg/dl (8.5-10.1); Creatinine Clr Calc Pharmacy 172.1 ml/min; Est GFR (African American) 123.9; Est GFR (Non-African American) 106.9; Phosphorus 3.5 mg/dl (2.5-4.9); Potassium 4.4 mmol/L (3.5-5.1)
[2020-04-03] MEDS: dexAMETHasone 6 MG in SYRINGE 0 ML IV SCH (08:26)
[2020-04-03] MEDS: AZITHROMYCIN 500 MG in DEXTROSE 5% 250 ML IV SCH (08:26)
[2020-04-03] MEDS: amLODIPine BESYLATE 5 MG TAB PO SCH (08:29)
[2020-04-03] MEDS: ENOXAPARIN INJ 40 MG/0.4 ML SYR SQ SCH ×2 (08:29→20:41)
[2020-04-03] MEDS: ARTIFICIAL TEARS OP OINT 3.5 GM TUBE OP SCH ×2 (08:30→20:40)
--- NOTE | 2020-04-03 09:50 | XRay Report ---
XR chest 1V portable CLINICAL HISTORY: Respiratory failure COMPARISON STUDY: 03/31/2020 FINDINGS: There is a left subclavian central venous catheter unchanged in position. There is an endot terry tube positioned 49 mm above the jagjit. There is a nasogastric tube which passes into the sto mach. The heart is enlarged there are improving left lung airspace opacities. There are improving rig ht upper lung zone airspace opacities. There is progressive opacification of the right lung base. A r ight pleural effusion cannot be excluded. IMPRESSION: 1. Improving left lung and right upper lung airspace opacities 2. Progressive opacification of right lung base. A right pleural effusion cannot be excluded ACT 112: Negative or not required by law. Electronically signed by: Juan J Chaparro M.D. 04/03/2020 9:48 AM
[2020-04-03] MEDS: PANTOprazole 40 MG in SYRINGE 0 ML IV SCH (11:18)
[2020-04-03] MEDS ORDERED: CISATRACURIUM BESYLATE IV SOLN 2 MG/ML 10 ML VIAL IV ONE (15:45)
[2020-04-03] MEDS ORDERED: amLODIPine BESYLATE 5 MG TAB PO ONE (15:45)
--- NOTE | 2020-04-03 16:12 | Hospitalist Progress Note ---
Date of Service April 03, 2020 Assessment & Plan (1) Acute respiratory failure with hypoxia: labored breathing, using accessory muscles, profound hypoxia requiring BIPAP on 03/31 intubated in the evening and place prone continue intermittent prone for improved oxygenation PEEP up to 14 and FiO2 of 50%, RR 16 and TV [address] Renner CBC and BMP stable today (2) Pneumonia due to 2019-nCoV: Tested positive in the ED; symptoms x about 1 week at [facility]. No PE on CTA on 03/30 - Dexamethasone 6 mg PO daily x 10 days, day 5 - Remdesivir not shown to help in [facility] trial - Convalescent plasma of limited benefit in [facility] trial, plus patient is 1 week from symptom onset. - Will treat with CAP abx given elevated WBC and procalcitonin. MRSA swab negative. Continue ceftriaxone & azithromycin for 5-7 days, today is day 5 required intubation on 03/31, intermittent proning to limit shunt physiology (3) CARSON (acute kidney injury): No know prior renal issues. - Cr was 1.7 on admission; likely due to pre-renal as he has not eaten or drank much in the last week. - IV fluids - CR remains less than 1 today, adequate UO (4) Hypertension: Reports hx of HTN, but on no meds for this hypertensive without appropriate sedation but this is limited (5) DVT prophylaxis: change to Lovenox now that renal function improved Admission and Anticipated Discharge Date Admission Date: March 29, 2020 Subjective patient very agitated this morning after Nimbex discontinued stacking breaths, pulling at restraints increased Fentanyl and Versed discussed with Dr. Renner reviewed labs, CR and electrolytes stable, CBC stable DR. Renner will evaluate to turn prone again today Review of Systems Review of Systems: Unobtainable due to endotracheal tube Physical Exam Constitutional: well developed, + morbidly obese and + mechanically ventilated (prone) Neck: trachea midline and + thick neck; + abnormal visual inspection (scar from prior tracheostomy) Respiratory: symmetric chest movement Auscultation: no crackles, no rales, no rhonchi and no wheezes Cardiovascular: RRR, no murmur, no edema Gastrointestinal (Abdomen): normal bowel sounds, soft, nontender, no hepatosplenomegaly Musculoskeletal: no cyanosis or clubbing, extremities motor strength 5/5 Skin: no rashes, warm and dry Neurologic: patellar DTR's 2+ bilat, sensation intact and PERRL, EOMI, accommodation nl, no face palsy, no dysarthria + obtunded; no focal motor deficits Psychiatric: Orientation: + not alert Lymphatic: no cervical or axillary lymphadenopathy Results & Data Results & Data ([facility]) Vital Signs (Past 12 Hours) Vital Signs Temp Pulse Resp BP Pulse Ox 04/03/20 15:24 87 16 93 04/03/20 14:00 16 04/03/20 11:00 38.1 C H 90 20 125/76 95 04/03/20 10:56 89 19 92 04/03/20 10:03 16 04/03/20 10:00 37.9 C H 104 H 20 118/75 90 04/03/20 09:00 37.5 C 100 H 18 157/94 H 94 04/03/20 08:00 37.6 C H 93 H 16 156/82 H 93 04/03/20 07:34 93 H 16 93 04/03/20 07:00 37.5 C 91 H 16 171/103 H 97 04/03/20 06:25 37.5 C 90 135/79 97 04/03/20 05:25 37.4 C 88 144/84 H 98 04/03/20 05:21 16 04/03/20 04:25 37.4 C 93 H 146/81 H 91 Laboratory Results Laboratory Results - last 24 hr 04/02/20 04/03/20 04/03/20 18:00 00:09 05:21 WBC RBC Hgb POC Hgb 13.6 L Hct POC Hct 40 L MCV MCH MCHC RDW Std Deviation RDW Coeff of Harmony Plt Count MPV Immature Gran % (Auto) Neut % (Auto) Lymph % (Auto) Bay % (Auto) Eos % (Auto) Baso % (Auto) Neut # (Auto) Lymph # (Auto) Bay # (Auto) Eos # (Auto) Baso # (Auto) Immature Gran # (Auto) Sample Site Art Line POC pH 7.37 POC pCO2 61 H POC pO2 53 L POC HCO3 35 H POC Total CO2 37 H POC Base Excess 10.0 H ABG pH (Temp Correct) 7.365 ABG pCO2 (Temp Corrct 62 H POC ABG pO2 at Pt Temp 55 POC ABG O2 Sat 85.0 L Yordan Test Pass O2 Delivery Device Ventilator POC O2 Rate 16 POC FiO2 30 Tidal Volume 450 PEEP 14 POC Sodium 141 Sodium POC Potassium 4.6 Potassium Chloride Carbon Dioxide Anion Gap BUN Creatinine Est Cr Clr Drug Dosing Est GFR ( Amer) Est GFR (Non-Af Amer) BUN/Creatinine Ratio Glucose POC Glucose 129 H 119 H Calcium Phosphorus Magnesium 04/03/20 04/03/20 04/03/20 05:40 05:40 06:02 WBC 6.26 RBC 4.37 L Hgb 12.9 L POC Hgb Hct 40.8 L POC Hct MCV 93.4 MCH 29.5 MCHC 31.6 L RDW Std Deviation 50.2 H RDW Coeff of Harmony 14.6 H Plt Count 339 MPV 8.6 Immature Gran % (Auto) 2.9 Neut % (Auto) 63.8 Lymph % (Auto) 21.9 Bay % (Auto) 11.0 Eos % (Auto) 0.2 Baso % (Auto) 0.2 Neut # (Auto) 4.00 Lymph # (Auto) 1.37 Bay # (Auto) 0.69 H Eos # (Auto) 0.01 Baso # (Auto) 0.01 Immature Gran # (Auto) 0.18 H Sample Site POC pH POC pCO2 POC pO2 POC HCO3 POC Total CO2 POC Base Excess ABG pH (Temp Correct) ABG pCO2 (Temp Corrct POC ABG pO2 at Pt Temp POC ABG O2 Sat Yordan Test O2 Delivery Device POC O2 Rate POC FiO2 Tidal Volume PEEP POC Sodium Sodium 139 POC Potassium Potassium 4.4 Chloride 104 Carbon Dioxide 33 H Anion Gap 2.0 L BUN 22 H Creatinine 0.79 Est Cr Clr Drug Dosing 172.1 Est GFR ( Amer) 123.9 Est GFR (Non-Af Amer) 106.9 BUN/Creatinine Ratio 27.2 H Glucose 116 H POC Glucose 108 H Calcium 8.2 L Phosphorus 3.5 Magnesium 3.0 H 04/03/20 11:19 WBC RBC Hgb POC Hgb Hct POC Hct MCV MCH MCHC RDW Std Deviation RDW Coeff of Harmony Plt Count MPV Immature Gran % (Auto) Neut % (Auto) Lymph % (Auto) Bay % (Auto) Eos % (Auto) Baso % (Auto) Neut # (Auto) Lymph # (Auto) Bay # (Auto) Eos # (Auto) Baso # (Auto) Immature Gran # (Auto) Sample Site POC pH POC pCO2 POC pO2 POC HCO3 POC Total CO2 POC Base Excess ABG pH (Temp Correct) ABG pCO2 (Temp Corrct POC ABG pO2 at Pt Temp POC ABG O2 Sat Yordan Test O2 Delivery Device POC O2 Rate POC FiO2 Tidal Volume PEEP POC Sodium Sodium POC Potassium Potassium Chloride Carbon Dioxide Anion Gap BUN Creatinine Est Cr Clr Drug Dosing Est GFR ( Amer) Est GFR (Non-Af Amer) BUN/Creatinine Ratio Glucose POC Glucose 158 H Calcium Phosphorus Magnesium Medications Administered Current Inpatient Medications Acetaminophen (Acetaminophen 325 Mg Tab) 650 mg PO Q4H PRN PRN Reason: pain/fever Stop: 04/28/20 16:17 Last Admin: 04/03/20 01:59 Dose: 650 mg Documented by: Albuterol (Albut/Ipratrop 3mg/0.5mg Neb 3 Ml Vial) 3 ml NEB QIDR PRN PRN Reason: Shortness Of Breath Or Wheezing Stop: 04/28/20 16:17 Last Admin: 03/30/20 20:01 Dose: 3 ml Documented by: Albuterol (Albuterol 0.5% Neb Soln 2.5 Mg/0.5 Ml Vial) 2.5 mg NEB Q6R PRN PRN Reason: short of breath Stop: 04/30/20 06:59 Amlodipine Besylate (Amlodipine Besylate 5 Mg Tab) 10 mg PO QAM LAKSHMI Stop: 05/04/20 08:59 Enoxaparin Sodium (Enoxaparin Inj 40 Mg/0.4 Ml Syr) 40 mg SQ Q12 LAKSHMI Stop: 05/01/20 20:59 Last Admin: 04/03/20 08:29 Dose: 40 mg Documented by: Fentanyl Citrate (Fentanyl Bolus From Bag) 50 mcg IV Q60M PRN PRN Reason: Pain or Agitation Stop: 04/14/20 08:34 Last Admin: 04/02/20 06:45 Dose: 50 mcg Documented by: Heparin Sodium (Beef Lung) (Heparin 10 Unit/Ml 5 Ml Flush) 5 ml FLUSH PRN PRN PRN Reason: Flush Stop: 05/02/20 22:49 Ceftriaxone Sodium 2,000 mg/ (Dextrose) 70 mls @ 100 mls/hr IV Q24H LAKSHMI; Protocol Stop: 04/05/20 18:59 Last Infusion: 04/02/20 19:02 Dose: Infused Documented by: Lorazepam (Ativan) 0.5 mg in 1 mls @ 1 mls/min IV Q4H PRN PRN Reason: Agitation Stop: 04/30/20 05:15 Last Admin: 03/31/20 05:30 Dose: 1 mls/min Documented by: Fentanyl Citrate (Fentanyl Drip) 1,250 mcg in 250 mls @ 100 mls/hr IV .Q2H30M LAKSHMI; Protocol Stop: 04/14/20 08:44 Last Admin: 04/03/20 14:49 Dose: 500 mcg/hr, 100 mls/hr Documented by: Dexamethasone 6 mg/ Syringe 1.5 mls @ 1 mls/min IV DAILY [facility]; Protocol Stop: 04/07/20 23:59 Last Admin: 04/03/20 08:26 Dose: 1 mls/min Documented by: Azithromycin 500 mg/ Dextrose 255 mls @ 125 mls/hr IV DAILY [facility]; Protocol Stop: 04/04/20 11:03 Last Infusion: 04/03/20 11:14 Dose: Infused Documented by: Midazolam HCl (Versed) 125 mg in 250 mls @ 36 mls/hr IV .Q6H57M [facility]; Protocol Stop: 04/30/20 16:59 Last Admin: 04/03/20 14:49 Dose: 18 mg/hr, 36 mls/hr Documented by: Pantoprazole Sodium 40 mg/ (Syringe) 10 mls @ 5 mls/min IV DAILY@1200 LAKSHMI Stop: 05/01/20 11:59 Last Admin: 04/03/20 11:18 Dose: 5 mls/min Documented by: Cisatracurium Besylate 40 mg/ (Sodium Chloride) 100 mls @ 12.3 mls/hr IV .Q8H8M [facility]; Protocol Stop: 05/03/20 15:44 Last Admin: 04/03/20 15:47 Dose: 1 mcg/kg/min, 12.3 mls/hr Documented by: Melatonin (Melatonin 3 Mg Tab) 6 mg PO HS LAKSHMI Stop: 04/29/20 20:59 Last Admin: 04/02/20 20:44 Dose: Not Given Documented by: Midazolam HCl (Midazolam Bolus From Bag) 2 mg IV Q60M PRN PRN Reason: Sedation Stop: 04/30/20 16:59 Last Admin: 04/02/20 21:07 Dose: 2 mg Documented by: Multi-Ingredient Cream (Artificial Tears Op Oint 3.5 Gm Tube) 1 appln OP BID LAKSHMI Stop: 05/02/20 20:59 Last Admin: 04/03/20 08:30 Dose: 1 appln Documented by: Ondansetron HCl (Ondansetron Inj 2 Mg/Ml 2 Ml Vial) 4 mg IV Q6H PRN PRN Reason: Nausea Stop: 04/28/20 16:17 PG Care Time/CCT Total # of Minutes Spent Total Time Spent with Patient: Total time spent is greater than 50% in coordination of care (as documented) at patient's floor/unit and/or counseling patient: Coding Level of Care Code 25978 Subseq Hosp Care Lvl 3 Diagnoses Acute respiratory failure with hypoxia J96.01 Pneumonia due to 2019-nCoV U07.1; J12.89 CARSON (acute kidney injury) N17.9 Hypertension I10 Hypertension type: essential hypertension DVT prophylaxis Z29.9 (1) Hypertension Hypertension type: essential hypertension Qualified Code(s): I10 - Essential (primary) hypertension
[2020-04-03] MEDS: cefTRIAXone SODIUM 2,000 MG in DEXTROSE 5% 50 ML IV SCH (17:55)
[2020-04-03] MEDS: MELATONIN 3 MG TAB PO SCH (19:18)
[2020-04-04] MEDS: fentaNYL DRIP 1,250 MCG/250 ML BAG IV SCH ×5 (01:07→12:38)
[2020-04-04] MEDS: CISATRACURIUM BESYLATE 40 MG in 0.9 % SODIUM CHLORIDE 80 ML IV SCH ×4 (04:12→12:14)
[2020-04-04 04:18] LABS: iSTAT Art Bld Gas pCO2 Correct 56 mmHg (35-46); iSTAT Art Bld Gas pH Corrected 7.387 (7.35-7.45); iSTAT Arterial Blood Gas HCO3 34 meg/L (19-24); iSTAT Arterial Blood Gas pCO2 57 mmHg (35-46); iSTAT Arterial Blood Gas pH 7.39 (7.35-7.45); iSTAT Arterial Blood Gas pO2 281 mmHg (80-95); iSTAT Arterial Blood Gas pO2 C 281; iSTAT Carbon Dioxide 36 mmol/L (24-31); iSTAT FiO2 70 %; iSTAT Hematocrit 33 % (42-52); iSTAT Hemoglobin 11.2 g/dl (14.0-18.0); iSTAT Potassium 4.7 mmol/L (3.3-5.0); iSTAT Site Art Line; iSTAT Sodium 139 mmol/L (135-144)
[2020-04-04] MEDS: MIDAZOLAM HCL 125 MG/250 ML BAG IV SCH ×3 (04:56→19:25)
[2020-04-04 06:48] LABS: Basophils # (auto) 0.01 K/uL (0-0.2); Basophils % (auto) 0.2 %; Eosinophils # (auto) 0.01 K/uL (0-0.5); Eosinophils % (auto) 0.2 %; Hematocrit (blood only) 35.5 % (42-52); Hemoglobin 11.4 g/dL (14.0-18.0); Immature Granulocytes # (auto) 0.08 K/uL (0.00-0.02); Immature Granulocytes % (auto) 1.6 %; Lymphocytes # (auto) 1.19 K/uL (1.2-3.4); Lymphocytes % (auto) 24.4 %; Mean Corpuscular Hemoglobin 29.6 pg (25-34); Mean Corpuscular Hgb Conc 32.1 g/dL (32-36); Mean Corpuscular Volume 92.2 fL (80-100); Mean Platelet Volume 8.5 fL (7.4-10.4); Monocytes # (auto) 0.59 K/uL (0.11-0.59); Monocytes % (auto) 12.1 %; Neutrophils % (auto) 61.5 %; Platelet Count 290 K/uL (130-400); RDW Coefficient of Variation 14.1 % (11.5-14.5); RDW Standard Deviation 47.6 fL (36.4-46.3); Red Blood Count 3.85 M/uL (4.7-6.1); White Blood Count 4.88 K/uL (4.8-10.8)
[2020-04-04 07:16] LABS: Creatinine Clr Calc Pharmacy 190.4 ml/min; Est GFR (African American) 129.5; Est GFR (Non-African American) 111.7; Magnesium 2.5 mg/dl (1.8-2.4); Potassium 4.6 mmol/L (3.5-5.1)
[2020-04-04 07:26] LABS: Phosphorus 2.5 mg/dl (2.5-4.9)
[2020-04-04] MEDS: dexAMETHasone 6 MG in SYRINGE 0 ML IV SCH (08:03)
[2020-04-04] MEDS: AZITHROMYCIN 500 MG in DEXTROSE 5% 250 ML IV SCH (08:08)
--- NOTE | 2020-04-04 09:11 | XRay Report ---
XR chest 1V portable HISTORY: intubation COMPARISON: Chest 04/03/2020. FINDINGS: The endotracheal tube terminates 6 cm from the jagjit. Nasogastric tube terminates below th e diaphragm. The tip is not included on this study. There is a left subclavian central venous cathete r which terminates in the SVC. No pneumothorax. The heart is mildly enlarged. Bilateral airspace opac ities persist. This is similar to the prior study. Small right pleural effusion, unchanged. IMPRESSION: 1. The endotracheal tube terminates 6 cm from the jagjit. This could be advanced by 2 to 3 cm. 2. Bilateral airspace opacities and a small right pleural effusion persist. ACT 112: Negative or not required by law. Electronically signed by: Allan Orellana M.D. 04/04/2020 9:09 AM
[2020-04-04] MEDS: ARTIFICIAL TEARS OP OINT 3.5 GM TUBE OP SCH ×2 (09:44→20:07)
[2020-04-04] MEDS: ENOXAPARIN INJ 40 MG/0.4 ML SYR SQ SCH ×2 (09:44→20:06)
[2020-04-04] MEDS: amLODIPine BESYLATE 5 MG TAB PO SCH (09:45)
[2020-04-04] MEDS: PANTOprazole 40 MG in SYRINGE 0 ML IV SCH (12:11)
[2020-04-04] MEDS ORDERED: Nursing to Pharmacy Communication SCH ×2 (12:15→16:30)
[2020-04-04] MEDS ORDERED: FENTANYL IV SCH (13:30)
--- NOTE | 2020-04-04 15:07 | Hospitalist Progress Note ---
Date of Service April 04, 2020 Assessment & Plan (1) Acute respiratory failure with hypoxia: labored breathing, using accessory muscles, profound hypoxia requiring BIPAP on 03/31 intubated in the evening and place prone continue intermittent prone for improved oxygenation ARDS net settings with high PEEP and low FiO2 management per Dr. Renner CBC and BMP stable requiring high levels of Fentanyl and Versed for sedation, management per Dr. Renner (2) Pneumonia due to 2019-nCoV: Tested positive in the ED; symptoms x about 1 week at [facility]. No PE on CTA on 03/30 - Dexamethasone 6 mg PO daily x 10 days, day 6 - Remdesivir not shown to help in [facility] trial - Convalescent plasma of limited benefit in [place] trial, plus patient is 1 week from symptom onset. - Will treat with CAP abx given elevated WBC and procalcitonin. MRSA swab negative. Continue ceftriaxone & azithromycin for 5-7 days, today is day 6 required intubation on 03/31, intermittent proning to limit shunt physiology (3) CARSON (acute kidney injury): No know prior renal issues. - Cr was 1.7 on admission; likely due to pre-renal as he has not eaten or drank much in the last week. - IV fluids - CR remains less than 1 today, adequate UO (4) Hypertension: Reports hx of HTN, but on no meds for this hypertensive without appropriate sedation but this is limited (5) DVT prophylaxis: change to Lovenox now that renal function improved Admission and Anticipated Discharge Date Admission Date: March 29, 2020 Subjective patient proned and then turned requiring high doses of Versed and Fentanyl for sedation management per Dr. Renner Review of Systems Review of Systems: Unobtainable due to endotracheal tube Physical Exam Constitutional: well developed, + morbidly obese and + mechanically ventilated (prone) Neck: trachea midline and + thick neck; + abnormal visual inspection (scar from prior tracheostomy) Respiratory: symmetric chest movement Auscultation: no crackles, no rales, no rhonchi and no wheezes Cardiovascular: RRR, no murmur, no edema Gastrointestinal (Abdomen): normal bowel sounds, soft, nontender, no hepatosplenomegaly Musculoskeletal: no cyanosis or clubbing, extremities motor strength 5/5 Skin: no rashes, warm and dry Neurologic: PERRL, EOMI, accommodation nl, no face palsy, no dysarthria + obtunded; no focal motor deficits Psychiatric: Orientation: + not alert Lymphatic: no cervical or axillary lymphadenopathy Results & Data Results & Data ([facility]) Vital Signs (Past 12 Hours) Vital Signs Temp Pulse Pulse Resp BP BP Pulse Ox 04/04/20 13:00 37.0 C 54 L 91 04/04/20 12:57 37.0 C 60 130/71 94 04/04/20 12:27 37.0 C 87 153/100 H 70 L 04/04/20 12:00 37.0 C 61 89 L 04/04/20 11:56 37.0 C 62 127/69 88 L 04/04/20 11:26 36.9 C 63 134/70 89 L 04/04/20 11:02 68 16 86 L 04/04/20 11:00 36.8 C 80 87 L 04/04/20 10:56 36.8 C 60 133/66 90 04/04/20 10:26 36.8 C 63 140/70 91 04/04/20 10:00 36.8 C 69 90 04/04/20 09:56 36.8 C 70 165/86 H 90 04/04/20 09:26 36.9 C 73 139/113 H 04/04/20 09:00 37.0 C 60 100 04/04/20 08:56 36.9 C 58 L 124/73 100 04/04/20 08:15 58 L 16 100 04/04/20 08:00 36.9 C 55 L 100 04/04/20 07:56 36.9 C 55 L 135/81 100 04/04/20 07:38 54 L 16 128/73 100 04/04/20 07:00 36.9 C 56 L 100 04/04/20 06:56 36.9 C 58 L 134/77 100 04/04/20 06:26 36.9 C 56 L 132/74 100 04/04/20 05:26 36.9 C 59 L 16 133/76 100 04/04/20 04:56 36.9 C 56 L 136/75 100 04/04/20 04:26 36.9 C 58 L 149/87 H 98 04/04/20 03:51 57 L 16 91 04/04/20 03:26 36.9 C 57 L 132/73 90 Laboratory Results Laboratory Results - last 24 hr 04/03/20 04/03/20 04/04/20 18:05 23:33 04:01 WBC RBC Hgb POC Hgb 11.2 L Hct POC Hct 33 L MCV MCH MCHC RDW Std Deviation RDW Coeff of Harmony Plt Count MPV Immature Gran % (Auto) Neut % (Auto) Lymph % (Auto) [place] % (Auto) Eos % (Auto) Baso % (Auto) Neut # (Auto) Lymph # (Auto) [place] # (Auto) Eos # (Auto) Baso # (Auto) Immature Gran # (Auto) Sample Site Art Line POC pH 7.39 POC pCO2 57 H POC pO2 281 H POC HCO3 34 H POC Total CO2 36 H POC Base Excess 9.0 H ABG pH (Temp Correct) 7.387 ABG pCO2 (Temp Corrct 56 H POC ABG pO2 at Pt Temp 281 POC ABG O2 Sat 100.0 H Yordan Test NA O2 Delivery Device Ventilator POC O2 Rate 16 Minute Ventilation 7.2 POC FiO2 70 Tidal Volume 450 PEEP 20 POC Sodium 139 Sodium POC Potassium 4.7 Potassium Chloride Carbon Dioxide Anion Gap BUN Creatinine Est Cr Clr Drug Dosing Est GFR ( Amer) Est GFR (Non-Af Amer) BUN/Creatinine Ratio Glucose POC Glucose 137 H 136 H Calcium Phosphorus Magnesium 04/04/20 04/04/20 04/04/20 06:08 06:08 12:00 WBC 4.88 RBC 3.85 L Hgb 11.4 L POC Hgb Hct 35.5 L POC Hct MCV 92.2 MCH 29.6 MCHC 32.1 RDW Std Deviation 47.6 H RDW Coeff of Harmony 14.1 Plt Count 290 MPV 8.5 Immature Gran % (Auto) 1.6 Neut % (Auto) 61.5 Lymph % (Auto) 24.4 [place] % (Auto) 12.1 Eos % (Auto) 0.2 Baso % (Auto) 0.2 Neut # (Auto) 3.00 Lymph # (Auto) 1.19 L [place] # (Auto) 0.59 Eos # (Auto) 0.01 Baso # (Auto) 0.01 Immature Gran # (Auto) 0.08 H Sample Site POC pH POC pCO2 POC pO2 POC HCO3 POC Total CO2 POC Base Excess ABG pH (Temp Correct) ABG pCO2 (Temp Corrct POC ABG pO2 at Pt Temp POC ABG O2 Sat Yordan Test O2 Delivery Device POC O2 Rate Minute Ventilation POC FiO2 Tidal Volume PEEP POC Sodium Sodium 139 POC Potassium Potassium 4.6 Chloride 106 Carbon Dioxide 32 Anion Gap 1.0 L BUN 23 H Creatinine 0.71 Est Cr Clr Drug Dosing 190.4 Est GFR ( Amer) 129.5 Est GFR (Non-Af Amer) 111.7 BUN/Creatinine Ratio 33.0 H Glucose 115 H POC Glucose 136 H Calcium 8.0 L Phosphorus 2.5 D Magnesium 2.5 H Medications Administered Current Inpatient Medications Acetaminophen (Acetaminophen 325 Mg Tab) 650 mg PO Q4H PRN PRN Reason: pain/fever Stop: 04/28/20 16:17 Last Admin: 04/03/20 01:59 Dose: 650 mg Documented by: Albuterol (Albut/Ipratrop 3mg/0.5mg Neb 3 Ml Vial) 3 ml NEB QIDR PRN PRN Reason: Shortness Of Breath Or Wheezing Stop: 04/28/20 16:17 Last Admin: 03/30/20 20:01 Dose: 3 ml Documented by: Albuterol (Albuterol 0.5% Neb Soln 2.5 Mg/0.5 Ml Vial) 2.5 mg NEB Q6R PRN PRN Reason: short of breath Stop: 04/30/20 06:59 Amlodipine Besylate (Amlodipine Besylate 5 Mg Tab) 10 mg PO QAM LAKSHMI Stop: 05/04/20 08:59 Last Admin: 04/04/20 09:45 Dose: 10 mg Documented by: Enoxaparin Sodium (Enoxaparin Inj 40 Mg/0.4 Ml Syr) 40 mg SQ Q12 LAKSHMI Stop: 05/01/20 20:59 Last Admin: 04/04/20 09:44 Dose: 40 mg Documented by: Fentanyl Citrate (Fentanyl Bolus From Bag) 50 mcg IV Q60M PRN PRN Reason: Pain or Agitation Stop: 04/14/20 08:34 Last Admin: 04/02/20 06:45 Dose: 50 mcg Documented by: Heparin Sodium (Beef Lung) (Heparin 10 Unit/Ml 5 Ml Flush) 5 ml FLUSH PRN PRN PRN Reason: Flush Stop: 05/02/20 22:49 Ceftriaxone Sodium 2,000 mg/ (Dextrose) 70 mls @ 100 mls/hr IV Q24H [facility]; Protocol Stop: 04/05/20 18:59 Last Infusion: 04/03/20 18:43 Dose: Infused Documented by: Lorazepam (Ativan) 0.5 mg in 1 mls @ 1 mls/min IV Q4H PRN PRN Reason: Agitation Stop: 04/30/20 05:15 Last Admin: 03/31/20 05:30 Dose: 1 mls/min Documented by: Dexamethasone 6 mg/ Syringe 1.5 mls @ 1 mls/min IV DAILY [facility]; Protocol Stop: 04/07/20 23:59 Last Admin: 04/04/20 08:03 Dose: 1 mls/min Documented by: Midazolam HCl (Versed) 125 mg in 250 mls @ 36 mls/hr IV .Q6H57M [facility]; Protocol Stop: 04/30/20 16:59 Last Admin: 04/04/20 12:10 Dose: 18 mg/hr, 36 mls/hr Documented by: Pantoprazole Sodium 40 mg/ (Syringe) 10 mls @ 5 mls/min IV DAILY@1200 [facility] Stop: 05/01/20 11:59 Last Admin: 04/04/20 12:11 Dose: 5 mls/min Documented by: Cisatracurium Besylate 40 mg/ (Sodium Chloride) 100 mls @ 24.6 mls/hr IV .Q4H4M [facility]; Protocol Stop: 05/03/20 15:44 Last Titration: 04/04/20 14:43 Dose: Infused Documented by: Fentanyl Citrate (Fentanyl Citrate) 5,000 mcg in 250 mls @ 25 mls/hr IV .Q10H [facility]; Protocol Stop: 04/18/20 13:29 Melatonin (Melatonin 3 Mg Tab) 6 mg PO HS [facility] Stop: 04/29/20 20:59 Last Admin: 04/03/20 19:18 Dose: Not Given Documented by: Midazolam HCl (Midazolam Bolus From Bag) 2 mg IV Q60M PRN PRN Reason: Sedation Stop: 04/30/20 16:59 Last Admin: 04/02/20 21:07 Dose: 2 mg Documented by: Multi-Ingredient Cream (Artificial Tears Op Oint 3.5 Gm Tube) 1 appln OP BID [facility] Stop: 05/02/20 20:59 Last Admin: 04/04/20 09:44 Dose: 1 appln Documented by: Ondansetron HCl (Ondansetron Inj 2 Mg/Ml 2 Ml Vial) 4 mg IV Q6H PRN PRN Reason: Nausea Stop: 04/28/20 16:17 PG Care Time/CCT Total # of Minutes Spent Total Time Spent with Patient: Total time spent is greater than 50% in coor dination of care (as documented) at patient's floor/unit and/or counseling patient: Coding Level of Care Code 46421 Subseq Hosp Care Lvl 2 Diagnoses Acute respiratory failure with hypoxia J96.01 Pneumonia due to 2019-nCoV U07.1; J12.89 CARSON (acute kidney injury) N17.9 Hypertension I10 Hypertension type: essential hypertension DVT prophylaxis Z29.9 (1) Hypertension Hypertension type: essential hypertension Qualified Code(s): I10 - Essential (primary) hypertension
[2020-04-04] MEDS: fentaNYL citrate 2,500 MCG/250 ML BAG IV SCH ×2 (16:13→23:44)
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
[2020-04-04] MEDS: cefTRIAXone SODIUM 2,000 MG in DEXTROSE 5% 50 ML IV SCH (18:27)
[2020-04-05] MEDS: MIDAZOLAM HCL 125 MG/250 ML BAG IV SCH ×3 (02:35→16:57)
[2020-04-05] MEDS: CISATRACURIUM BESYLATE IV SOLN 2 MG/ML 10 ML VIAL IV PRN ×2 (02:45→20:51)
[2020-04-05 04:04] LABS: iSTAT Art Bld Gas pCO2 Correct 60 mmHg (35-46); iSTAT Art Bld Gas pH Corrected 7.366 (7.35-7.45); iSTAT Arterial Blood Gas HCO3 34 meg/L (19-24); iSTAT Arterial Blood Gas pCO2 60 mmHg (35-46); iSTAT Arterial Blood Gas pH 7.37 (7.35-7.45); iSTAT Arterial Blood Gas pO2 104 mmHg (80-95); iSTAT Arterial Blood Gas pO2 C 104; iSTAT Carbon Dioxide 36 mmol/L (24-31); iSTAT FiO2 50 %; iSTAT Hematocrit 35 % (42-52); iSTAT Hemoglobin 11.9 g/dl (14.0-18.0); iSTAT Potassium 4.8 mmol/L (3.3-5.0); iSTAT Site Art Line; iSTAT Sodium 138 mmol/L (135-144)
[2020-04-05 08:14] LABS: Hematocrit (blood only) 36.4 % (42-52); Hemoglobin 11.4 g/dL (14.0-18.0); Immature Granulocytes # (auto) 0.07 K/uL (0.00-0.02); Immature Granulocytes % (auto) 1.1 %; Lymphocytes # (auto) 1.31 K/uL (1.2-3.4); Lymphocytes % (auto) 21.1 %; Mean Corpuscular Hemoglobin 28.8 pg (25-34); Mean Corpuscular Hgb Conc 31.3 g/dL (32-36); Mean Corpuscular Volume 91.9 fL (80-100); Mean Platelet Volume 8.4 fL (7.4-10.4); Monocytes # (auto) 0.71 K/uL (0.11-0.59); Monocytes % (auto) 11.4 %; Neutrophils # (auto) 4.12 K/uL (1.4-6.5); Neutrophils % (auto) 66.4 %; Platelet Count 291 K/uL (130-400); RDW Coefficient of Variation 13.8 % (11.5-14.5); RDW Standard Deviation 46.6 fL (36.4-46.3); Red Blood Count 3.96 M/uL (4.7-6.1); White Blood Count 6.21 K/uL (4.8-10.8)
[2020-04-05 08:26] LABS: Albumin Level 2.5 gm/dl (3.4-5.0); BUN Creatinine Ratio 34.1 (10-20); Bilirubin Direct 0.2 mg/dl (0-0.2); Calcium 8.6 mg/dl (8.5-10.1); Creatinine Clr Calc Pharmacy 185.2 ml/min; Est GFR (Non-African American) 110.5; Magnesium 2.5 mg/dl (1.8-2.4); Potassium 4.7 mmol/L (3.5-5.1)
[2020-04-05 08:30] LABS: Bilirubin,Total 0.7 mg/dl (0.2-1); Phosphorus 2.7 mg/dl (2.5-4.9); Total Protein 6.7 gm/dl (6.4-8.2)
[2020-04-05] MEDS: dexAMETHasone 6 MG in SYRINGE 0 ML IV SCH (08:59)
[2020-04-05] MEDS: ARTIFICIAL TEARS OP OINT 3.5 GM TUBE OP SCH ×2 (09:00→21:48)
[2020-04-05] MEDS ORDERED: NOVASOURCE RENAL 2.0 CAL 1000ML BAG OG SCH (09:00)
[2020-04-05] MEDS: ENOXAPARIN INJ 40 MG/0.4 ML SYR SQ SCH ×2 (09:00→21:48)
[2020-04-05] MEDS: amLODIPine BESYLATE 5 MG TAB PO SCH (09:01)
--- NOTE | 2020-04-05 09:21 | XRay Report ---
XR chest 1V portable HISTORY: Pneumonia. Follow-up. intubation COMPARISON: Chest 04/04/2020. FINDINGS: No pneumothorax. Nasogastric tube terminates below the diaphragm. The tip is not included o n this study. Left subclavian central venous catheter terminates at the SVC. The endotracheal tube te rminates 3.7 cm from the jagjit. Bilateral airspace opacities consistent with a pneumonia. This has s lightly progressed. Suspect small bilateral pleural effusions. The heart is stable in size. IMPRESSION: 1. Slight progression of the bilateral airspace opacities consistent with a pneumonia. 2. Satisfactory support line placement. ACT 112: Negative or not required by law. Electronically signed by: Allan Orellana M.D. 04/05/2020 9:19 AM
[2020-04-05] MEDS: fentaNYL citrate 2,500 MCG/250 ML BAG IV SCH ×2 (09:36→19:45)
[2020-04-05] MEDS: PANTOprazole 40 MG in SYRINGE 0 ML IV SCH (12:27)
--- NOTE | 2020-04-05 12:37 | Hospitalist Progress Note ---
Date of Service April 05, 2020 Assessment & Plan (1) Pneumonia due to 2019-nCoV: Tested positive in the ED; symptoms x about 1 week at [facility]. No PE on CTA on 03/30 (reviewed myself). - Dexamethasone 6 mg PO daily x 10 days - Remdesivir & convalescent plasma held for late in course. - Intubated - ICU managing vent. - DuoNebs PRN - CAP abx per ICU (2) CARSON (acute kidney injury): No know prior renal issues. - Cr was 1.7 on admission; likely due to pre-renal as he has not eaten or drank much in the last week. - IV fluids - Follow Cr -> Improved to 0.7 today. (3) Hypertension: Reports hx of HTN, but on no meds for this. BP today is 145/85. - Amlodipine (4) DVT prophylaxis: Lovenox 40 mg SQ Q12h Admission and Anticipated Discharge Date Admission Date: March 29, 2020 Subjective Intubated and sedated Review of Systems Review of Systems: Unobtainable due to endotracheal tube Physical Exam Constitutional: WD/WN, vitals as above Eyes: EOM intact bilaterally; no conjunctival abnormality ENMT: external ear and nose normal, oropharynx normal Neck: trachea midline, no thyromegaly normal visual inspection Respiratory: + respiratory distress (Intubated), + labored breathing and + tachypneic Auscultation: + diminished lung sounds and + crackles; no wheezes Cardiovascular: RRR, no murmur, no edema Gastrointestinal (Abdomen): Inspection/Auscultation: abdomen normal to inspection; abdomen not distended Musculoskeletal: no cyanosis or clubbing, extremities motor strength 5/5 Skin: no rashes, warm and dry Neurologic: moves all extremities and awake Psychiatric: Orientation: alert, oriented to person and cooperative Results & Data Results & Data ([facility]) Vital Signs (Past 12 Hours) Vital Signs Temp Pulse Resp BP Pulse Ox 04/05/20 12:00 37.4 C 69 97 04/05/20 11:57 37.4 C 69 146/74 H 96 04/05/20 11:27 37.4 C 68 147/69 H 97 04/05/20 11:00 37.4 C 66 96 04/05/20 10:57 37.3 C 67 137/69 96 04/05/20 10:27 37.3 C 67 141/75 H 97 04/05/20 10:00 37.4 C 65 97 04/05/20 09:57 37.4 C 71 141/75 H 97 04/05/20 09:27 37.4 C 68 141/70 H 97 04/05/20 09:00 37.4 C 66 98 04/05/20 08:57 37.4 C 64 144/74 H 98 04/05/20 08:27 37.3 C 66 159/81 H 98 04/05/20 08:00 37.3 C 64 98 04/05/20 07:57 37.3 C 65 142/73 H 98 04/05/20 07:31 61 16 100 04/05/20 07:27 37.4 C 61 136/66 99 04/05/20 07:00 37.3 C 63 99 04/05/20 06:27 37.3 C 67 16 142/70 H 99 04/05/20 05:27 37.3 C 65 16 140/74 98 04/05/20 04:27 37.3 C 72 16 152/82 H 97 04/05/20 03:43 72 16 98 04/05/20 03:27 37.1 C 65 16 162/86 H 99 04/05/20 02:27 37.1 C 66 180/101 H 98 04/05/20 01:27 37.1 C 64 160/87 H 99 PG Care Time/CCT Total # of Minutes Spent Total Time Spent with Patient: Total time spent is greater than 50% in coordination of care (as documented) at patient's floor/unit and/or counseling patient: Coding Level of Care Code 91892 Subseq Hosp Care Lvl 3 Diagnoses Pneumonia due to 2019-nCoV U07.1; J12.89 CARSON (acute kidney injury) N17.9 Hypertension I10 Hypertension type: essential hypertension DVT prophylaxis Z29.9 (1) Hypertension Hypertension type: essential hypertension Qualified Code(s): I10 - Essential (primary) hypertension
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
[2020-04-05] MEDS ORDERED: MINERAL OIL 30 ML UDC PO ONE (15:00)
--- NOTE | 2020-04-05 21:00 | Communication Note ---
Date of Service: April 05, 2020 Patient was evaluated at change of shift. The patient has been responding well to pronation therapy. Thankfully, the patient has been able to be weaned down to an FiO2 of 50%. PEEP still remains high at 14. Discussion was had a change of shift and it was agreed the patient would be pronated overnight again to help facilitate ongoing recruitment with hopes of being able to wean down PEEP and FiO2. Prior to performing pronation procedure, appropriate staff was assembled. Respiratory therapy x2 are present in the room. The patient received as needed dose of Nimbex on order. After appropriate response to medications, a team of 6 performed proning procedure without complication. The patient's FiO2 which had been turned to 100% prior to procedure was again returned to 40% FiO2. Conversation had with nursing staff as well as respiratory therapy. Goals to wean FiO2 and PEEP as tolerated by patient throughout the night. No immediate complications were met. I have personally spent 35 minutes of critical care time in the direct management of this patient. This is a life/limb threatening event. This includes time spent evaluating patient, direct bedside care, chart review, placing orders, interpretation of diagnostic studies, discussion with consultants, patient, and family members, as well as other required patient management a ctivities. This time is exclusive of all separately billable procedures, and teaching time and separate from and in addition to any other critical care service time. Coding Level of Care Code Critical Care [place] addt'l 30 min
[2020-04-06] MEDS: MIDAZOLAM HCL 125 MG/250 ML BAG IV SCH ×3 (00:35→14:55)
[2020-04-06] MEDS: MIDAZOLAM BOLUS FROM BAG IV PRN (03:46)
[2020-04-06 03:49] LABS: iSTAT Art Bld Gas pCO2 Correct 52 mmHg (35-46); iSTAT Art Bld Gas pH Corrected 7.387 (7.35-7.45); iSTAT Arterial Blood Gas HCO3 31 meg/L (19-24); iSTAT Arterial Blood Gas pCO2 52 mmHg (35-46); iSTAT Arterial Blood Gas pH 7.39 (7.35-7.45); iSTAT Arterial Blood Gas pO2 58 mmHg (80-95); iSTAT Arterial Blood Gas pO2 C 59; iSTAT Carbon Dioxide 33 mmol/L (24-31); iSTAT FiO2 30 %; iSTAT Hematocrit 36 % (42-52); iSTAT Hemoglobin 12.2 g/dl (14.0-18.0); iSTAT Potassium 4.7 mmol/L (3.3-5.0); iSTAT Site Art Line; iSTAT Sodium 137 mmol/L (135-144)
[2020-04-06] MEDS: fentaNYL citrate 2,500 MCG/250 ML BAG IV SCH ×6 (05:09→23:06)
[2020-04-06 06:25] LABS: Base Excess ABG 3.7 mEq/L (-9-1.8); HCO3 ABG 29 mmol/L (19-24); PCO2 ABG 47 mmHg (35-46); PO2 ABG 76 mmHg (80-95); pH ABG 7.41 (7.35-7.45)
[2020-04-06 06:26] LABS: Allen Test Pos (Pos)
[2020-04-06 08:46] LABS: Fibrinogen 530 mg/dl (184-400); INR 1.1 (0.9-1.1); Prothrombin Time 11.6 Seconds (9.0-12.0)
[2020-04-06 08:47] LABS: Albumin Level 2.5 gm/dl (3.4-5.0); BUN Creatinine Ratio 30.6 (10-20); Calcium 8.7 mg/dl (8.5-10.1); Creatinine Clr Calc Pharmacy 175.5 ml/min; Est GFR (African American) 125.2; Est GFR (Non-African American) 108.1; Magnesium 2.3 mg/dl (1.8-2.4); Potassium 4.3 mmol/L (3.5-5.1)
[2020-04-06 08:50] LABS: Bilirubin Direct 0.2 mg/dl (0-0.2); Bilirubin,Total 0.6 mg/dl (0.2-1); Phosphorus 2.6 mg/dl (2.5-4.9); Total Protein 6.8 gm/dl (6.4-8.2)
[2020-04-06 08:50] LABS: Hematocrit (blood only) 36.7 % (42-52); Hemoglobin 11.6 g/dL (14.0-18.0); Immature Granulocytes # (auto) 0.07 K/uL (0.00-0.02); Immature Granulocytes % (auto) 1.2 %; Lymphocytes # (auto) 1.66 K/uL (1.2-3.4); Lymphocytes % (auto) 27.9 %; Mean Corpuscular Hemoglobin 28.6 pg (25-34); Mean Corpuscular Hgb Conc 31.6 g/dL (32-36); Mean Corpuscular Volume 90.6 fL (80-100); Mean Platelet Volume 8.5 fL (7.4-10.4); Monocytes # (auto) 0.65 K/uL (0.11-0.59); Monocytes % (auto) 10.9 %; Neutrophils # (auto) 3.56 K/uL (1.4-6.5); Platelet Count 258 K/uL (130-400); RDW Coefficient of Variation 13.9 % (11.5-14.5); RDW Standard Deviation 46.4 fL (36.4-46.3); Red Blood Count 4.05 M/uL (4.7-6.1); White Blood Count 5.94 K/uL (4.8-10.8)
[2020-04-06] MEDS: ENOXAPARIN INJ 40 MG/0.4 ML SYR SQ SCH ×2 (09:13→20:25)
[2020-04-06] MEDS: dexAMETHasone 6 MG in SYRINGE 0 ML IV SCH (09:14)
[2020-04-06] MEDS: amLODIPine BESYLATE 5 MG TAB PO SCH (09:14)
[2020-04-06] MEDS: ARTIFICIAL TEARS OP OINT 3.5 GM TUBE OP SCH ×2 (09:14→20:25)
[2020-04-06] MEDS ORDERED: PEPTAMEN INTENSE VHP 1.0 CAL 1,000 ML BAG OG SCH (12:30)
--- NOTE | 2020-04-06 12:41 | Hospitalist Progress Note ---
Date of Service April 06, 2020 Assessment & Plan (1) Pneumonia due to 2019-nCoV: Tested positive in the ED; symptoms x about 1 week at [facility]. No PE on CTA on 03/30 (reviewed myself). - Dexamethasone 6 mg PO daily x 10 days - Remdesivir & convalescent plasma held for late in course. - Intubated - ICU managing vent. - DuoNebs PRN (2) CARSON (acute kidney injury): No know prior renal issues. - Cr was 1.7 on admission; likely due to pre-renal as he has not eaten or drank much in the last week. - IV fluids per ICU - Follow Cr -> Improved to 0.7. (3) Hypertension: Reports hx of HTN, but on no meds for this. BP today is 165/85. - Amlodipine 10 mg PO daily (4) DVT prophylaxis: Lovenox 40 mg SQ Q12h Admission and Anticipated Discharge Date Admission Date: March 29, 2020 Subjective Intubated and sedated Physical Exam Constitutional: WD/WN, vitals as above Eyes: EOM intact bilaterally; no conjunctival abnormality ENMT: external ear and nose normal, oropharynx normal Neck: trachea midline, no thyromegaly normal visual inspection Respiratory: + respiratory distress (Intubated), + labored breathing and + tachypneic Auscultation: + diminished lung sounds and + crackles; no wheezes Cardiovascular: RRR, no murmur, no edema Gastrointestinal (Abdomen): Inspection/Auscultation: abdomen normal to inspection; abdomen not distended Musculoskeletal: no cyanosis or clubbing, extremities motor strength 5/5 Skin: no rashes, warm and dry Neurologic: moves all extremities; + not awake Psychiatric: Orientation: + not alert and + not oriented to person Results & Data Results & Data ([facility]) Vital Signs (Past 12 Hours) Vital Signs Temp Pulse Resp BP Pulse Ox 04/06/20 12:05 87 25 H 90 04/06/20 11:04 37.6 C H 79 166/84 H 95 04/06/20 09:58 37.5 C 84 169/93 H 94 04/06/20 09:44 76 04/06/20 08:58 37.4 C 72 153/76 H 92 04/06/20 08:28 37.5 C 80 171/84 H 91 04/06/20 08:21 76 17 91 04/06/20 08:00 76 04/06/20 07:58 37.5 C 69 183/98 H 99 04/06/20 07:28 37.4 C 65 153/84 H 95 04/06/20 06:58 37.4 C 69 148/79 H 95 04/06/20 06:28 37.4 C 72 166/89 H 92 04/06/20 06:00 37.4 C 75 94 04/06/20 05:58 37.3 C 65 146/77 H 95 04/06/20 05:28 37.3 C 68 140/76 96 04/06/20 05:00 37.3 C 72 94 04/06/20 04:58 37.3 C 72 153/76 H 94 04/06/20 04:28 37.2 C 71 166/85 H 92 04/06/20 04:00 37.3 C 70 92 04/06/20 03:58 37.2 C 73 167/88 H 91 04/06/20 03:40 78 28 H 92 04/06/20 03:28 37.1 C 74 151/91 H 94 04/06/20 03:00 37.0 C 68 95 04/06/20 02:59 76 04/06/20 02:58 37.0 C 70 152/80 H 95 04/06/20 02:29 37.1 C 78 94 04/06/20 02:28 37.1 C 76 167/93 H 94 04/06/20 02:00 37.1 C 72 94 04/06/20 01:58 37.1 C 67 156/81 H 94 04/06/20 01:28 37.1 C 72 167/89 H 95 04/06/20 01:00 37.1 C 69 95 04/06/20 00:58 37.1 C 72 153/85 H 95 PG Care Time/CCT Total # of Minutes Spent Total Time Spent with Patient: Total time spent is greater than 50% in coordination of care (as documented) at patient's floor/unit and/or counseling patient: Coding Level of Care Code 71110 Subseq Hosp Care Lvl 3 Diagnoses Pneumonia due to 2019-nCoV U07.1; J12.89 CARSON (acute kidney injury) N17.9 Hypertension I10 Hypertension type: essential hypertension DVT prophylaxis Z29.9 (1) Hypertension Hypertension type: essential hypertension Qualified Code(s): I10 - Essential (primary) hypertension
[2020-04-06] MEDS: PANTOprazole 40 MG in SYRINGE 0 ML IV SCH (13:26)
[2020-04-06] MEDS ORDERED: PROPOFOL BOLUS FROM BAG IV PRN (14:25)
[2020-04-06] MEDS ORDERED: STAT IV Infusion **Titration per Protocol STA (14:25)
--- NOTE | 2020-04-06 14:27 | Critical Care Progress Note ---
Date of Service April 06, 2020 Assessment & Plan (1) Acute respiratory distress syndrome (ARDS) due to 2019 novel coronavirus: Reason Critically Ill: 49-year-old male with acute respiratory distress syndrome secondary to COVID-19 pneumonia 24-hour events: The patient was proned last evening. His gas exchange has remained relatively good. Chest x-ray demonstrates diffuse pulmonary inf iltrates with fluid overload. Creatinine is stable. He does have increasing agitation requiring higher doses of sedatives. PLAN: Neuro: Continue fentanyl and Versed. We will add propofol and Precedex to assist with sedation. Start oral methadone and clonazepam to assist with sedation needs. Do not think he needs additional neuromuscular blockade. Resp: Mechanical ventilation day 7. His gas exchange is better and we should be able to wean his PEEP significantly as long as we can keep him sedated. We will try and target PaO2 greater than 55 with oxygen saturations greater than 88%. Com pliance is adequate. No need to proning at this point time and no indication for additional neuromuscular blockade. He is completing dexamethasone per protocol. Hopefully with diuresis his respiratory mechanics will prove to allow for sedation breaks and potential extubation. He does have bilateral pleural effusions and we may consider thoracentesis depending on response to diuretics and kidney function CV: Continue amlodipine. We will see if the addition of Precedex offers of benefit with control of his blood pressure. Fluids/Renal: Baseline creatinine is stable. He appears fluid overloaded. Aggressive diuresis with 40 mg of Lasix IV every 8 hours. Follow kidney function. ID: Viral pneumonia: White count is normal and the patient is afebrile. We will check sputum cultures but hold antibiotics for now. GI/Nutrition: Discussed with dietary: We will place on continuous tube feeds as I do not think he needs additional proning Heme: DVT prophylaxis: Lovenox twice daily Endocrine: ICU hyperglycemia protocol Vascular access: Peripheral IVs Code Status: Full Disposition: ICU Patient remains critically ill with significant possibility of clinical deterioration. A total of 49 minutes in critical care time was spent in evaluation management of this patient including discussion with ICU staff and on multidisciplinary rounds. (2) Acute respiratory failure with hypoxia: (3) Hypoxia: (4) Pneumonia due to 2019-nCoV: Admission and Anticipated Discharge Date Admission Date: March 29, 2020 Subjective Intubated and sedated Review of Systems Review of Systems: Unobtainable due to endotracheal tube Physical Exam Constitutional: WD/WN, vitals as above Eyes: EOM intact bilaterally; no conjunctival abnormality ENMT: external ear and nose normal, oropharynx normal Neck: trachea midline, no thyromegaly normal visual inspection Respiratory: + respiratory distress (Intubated), + labored breathing and + tachypneic Auscultation: + diminished lung sounds and + crackles; no wheezes Cardiovascular: RRR, no murmur, no edema Gastrointestinal (Abdomen): Inspection/Auscultation: abdomen normal to inspection; abdomen not distended Musculoskeletal: no cyanosis or clubbing, extremities motor strength 5/5 Skin: no rashes, warm and dry Neurologic: moves all extremities; + not awake Psychiatric: Orientation: + not alert and + not oriented to person Results & Data Results & Data ([facility]) Vital Signs (Past 12 Hours) Vital Signs Temp Pulse Resp BP Pulse Ox 04/06/20 13:00 76 92 04/06/20 12:05 87 25 H 90 04/06/20 12:00 88 95 04/06/20 11:05 37.6 C H 76 96 04/06/20 11:04 37.6 C H 79 166/84 H 95 04/06/20 09:58 37.5 C 84 169/93 H 94 04/06/20 09:44 76 04/06/20 08:58 37.4 C 72 153/76 H 92 04/06/20 08:28 37.5 C 80 171/84 H 91 04/06/20 08:21 76 17 91 04/06/20 08:00 76 04/06/20 07:58 37.5 C 69 183/98 H 99 04/06/20 07:28 37.4 C 65 153/84 H 95 04/06/20 06:58 37.4 C 69 148/79 H 95 04/06/20 06:28 37.4 C 72 166/89 H 92 04/06/20 06:00 37.4 C 75 94 04/06/20 05:58 37.3 C 65 146/77 H 95 04/06/20 05:28 37.3 C 68 140/76 96 04/06/20 05:00 37.3 C 72 94 04/06/20 04:58 37.3 C 72 153/76 H 94 04/06/20 04:28 37.2 C 71 166/85 H 92 04/06/20 04:00 37.3 C 70 92 04/06/20 03:58 37.2 C 73 167/88 H 91 04/06/20 03:40 78 28 H 92 04/06/20 03:28 37.1 C 74 151/91 H 94 04/06/20 03:00 37.0 C 68 95 04/06/20 02:59 76 04/06/20 02:58 37.0 C 70 152/80 H 95 04/06/20 02:29 37.1 C 78 94 04/06/20 02:28 37.1 C 76 167/93 H 94 Laboratory Results 04/06/20 08:00 04/06/20 08:03 Diagnostic Findings Chest x-ray independently reviewed from 04/05/2020. There are bilateral layering pleural effusions present with diffuse pulmonary opacities. Endotrac heal tube and subclavian line are in good position. Coding Level of Care Code Critical Care 1st 30-74 mins Diagnoses Acute respiratory distress syndrome (ARDS) due to 2019 novel coronavirus U07.1; J80 Acute respiratory failure with hypoxia J96.01 Hypoxia R09.02 Pneumonia due to 2019-nCoV U07.1; J12.89 Time Spent (min) 49
[2020-04-06] MEDS: propofoL 1,000 MG/100 ML VIAL IV SCH ×2 (16:08→22:14)
[2020-04-06] MEDS: METHADONE HCL 10 MG TAB PO SCH (16:09)
[2020-04-06] MEDS: DEXMEDETOMIDINE HCL 200 MCG in SODIUM CHLORIDE 0.9% 48 ML IV SCH ×2 (16:09→21:08)
[2020-04-06] MEDS: clonazePAM 1 MG TAB PO SCH (20:24)
[2020-04-06] MEDS: FUROSEMIDE 40 MG in SYRINGE 0 ML IV SCH (20:46)
[2020-04-07] MEDS: fentaNYL citrate 2,500 MCG/250 ML BAG IV SCH ×2 (03:36→08:37)
[2020-04-07] MEDS: DEXMEDETOMIDINE HCL 200 MCG in SODIUM CHLORIDE 0.9% 48 ML IV SCH ×3 (04:41→22:03)
[2020-04-07 04:59] LABS: Base Excess ABG 4.7 mEq/L (-9-1.8); HCO3 ABG 29 mmol/L (19-24); Oxygen Saturation ABG 87.8 % (90-95); PCO2 ABG 41 mmHg (35-46); PO2 ABG 54 mmHg (80-95); pH ABG 7.47 (7.35-7.45)
[2020-04-07 05:03] LABS: Allen Test POS (Pos)
[2020-04-07] MEDS: FUROSEMIDE 40 MG in SYRINGE 0 ML IV SCH ×3 (05:06→20:52)
[2020-04-07 05:33] LABS: BUN Creatinine Ratio 26.2 (10-20); Calcium 9.2 mg/dl (8.5-10.1); Creatinine Clr Calc Pharmacy 153.6 ml/min; Est GFR (African American) 118.6; Est GFR (Non-African American) 102.3; Potassium 4.3 mmol/L (3.5-5.1)
[2020-04-07] MEDS: propofoL 1,000 MG/100 ML VIAL IV SCH ×4 (05:58→15:21)
--- NOTE | 2020-04-07 07:50 | XRay Report ---
XR chest 1V portable HISTORY: resp failure COMPARISON: Chest 04/05/2020. FINDINGS: There are low lung volumes. No pneumothorax. Small right pleural effusion. The heart is mil dly enlarged. Volume loss within the right hemithorax with progressive right basilar density. This ra ises the possibility of right lower lobe collapse/atelectasis. Endotracheal tube terminates 3 cm from the jagjit. Left subclavian central venous catheter terminating at the SVC. Nasogastric tube termina betty below the diaphragm. The tip is not included on this study. Hazy bilateral airspace opacities hav e significantly improved in the interval. IMPRESSION: 1. Satisfactory support line placement. 2. Volume loss within the right hemithorax with progressive right basilar density. This raises the po ssibility of right lower lobe collapse. Follow-up bronchoscopy is recommended to exclude the possibil ity of mucous plugging. 3. Interval improvement in the bilateral airspace opacities. 4. Small right pleural effusion. 5. These findings were called/faxed to the referring physician following dictation. ACT 112: Negative or not required by law. Electronically signed by: Allan Orellana M.D. 04/07/2020 7:48 AM
[2020-04-07] MEDS: dexAMETHasone 6 MG in SYRINGE 0 ML IV SCH (08:46)
[2020-04-07] MEDS: clonazePAM 1 MG TAB PO SCH ×2 (08:46→20:51)
[2020-04-07] MEDS: MULTI VIT W/MINERALS LIQUID 15 ML UDP NG SCH (08:46)
[2020-04-07] MEDS: METHADONE HCL 10 MG TAB PO SCH (08:46)
[2020-04-07] MEDS: ENOXAPARIN INJ 40 MG/0.4 ML SYR SQ SCH ×2 (08:47→20:52)
[2020-04-07] MEDS: ARTIFICIAL TEARS OP OINT 3.5 GM TUBE OP SCH ×2 (08:47→20:53)
[2020-04-07] MEDS: amLODIPine BESYLATE 5 MG TAB PO SCH (08:47)
--- NOTE | 2020-04-07 11:09 | Critical Care Progress Note ---
Date of Service April 07, 2020 Assessment & Plan (1) Acute respiratory distress syndrome (ARDS) due to 2019 novel coronavirus: Reason Critically Ill: 49-year-old male with acute respiratory distress syndrome secondary to COVID-19 pneumonia 24-hour events: The patient was transitioned from fentanyl and Versed last night to propofol and Precedex. He is doing markedly better on these medications and we have been able to discontinue the fentanyl and the Versed. His hemodynamics have improved. He was placed on diuretics and had brisk response to Lasix with stabilized hemodynamics and stable renal function he remains in the supine position. His vent settings have decreased significantly with improved compliance. PLAN: Neuro: Continue propofol and Precedex. Will discontinue fentanyl and Versed but continue methadone and clonazepam due to potential withdrawal issues. After discussion with nursing and respiratory therapist, the patient became very agitated previously with any respiratory adjuncts including BiPAP or high flow. We will start low-dose Zyprexa to see if we can improve this and plan on extubating on Precedex. We will wean propofol today given improved respiratory mechanics to allow for potential SBT Resp: Mechanical ventilation day 8. Plateau pressures are down to 14 with improvement in compliance. PEEP is down to 6 with an FiO2 of 35%. If we are able to keep him calm with sedation break, will consider an SBT. We will plan on extubating on Precedex. He does have some atelectasis of the left lower lobe so discussed with respiratory therapy aggressive pulmonary suctioning. If fails to clear, may consider bronchoscopy however given the risk, will try and avoid aerosol generating procedures at this point time CV: Patient now with progressive hypertension. Continue amlodipine and add metoprolol. Fluids/Renal: Baseline creatinine is stable. Good response to Lasix. We will continue Lasix at 40 3 times daily and follow kidney function as well as electrolytes ID: Viral pneumonia: White count is normal and the patient is afebrile. We will check sputum cultures but hold antibiotics for now. GI/Nutrition: We will hold tube feeds in anticipation of sedation break and SBT. Heme: DVT prophylaxis: Lovenox twice daily Endocrine: ICU hyperglycemia protocol Vascular access: Peripheral IVs Code Status: Full Disposition: ICU Patient remains critically ill with significant possibility of clinical deterioration. A total of 37 minutes in critical care time was spent in vira luation management of this patient including discussion with ICU staff and on multidisciplinary rounds. (2) Acute respiratory failure with hypoxia: (3) Hypoxia: (4) Pneumonia due to 2019-nCoV: Admission and Anticipated Discharge Date Admission Date: March 29, 2020 Subjective intubated and sedated Review of Systems Review of Systems: Unobtainable due to endotracheal tube Physical Exam Constitutional: well developed and + mechanically ventilated sedated Eyes: PERRL, conjunctivae normal, anicteric sclerae Neck: trachea midline, no thyromegaly Respiratory: Auscultation: + rales; no wheezes coarse breath sounds bilaterally Cardiovascular: RRR, no murmur, no edema Gastrointestinal (Abdomen): normal bowel sounds, soft, nontender, no hepatosplenomegaly Musculoskeletal: Extremities: extremities normal to inspection Skin: no rashes, warm and dry Neurologic: intubated and sedated Lymphatic: no cervical lymphadenopathy Results & Data Results & Data ([facility]) Vital Signs (Past 12 Hours) Vital Signs Pulse Resp BP Pulse Ox 04/07/20 09:10 85 04/07/20 09:01 74 91 04/07/20 08:59 75 161/95 H 91 04/07/20 08:00 71 04/07/20 07:50 71 25 H 89 L 04/07/20 07:30 88 181/98 H 88 L 04/07/20 06:30 84 166/94 H 93 04/07/20 05:30 65 155/99 H 89 L 04/07/20 05:00 68 88 L 04/07/20 04:30 68 166/106 H 88 L 04/07/20 04:00 68 88 L 04/07/20 03:30 79 165/91 H 90 04/07/20 03:00 63 90 04/07/20 02:30 68 162/105 H 91 04/07/20 02:20 68 22 90 04/07/20 02:00 62 90 04/07/20 01:30 62 147/90 H 90 04/07/20 01:00 72 89 L 04/07/20 00:30 67 144/86 H 89 L 04/07/20 00:00 68 89 L 04/06/20 23:36 72 26 H 91 04/06/20 23:30 72 148/84 H 90 Laboratory Results 04/06/20 08:00 04/07/20 04:19 03/30/20 03/31/2004/06/20 21:59 00:00 06:00 ABG pH Cancelled 7.43 7.41 ABG pCO2 Cancelled 41 47 H ABG pO2 Cancelled 56 L 76 L ABG HCO3 Cancelled 27 H 29 H ABG O2 Saturation Cancelled 87.0 L 95.0 ABG Base Excess Cancelled 2.1 H 3.7 H 04/07/20 04:19 ABG pH 7.47 H ABG pCO2 41 ABG pO2 54 L ABG HCO3 29 H ABG O2 Saturation 87.8 L ABG Base Excess 4.7 H I/O: Negative almost 5 L last 24 hours Diagnostic Findings Chest x-ray from today was independently reviewed and compared to prior films. Tubes and support lines are in good position. There is volume loss in the right lower lobe consistent with right lower lobe collapse. Lungs appear better aerated compared to prior films. Coding Level of Care Code Critical Care 1st 30-74 mins Diagnoses Acute respiratory distress syndrome (ARDS) due to 2019 novel coronavirus U07.1; J80 Acute respiratory failure with hypoxia J96.01 Hypoxia R09.02 Pneumonia due to 2019-nCoV U07.1; J12.89
[2020-04-07] MEDS ORDERED: METOPROLOL TARTRATE 25 MG TAB PO SCH (11:30)
[2020-04-07] MEDS: OLANZapine 5 MG TABLET PO SCH ×2 (12:16→20:54)
[2020-04-07] MEDS: PANTOprazole 40 MG in SYRINGE 0 ML IV SCH (12:16)
[2020-04-07] MEDS ORDERED: hydrALAZINE HCL 20 MG/ML VIAL IV PRN (13:45)
--- NOTE | 2020-04-07 17:53 | Hospitalist Progress Note ---
Date of Service April 07, 2020 Assessment & Plan (1) Pneumonia due to 2019-nCoV: Tested positive in the ED; symptoms x about 1 week at [facility]. No PE on CTA on 03/30. - Dexamethasone 6 mg IV daily x 10 days - Remdesivir & convalescent plasma held for late in course. - Intubated - ICU managing vent. - DuoNebs PRN - More comfortable on propofol & fentanyl. (2) CARSON (acute kidney injury): No know prior renal issues. - Cr was 1.7 on admission; likely due to pre-renal as he has not eaten or drank much in the last week. - IV fluids per ICU - Follow Cr -> Improved to baseline. (3) Hypertension: Reports hx of HTN, but on no meds for this. BP today is 125/85. - Amlodipine 10 mg PO daily. Propofol probably helping some. (4) DVT prophylaxis: Lovenox 40 mg SQ Q12h Admission and Anticipated Discharge Date Admission Date: March 29, 2020 Subjective Intubated Review of Systems Review of Systems: Unobtainable due to endotracheal tube Physical Exam Constitutional: WD/WN, vitals as above + acute distress Eyes: EOM intact bilaterally; no conjunctival abnormality ENMT: external ear and nose normal, oropharynx normal Neck: trachea midline, no thyromegaly normal visual inspection Respiratory: + respiratory distress (Intubated), + labored breathing and + tachypneic Auscultation: + diminished lung sounds and + crackles; no wheezes Cardiovascular: RRR, no murmur, no edema Gastrointestinal (Abdomen): Inspection/Auscultation: abdomen normal to inspection; abdomen not distended Musculoskeletal: no cyanosis or clubbing, extremities motor strength 5/5 Skin: no rashes, warm and dry Neurologic: moves all extremities; + not awake Psychiatric: Orientation: + not alert and + not oriented to person Results & Data Results & Data ([facility]) Vital Signs (Past 12 Hours) Vital Signs Pulse Resp BP Pulse Ox 04/07/20 16:00 67 122/67 04/07/20 15:59 66 130/74 95 04/07/20 14:59 67 122/67 94 04/07/20 14:15 65 25 H 95 04/07/20 13:59 66 130/77 94 04/07/20 13:45 66 95 04/07/20 13:30 64 94 04/07/20 13:15 69 94 04/07/20 12:59 72 135/75 94 04/07/20 12:00 85 04/07/20 11:59 74 134/76 92 04/07/20 11:29 85 25 H 90 04/07/20 10:59 76 135/73 91 04/07/20 09:59 73 137/76 92 04/07/20 09:10 85 04/07/20 09:01 74 91 04/07/20 08:59 75 161/95 H 91 04/07/20 08:00 71 04/07/20 07:50 71 25 H 89 L 04/07/20 07:30 88 181/98 H 88 L 04/07/20 06:30 84 166/94 H 93 PG Care Time/CCT Total # of Minutes Spent Total Time Spent with Patient: Total time spent is greater than 50% in coordination of care (as documented) at patient's floor/unit and/or counseling patient: Coding Level of Care Code 67555 Subseq Hosp Care Lvl 3 Diagnoses Pneumonia due to 2019-nCoV U07.1; J12.89 CARSON (acute kidney injury) N17.9 Hypertension I10 Hypertension type: essential hypertension DVT prophylaxis Z29.9 (1) Hypertension Hypertension type: essential hypertension Qualified Code(s): I10 - Essential (primary) hypertension
[2020-04-08] MEDS: fentaNYL DRIP 1,250 MCG/250 ML BAG IV SCH (00:24)
[2020-04-08] MEDS: propofoL 1,000 MG/100 ML VIAL IV SCH ×2 (01:30→04:17)
[2020-04-08] MEDS: FUROSEMIDE 40 MG in SYRINGE 0 ML IV SCH ×2 (04:19→20:47)
[2020-04-08 04:36] LABS: iSTAT Arterial Blood Gas HCO3 30 meg/L (19-24); iSTAT Arterial Blood Gas pCO2 45 mmHg (35-46); iSTAT Arterial Blood Gas pH 7.44 (7.35-7.45); iSTAT Arterial Blood Gas pO2 63 mmHg (80-95); iSTAT Carbon Dioxide 32 mmol/L (24-31); iSTAT FiO2 30 %; iSTAT Site Art Line
[2020-04-08] MEDS: DEXMEDETOMIDINE HCL 200 MCG in SODIUM CHLORIDE 0.9% 48 ML IV SCH ×4 (04:38→19:22)
[2020-04-08 05:52] LABS: Basophils # (auto) 0.01 K/uL (0-0.2); Basophils % (auto) 0.2 %; Hematocrit (blood only) 40.6 % (42-52); Hemoglobin 13.7 g/dL (14.0-18.0); Immature Granulocytes # (auto) 0.03 K/uL (0.00-0.02); Immature Granulocytes % (auto) 0.5 %; Lymphocytes # (auto) 2.12 K/uL (1.2-3.4); Lymphocytes % (auto) 34.3 %; Mean Corpuscular Hgb Conc 33.7 g/dL (32-36); Mean Corpuscular Volume 88.8 fL (80-100); Mean Platelet Volume 8.5 fL (7.4-10.4); Monocytes # (auto) 0.73 K/uL (0.11-0.59); Monocytes % (auto) 11.8 %; Neutrophils # (auto) 3.29 K/uL (1.4-6.5); Neutrophils % (auto) 53.2 %; Platelet Count 260 K/uL (130-400); RDW Coefficient of Variation 13.7 % (11.5-14.5); RDW Standard Deviation 44.6 fL (36.4-46.3); Red Blood Count 4.57 M/uL (4.7-6.1); White Blood Count 6.18 K/uL (4.8-10.8)
[2020-04-08 06:07] LABS: Base Excess ABG 5.9 mEq/L (-9-1.8); HCO3 ABG 30 mmol/L (19-24); Oxygen Saturation ABG 91.3 % (90-95); PCO2 ABG 42 mmHg (35-46); PO2 ABG 63 mmHg (80-95); pH ABG 7.47 (7.35-7.45)
[2020-04-08 06:08] LABS: Allen Test A-LINE (Pos)
[2020-04-08 06:20] LABS: Albumin Level 2.9 gm/dl (3.4-5.0); BUN Creatinine Ratio 28.2 (10-20); Bilirubin Direct 0.2 mg/dl (0-0.2); Calcium 9.2 mg/dl (8.5-10.1); Creatinine Clr Calc Pharmacy 135.7 ml/min; Est GFR (African American) 104.7; Est GFR (Non-African American) 90.3; Magnesium 2.1 mg/dl (1.8-2.4); Potassium 3.9 mmol/L (3.5-5.1)
[2020-04-08 06:28] LABS: Bilirubin,Total 0.7 mg/dl (0.2-1); Phosphorus 3.9 mg/dl (2.5-4.9); Total Protein 7.9 gm/dl (6.4-8.2)
[2020-04-08] MEDS ORDERED: POTASSIUM CHLORIDE 20 MEQ/15 ML UDC NG SCH (08:00)
[2020-04-08] MEDS: clonazePAM 1 MG TAB PO SCH (08:19)
[2020-04-08] MEDS: METHADONE HCL 10 MG TAB PO SCH (08:19)
[2020-04-08] MEDS: MULTI VIT W/MINERALS LIQUID 15 ML UDP NG SCH (08:22)
[2020-04-08] MEDS: ARTIFICIAL TEARS OP OINT 3.5 GM TUBE OP SCH ×2 (08:24→20:47)
[2020-04-08] MEDS: ENOXAPARIN INJ 40 MG/0.4 ML SYR SQ SCH ×2 (08:24→20:46)
[2020-04-08] MEDS: amLODIPine BESYLATE 5 MG TAB PO SCH (08:25)
[2020-04-08] MEDS: OLANZapine 5 MG TABLET PO SCH (08:25)
--- NOTE | 2020-04-08 09:04 | Critical Care Progress Note ---
Date of Service April 08, 2020 Assessment & Plan (1) Acute respiratory distress syndrome (ARDS) due to 2019 novel coronavirus: Reason Critically Ill: 49-year-old male with acute respiratory distress syndrome secondary to COVID-19 pneumonia 24-hour events: Patient did well over the last 24 hours. He continues to diurese appropriately. He had significant improvement in his oxygenation. This morning he was on a spontaneous breathing trial and breathing well at 8/5 and FiO2 30%. His sedation issues have resolved on Precedex, Zyprexa, methadone, and clonazepam. He did develop transient bradycardia yesterday which necessitated discontinuation of the metoprolol. He was placed on hydralazine for blood pressure control. PLAN: Neuro: Much better on current regiment. Propofol will be discontinued and the patient will be extubated. Will extubate on Precedex and wean this as tolerated. He r eceived Zyprexa, methadone, and clonazepam this morning. These can also likely be tapered off over time depending on the patient's clinical course. He appears neurologically intact. Resp: Mechanical ventilation day 9. SBT reassuring and the patient will be extubated to nasal cannula. Will need aggressive pulmonary toilet including flutter valve and incentive spirometry. Discussed with nursing getting patient out of bed to chair as tolerated. Follow-up chest x-ray in the next 24 hours. CV: Continue Norvasc and hydralazine remained stable once he is taking oral agents. Fluids/Renal: Creatinine remains stable. Continue electrolyte replacement protocols. He is diuresing well. Will decrease Lasix down to twice daily dosing. Can likely discontinue Mcneal catheter once diuresis completed ID: Viral pneumonia: White count is normal and the patient is afebrile. Sputum culture no growth to date and holding antibiotics GI/Nutrition: We will need speech therapy evaluation for swallow in the next 24 hours. Transaminases mildly elevated today and they will continue to be trended. Heme: DVT prophylaxis: Lovenox twice daily Endocrine: ICU hyperglycemia protocol Vascular access: Peripheral IVs Code Status: Full Disposition: We will observe in the ICU today and if he does well he can likely transfer to the floor under the care of the hospitalist tomorrow. Patient was discussed extensively with the bedside respiratory therapist and ICU nurse as well as on multidisciplinary rounds. Total of 40 minutes was spent coordinating care for this patient. (2) Acute respiratory failure with hypoxia: (3) Hypoxia: (4) Pneumonia due to 2019-nCoV: Admission and Anticipated Discharge Date Admission Date: March 29, 2020 Subjective Patient is intubated and sedated but responsive and following commands on propofol and Precedex Review of Systems Review of Systems: Unobtainable due to endotracheal tube Physical Exam Constitutional: well developed and + mechanically ventilated Eyes: PERRL, conjunctivae normal, anicteric sclerae Neck: trachea midline, no thyromegaly Respiratory: Auscultation: + rales; no wheezes Cardiovascular: RRR, no murmur, no edema Gastrointestinal (Abdomen): normal bowel sounds, soft, nontender, no hepatosplenomegaly Musculoskeletal: Extremities: extremities normal to inspection Skin: no rashes, warm and dry Lymphatic: no cervical lymphadenopathy Results & Data Results & Data ([facility]) Vital Signs (Past 12 Hours) Vital Signs Temp Pulse Pulse Resp BP BP Pulse Ox 04/08/20 07:58 37.0 C 87 27 H 137/79 91 04/08/20 07:47 90 24 91 04/08/20 06:00 36.8 C 66 20 140/77 92 04/08/20 05:00 66 140/77 92 04/08/20 04:17 61 20 92 04/08/20 04:01 66 92 04/08/20 04:00 36.8 C 65 155/78 H 92 04/08/20 03:01 64 94 04/08/20 02:59 60 121/69 93 04/08/20 02:01 63 93 04/08/20 01:59 57 L 119/66 93 04/08/20 01:01 62 93 04/08/20 00:59 62 127/73 93 04/08/20 00:23 57 L 20 93 04/08/20 00:01 61 94 04/07/20 23:59 36.7 C 62 123/64 94 04/07/20 23:01 62 94 04/07/20 22:59 62 122/71 94 04/07/20 21:59 62 127/73 93 04/07/20 20:59 60 132/72 93 Laboratory Results 04/08/20 05:38 04/08/20 05:38 AB.4 //63/30 Diagnostic Findings Follow-up chest x-ray pending Coding Level of Care Code 31901 Subseq Hosp Care Lvl 3 Diagnoses Acute respiratory distress syndrome (ARDS) due to 2019 novel coronavirus U07.1; J80 Acute respiratory failure with hypoxia J96.01 Hypoxia R09.02 Pneumonia due to 2019-nCoV U07.1; J12.89
--- NOTE | 2020-04-08 09:40 | XRay Report ---
XR chest 1V portable CLINICAL HISTORY: Respiratory failure COMPARISON STUDY: 04/07/2020 FINDINGS: There is a left subclavian central venous catheter unchanged in position. The endotracheal tube and nasogastric tubes have been removed. The heart is enlarged. There are persistent bilateral p ulmonary airspace opacities.[ IMPRESSION: 1. Persistent bilateral pulmonary airspace opacities 2. Interval removal of the nasogastric tube and endotracheal tube. ACT 112: Negative or not required by law. Electronically signed by: Juan J Chaparro M.D. 04/08/2020 9:39 AM
[2020-04-08] MEDS: PANTOprazole 40 MG in SYRINGE 0 ML IV SCH (11:17)
[2020-04-08] MEDS ORDERED: POTASSIUM CHLORIDE / WTR 20 MEQ/100 ML PLCT IV ONE (12:00)
--- NOTE | 2020-04-08 14:13 | Hospitalist Progress Note ---
Date of Service April 08, 2020 Assessment & Plan (1) Pneumonia due to 2019-nCoV: Tested positive in the ED; symptoms x about 1 week at [facility]. No PE on CTA on 03/30. - Dexamethasone 6 mg IV daily x 10 days (Finished 04/07). - Remdesivir & convalescent plasma held for late in course. - Extubated on 04/08; now on oxymask. - DuoNebs PRN - Stable today after extubation. (2) CARSON (acute kidney injury): No know prior renal issues. - Cr was 1.7 on admission; likely due to pre-renal as he has not eaten or drank much in the last week. - IV fluids per ICU - Follow Cr -> Improved to baseline. (3) Hypertension: Reports hx of HTN, but on no meds for this. BP today is 125/75. - Amlodipine 10 mg PO daily. (4) DVT prophylaxis: Lovenox 40 mg SQ Q12h Admission and Anticipated Discharge Date Admission Date: March 29, 2020 Subjective Extubated. Tired. Physical Exam Constitutional: WD/WN, vitals as above + acute distress Eyes: EOM intact bilaterally; no conjunctival abnormality ENMT: external ear and nose normal, oropharynx normal Neck: trachea midline, no thyromegaly normal visual inspection Respiratory: + labored breathing and + tachypneic Auscultation: + diminished lung sounds and + crackles; no wheezes Cardiovascular: RRR, no murmur, no edema Gastrointestinal (Abdomen): Inspection/Auscultation: abdomen normal to inspection; abdomen not distended Musculoskeletal: no cyanosis or clubbing, extremities motor strength 5/5 Skin: no rashes, warm and dry Neurologic: moves all extremities and awake Psychiatric: Orientation: alert and oriented to person Results & Data Results & Data ([facility]) Vital Signs (Past 12 Hours) Vital Signs Temp Pulse Pulse Resp BP BP Pulse Ox 04/08/20 13:00 85 21 122/73 89 L 04/08/20 12:00 84 23 114/67 92 04/08/20 11:12 36.8 C 78 20 94 04/08/20 11:00 79 21 128/75 94 04/08/20 10:00 80 22 116/75 94 04/08/20 09:01 82 87 L 04/08/20 09:00 73 126/72 83 L 04/08/20 08:00 85 137/79 91 04/08/20 07:58 37.0 C 87 27 H 137/79 91 04/08/20 07:47 90 24 91 04/08/20 07:00 94 H 151/90 H 90 04/08/20 06:00 36.8 C 66 20 140/77 92 04/08/20 05:00 66 140/77 92 04/08/20 04:17 61 20 92 04/08/20 04:01 66 92 04/08/20 04:00 36.8 C 65 155/78 H 92 04/08/20 03:01 64 94 04/08/20 02:59 60 121/69 93 PG Care Time/CCT Total # of Minutes Spent Total Time Spent with Patient: Total time spent is greater than 50% in coordination of care (as documented) at patient's floor/unit and/or counseling patient: Coding Level of Care Code 30585 Subseq Hosp Care Lvl 2 Diagnoses Pneumonia due to 2019-nCoV U07.1; J12.89 CARSON (acute kidney injury) N17.9 Hypertension I10 Hypertension type: essential hypertension DVT prophylaxis Z29.9 (1) Hypertension Hypertension type: essential hypertension Qualified Code(s): I10 - Essential (primary) hypertension
[2020-04-08 15:41] LABS: iSTAT Arterial Blood Gas HCO3 32 meg/L (19-24); iSTAT Arterial Blood Gas pCO2 44 mmHg (35-46); iSTAT Arterial Blood Gas pH 7.47 (7.35-7.45); iSTAT Arterial Blood Gas pO2 57 mmHg (80-95); iSTAT Carbon Dioxide 33 mmol/L (24-31); iSTAT Site Art Line
[2020-04-08] MEDS: ICU ELECTROLYTE REPLACEMENT PROTOCOL SCH (19:23)
[2020-04-09 05:57] LABS: Basophils # (auto) 0.03 K/uL (0-0.2); Basophils % (auto) 0.3 %; Hematocrit (blood only) 44.3 % (42-52); Hemoglobin 14.5 g/dL (14.0-18.0); Immature Granulocytes # (auto) 0.03 K/uL (0.00-0.02); Immature Granulocytes % (auto) 0.3 %; Lymphocytes # (auto) 2.28 K/uL (1.2-3.4); Lymphocytes % (auto) 25.9 %; Mean Corpuscular Hemoglobin 29.5 pg (25-34); Mean Corpuscular Hgb Conc 32.7 g/dL (32-36); Mean Corpuscular Volume 90.2 fL (80-100); Mean Platelet Volume 8.7 fL (7.4-10.4); Monocytes # (auto) 0.94 K/uL (0.11-0.59); Monocytes % (auto) 10.7 %; Neutrophils # (auto) 5.52 K/uL (1.4-6.5); Neutrophils % (auto) 62.8 %; Platelet Count 256 K/uL (130-400); RDW Coefficient of Variation 14.3 % (11.5-14.5); RDW Standard Deviation 46.9 fL (36.4-46.3); Red Blood Count 4.91 M/uL (4.7-6.1)
[2020-04-09 06:37] LABS: Albumin Level 3.1 gm/dl (3.4-5.0); BUN Creatinine Ratio 26.1 (10-20); Calcium 9.4 mg/dl (8.5-10.1); Creatinine Clr Calc Pharmacy 126.7 ml/min; Est GFR (African American) 96.4; Est GFR (Non-African American) 83.2; Potassium 3.7 mmol/L (3.5-5.1)
[2020-04-09 06:39] LABS: Albumin Globulin Ratio 0.6 (0.9-2); Bilirubin,Total 1.1 mg/dl (0.2-1); Globulin 5.2 gm/dl (2.5-4.0); Total Protein 8.3 gm/dl (6.4-8.2)
[2020-04-09] MEDS: ICU ELECTROLYTE REPLACEMENT PROTOCOL SCH (06:49)
[2020-04-09] MEDS ORDERED: Nursing to Pharmacy Communication SCH (07:15)
[2020-04-09] MEDS ORDERED: POTASSIUM CHLORIDE / WTR 10 MEQ/100 ML PLCT IV SCH (07:15)
[2020-04-09] MEDS: POTASSIUM CHLORIDE / WTR 20 MEQ/100 ML PLCT IV SCH ×2 (08:05→10:13)
[2020-04-09] MEDS: FUROSEMIDE 40 MG in SYRINGE 0 ML IV SCH (08:05)
--- NOTE | 2020-04-09 08:06 | Critical Care Progress Note ---
Date of Service April 09, 2020 Assessment & Plan (1) Acute respiratory distress syndrome (ARDS) due to 2019 novel coronavirus: Reason Critically Ill: 49-year-old male with acute respiratory distress syndrome secondary to COVID-19 pneumonia 24-hour events: Patient was extubated yesterday evening. He is done well. He is weaned down to 2 L nasal cannula. He initially had some delirium but the Precedex has been weaned off. He is not agitated. He remains tachycardic but hemodynamically stable. PLAN: Neuro: Neuro status clearing. We will discontinue methadone, Zyprexa, and clonazepam and follow his sensorium. Needs to get out of bed and move. Resp: Patient was extubated 04/08/2020 and appears to be doing well. Continue pulmonary toilet with incentive spirometry. Out of bed to chair as tolerated. Wean oxygen as tolerated to maintain saturations at or above 88% CV: Continue Norvasc and hydralazine. Transition to oral agents once swallow evaluation completed Fluids/Renal: Creatinine remains stable. Continue electrolyte replacement protocols. He is diuresing well. Will decrease Lasix down to daily dosing. Can transition to oral when cleared by speech. Mcneal out. ID: Viral pneumonia: White count is normal and the patient is afebrile. Sputum culture no growth to date and holding antibiotics GI/Nutrition: Speech therapy evaluation pending. Diet per speech. Transaminases increased and will need to be trended. ? FUNK vs viral effect. Heme: DVT prophylaxis: Lovenox twice daily Endocrine: ICU hyperglycemia protocol Increase activity. OOB as tolerated. PT and OT evaluations. Vascular access: Peripheral IVs Code Status: Full Disposition: OK to transition to floor status. Discussed with hospitalists who will assume care. We will sign off. Call if we can be of additional assi stance. (2) Acute respiratory failure with hypoxia: (3) Hypoxia: (4) Pneumonia due to 2019-nCoV: Admission and Anticipated Discharge Date Admission Date: March 29, 2020 Subjective Patient seen and examined. Discussed with bedside critical care nurse. He is doing better this morning. His mentation is improved. He is hungry and wanting to eat and curious about when he can get back to the assisted. He is coughing and expectorating some phlegm. He is not reporting any chest pain or palpitations. He does not feel short of breath and his oxygen has been weaned down to 2 L nasal cannula. He is pending speech therapy, physical therapy, and occupational therapy evaluations. Review of Systems Review of Systems: All systems reviewed & are unremarkable except as noted in HPI & below Physical Exam Constitutional: well developed; no acute distress Eyes: PERRL, conjunctivae normal, anicteric sclerae Neck: trachea midline, no thyromegaly Respiratory: Auscultation: + rales; no wheezes Cardiovascular: RRR, no murmur, no edema Gastrointestinal (Abdomen): normal bowel sounds, soft, nontender, no hepatosplenomegaly Musculoskeletal: Extremities: extremities normal to inspection Skin: no rashes, warm and dry Lymphatic: no cervical lymphadenopathy Results & Data Results & Data ([facility]) Vital Signs (Past 12 Hours) Vital Signs Temp Pulse Resp BP Pulse Ox 04/09/20 07:00 37.3 C 110 H 26 H 140/86 94 04/09/20 06:00 123 H 26 H 96 04/09/20 05:01 113 H 24 96 04/09/20 05:00 36.7 C 114 H 26 H 135/83 95 04/09/20 04:01 115 H 25 H 95 04/09/20 04:00 112 H 26 H 150/80 H 95 04/09/20 03:01 106 H 23 95 04/09/20 03:00 110 H 25 H 130/80 92 04/09/20 02:00 114 H 23 131/80 97 04/09/20 01:01 106 H 23 94 04/09/20 01:00 107 H 24 128/84 96 04/09/20 00:01 111 H 9 L 90 04/09/20 00:00 37 C 115 H 24 160/98 H 87 L 04/08/20 23:01 107 H 23 98 04/08/20 23:00 97 H 22 132/72 97 04/08/20 22:01 100 H 22 93 04/08/20 22:00 103 H 23 142/81 H 93 04/08/20 21:01 98 H 26 H 91 04/08/20 21:00 95 H 16 147/80 H 95 Laboratory Results 04/09/20 05:12 04/09/20 05:12 Diagnostic Findings No new imaging Coding Level of Care Code 24846 Subseq Hosp Care Lvl 3 Diagnoses Acute respiratory distress syndrome (ARDS) due to 2019 novel coronavirus U07.1; J80 Acute respiratory failure with hypoxia J96.01 Hypoxia R09.02 Pneumonia due to 2019-nCoV U07.1; J12.89
[2020-04-09] MEDS: ENOXAPARIN INJ 40 MG/0.4 ML SYR SQ SCH ×2 (08:07→19:24)
[2020-04-09] MEDS: amLODIPine BESYLATE 5 MG TAB PO SCH (08:08)
[2020-04-09] MEDS: MULTI VIT W/MINERALS LIQUID 15 ML UDP NG SCH (08:08)
[2020-04-09] MEDS: ARTIFICIAL TEARS OP OINT 3.5 GM TUBE OP SCH ×2 (08:08→19:24)
--- NOTE | 2020-04-09 08:45 | XRay Report ---
XR chest 1V portable CLINICAL HISTORY: Respiratory failure COMPARISON STUDY: 04/08/2020 FINDINGS: The heart remains enlarged. There are bilateral pulmonary airspace opacities consistent wit h a multifocal pneumonia. A trace left pleural effusion cannot be excluded.[ IMPRESSION: Persistent bilateral pulmonary airspace opacities, similar to the prior study. ACT 112: Negative or not required by law. Electronically signed by: Juan J Chaparro M.D. 04/09/2020 8:44 AM
[2020-04-09] MEDS ORDERED: clonazePAM 1 MG TAB PO SCH (09:00)
[2020-04-09] MEDS ORDERED: FUROSEMIDE 40 MG in SYRINGE 0 ML IV SCH (09:00)
[2020-04-09] MEDS ORDERED: METHADONE HCL 5 MG TAB PO SCH (09:00)
[2020-04-09] MEDS ORDERED: OLANZapine 5 MG TABLET PO SCH (09:00)
[2020-04-09] MEDS: METOPROLOL SUCC 25MG EXT REL TAB PO SCH (10:45)
--- NOTE | 2020-04-09 17:57 | Hospitalist Progress Note ---
Date of Service April 09, 2020 Assessment & Plan (1) Pneumonia due to 2019-nCoV: Tested positive in the ED; symptoms x about 1 week at [facility]. No PE on CTA on 03/30. - Dexamethasone 6 mg IV daily x 10 days (Finished 04/07). - Remdesivir & convalescent plasma held for late in course. - Extubated on 04/08; now on Oxymask. - DuoNebs PRN - Stable today after extubation, though RR is a bit faster today. (2) CARSON (acute kidney injury): No know prior renal issues. - Cr was 1.7 on admission; likely due to pre-renal as he has not eaten or drank much in the last week. - Follow Cr -> Improved to baseline. (3) Hypertension: Reports hx of HTN, but on no meds for this. BP today is 140/85. - Amlodipine 10 mg PO daily. - Added beta-leesa for tachycardia. (4) DVT prophylaxis: Lovenox 40 mg SQ Q12h Admission and Anticipated Discharge Date Admission Date: March 29, 2020 Subjective Seen this morning. Doing well. Asking for food and asking to go home. Reports no fevers/chills, chest pain, shortness of breath, abdominal pain, nausea, or vomiting. Physical Exam Constitutional: WD/WN, vitals as above + acute distress Eyes: EOM intact bilaterally; no conjunctival abnormality ENMT: external ear and nose normal, oropharynx normal Neck: trachea midline, no thyromegaly normal visual inspection Respiratory: + labored breathing and + tachypneic Auscultation: + diminished lung sounds and + crackles; no wheezes Cardiovascular: RRR, no murmur, no edema Gastrointestinal (Abdomen): Inspection/Auscultation: abdomen normal to inspection; abdomen not distended Musculoskeletal: no cyanosis or clubbing, extremities motor strength 5/5 Skin: no rashes, warm and dry Neurologic: moves all extremities and awake Psychiatric: Orientation: alert and oriented to person Results & Data Results & Data ([facility]) Vital Signs (Past 12 Hours) Vital Signs Temp Pulse Pulse Resp BP BP Pulse Ox 04/09/20 17:01 128 H 04/09/20 15:23 127 H 31 H 140/86 90 04/09/20 14:05 128 H 140/86 91 04/09/20 11:00 123 H 24 131/78 92 04/09/20 09:00 120 H 24 135/69 90 04/09/20 08:42 95 04/09/20 08:00 113 H 26 H 139/79 90 04/09/20 07:00 37.3 C 110 H 26 H 140/86 94 04/09/20 06:00 123 H 26 H 96 PG Care Time/CCT Total # of Minutes Spent Total Time Spent with Patient: Total time spent is greater than 50% in coordination of care (as documented) at patient's floor/unit and/or counseling patient: Coding Level of Care Code 83609 Subseq Hosp Care Lvl 3 Diagnoses Pneumonia due to 2019-nCoV U07.1; J12.89 CARSON (acute kidney injury) N17.9 Hypertension I10 Hypertension type: essential hypertension DVT prophylaxis Z29.9 (1) Hypertension Hypertension type: essential hypertension Qualified Code(s): I10 - Essential (primary) hypertension
[2020-04-09 18:38] LABS: Base Excess VBG 4.3 mEq/L; Oxygen Saturation VBG 69.6 %; pH VBG 7.44 (7.36-7.41)
--- NOTE | 2020-04-09 21:11 | Ultrasound Report ---
ULTRASOUND BILATERAL LOWER EXTREMITY VENOUS CLINICAL HISTORY: Respiratory failure. Lower extremity edema. Clinical concern for deep venous thromb osis. COMPARISON STUDY: No priors. TECHNIQUE: Real-time, grayscale, and color Doppler sonography of the deep veins of the right and left lower extremity was performed from the inguinal crease to the calf. Compression and augmentation wer e utilized. FINDINGS: There is no sonographic evidence of deep venous thrombosis identified in the right or left lower extremity. The common femoral, superficial femoral, and popliteal veins are patent and normally compressible bilaterally. The greater saphenous vein and the profunda femoris vein at the junction w ith the common femoral vein are clear in both legs. The visualized calf veins are patent bilaterally. IMPRESSION: There is no sonographic evidence of deep venous thrombosis identified in the right or lef t lower extremity. ACT 112: Negative or not required by law. Electronically signed by: Ean Crews M.D. 04/09/2020 9:09 PM
--- NOTE | 2020-04-10 08:16 | XRay Report ---
XR chest 1V portable HISTORY: Respiratory failure. COMPARISON: Chest 04/09/2020. FINDINGS: Bilateral airspace opacities have improved. This most pronounced within the left lower lobe . No pneumothorax. No pleural effusions. The heart remains mildly enlarged. IMPRESSION: Interval improvement of bilateral airspace opacities most pronounced within the left lower lobe. ACT 112: Negative or not required by law. Electronically signed by: lAlan Orellana M.D. 04/10/2020 8:14 AM
[2020-04-10] MEDS: ARTIFICIAL TEARS OP OINT 3.5 GM TUBE OP SCH ×2 (08:31→20:20)
[2020-04-10] MEDS: ENOXAPARIN INJ 40 MG/0.4 ML SYR SQ SCH (08:32)
[2020-04-10] MEDS: METOPROLOL SUCC 25MG EXT REL TAB PO SCH (08:33)
[2020-04-10] MEDS: amLODIPine BESYLATE 5 MG TAB PO SCH (08:33)
[2020-04-10 08:39] LABS: Basophils # (auto) 0.02 K/uL (0-0.2); Basophils % (auto) 0.2 %; Hematocrit (blood only) 47.4 % (42-52); Hemoglobin 15.5 g/dL (14.0-18.0); Immature Granulocytes # (auto) 0.02 K/uL (0.00-0.02); Immature Granulocytes % (auto) 0.2 %; Lymphocytes # (auto) 1.89 K/uL (1.2-3.4); Mean Corpuscular Hemoglobin 29.6 pg (25-34); Mean Corpuscular Hgb Conc 32.7 g/dL (32-36); Mean Corpuscular Volume 90.6 fL (80-100); Mean Platelet Volume 8.9 fL (7.4-10.4); Monocytes # (auto) 1.19 K/uL (0.11-0.59); Neutrophils # (auto) 6.81 K/uL (1.4-6.5); Neutrophils % (auto) 68.6 %; Platelet Count 199 K/uL (130-400); RDW Coefficient of Variation 14.2 % (11.5-14.5); RDW Standard Deviation 46.8 fL (36.4-46.3); Red Blood Count 5.23 M/uL (4.7-6.1); White Blood Count 9.93 K/uL (4.8-10.8)
[2020-04-10 09:04] LABS: BUN Creatinine Ratio 23.5 (10-20); Calcium 9.7 mg/dl (8.5-10.1); Creatinine Clr Calc Pharmacy 110.3 ml/min; Est GFR (African American) 86.4; Est GFR (Non-African American) 74.6; Magnesium 2.3 mg/dl (1.8-2.4); Potassium 3.9 mmol/L (3.5-5.1)
[2020-04-10 09:07] LABS: Albumin Globulin Ratio 0.5 (0.9-2); Bilirubin,Total 1.3 mg/dl (0.2-1); Globulin 5.5 gm/dl (2.5-4.0); Total Protein 8.5 gm/dl (6.4-8.2)
--- NOTE | 2020-04-10 13:50 | Hospitalist Progress Note ---
Date of Service April 10, 2020 Assessment & Plan (1) Pneumonia due to 2019-nCoV: Tested positive in the ED; symptoms x about 1 week at [facility]. No PE on CTA on 03/30. - Dexamethasone 6 mg IV daily x 10 days (Finished 04/07). - Remdesivir & convalescent plasma held for late in course. - Extubated on 04/08; now on Oxymask. - DuoNebs PRN - Improving today. Was up with PT. Eating now after [employer] evaluation. Wants to go back to institution to file legal paperwork for his parole. If HR comes down and he can move without desaturating too deeply, I think he can be discharged. (2) CARSON (acute kidney injury): No know prior renal issues. - Cr was 1.7 on admission; likely due to pre-renal as he has not eaten or drank much in the last week. - Follow Cr -> Improved to baseline by 04/08, though trending up a bit now that he's off IV fluids. (3) Hypertension: Reports hx of HTN, but on no meds for this. BP today is 140/85. - Amlodipine 10 mg PO daily. - Added Toprol XL 25 mg PO daily on 04/09 for tachycardia. (4) DVT prophylaxis: Lovenox 40 mg SQ Q12h Admission and Anticipated Discharge Date Admission Date: March 29, 2020 Subjective Doing well today. Down to 2L. Worked with PT and [employer]. Ready to go home. Reports no fevers/chills, chest pain, shortness of breath, abdominal pain, nausea, or vomiting. Physical Exam Constitutional: WD/WN, vitals as above + acute distress Eyes: EOM intact bilaterally; no conjunctival abnormality ENMT: external ear and nose normal, oropharynx normal Neck: trachea midline, no thyromegaly normal visual inspection Respiratory: + labored breathing Auscultation: + diminished lung sounds and + crackles; no wheezes Cardiovascular: RRR, no murmur, no edema Gastrointestinal (Abdomen): Inspection/Auscultation: abdomen normal to inspection; abdomen not distended Musculoskeletal: no cyanosis or clubbing, extremities motor strength 5/5 Skin: no rashes, warm and dry Neurologic: moves all extremities and awake Psychiatric: Orientation: alert and oriented to person Results & Data Results & Data ([facility]) Vital Signs (Past 12 Hours) Vital Signs Temp Pulse Pulse Resp BP BP Pulse Ox 04/10/20 12:00 37 C 115 H 22 125/70 93 04/10/20 08:30 126 H 126 H 28 H 140/87 95 04/10/20 04:00 36.6 C 25 L 105 H 136/78 93 PG Care Time/CCT Total # of Minutes Spent Total Time Spent with Patient: Total time spent is greater than 50% in coordination of care (as documented) at patient's floor/unit and/or counseling patient: Coding Level of Care Code 61394 Subseq Hosp Care Lvl 2 Diagnoses Pneumonia due to 2019-nCoV U07.1; J12.89 CARSON (acute kidney injury) N17.9 Hypertension I10 Hypertension type: essential hypertension DVT prophylaxis Z29.9 (1) Hypertension Hypertension type: essential hypertension Qualified Code(s): I10 - Essential (primary) hypertension
[2020-04-10 15:26] LABS: D Dimer 3560 ug/L FEU (0-500)
[2020-04-10] MEDS ORDERED: OPTIRAY 320 125ml IV ONE (17:44)
--- NOTE | 2020-04-10 18:06 | CT Scan Report ---
CT ANGIOGRAM OF THE CHEST CLINICAL HISTORY: Shortness of breath. Tachycardia. Possible pulmonary embolism. COMPARISON STUDY: Chest x-ray performed the same day, CT scan dated 03/30/2020. TECHNIQUE: Following the IV administration of 119 mL of Optiray-320, CT angiogram of the thorax was p erformed from the thoracic inlet to the lung bases utilizing the pulmonary embolus protocol. Images a re reviewed in the axial, sagittal, and coronal planes. IV contrast was administered without complica tion. MIP imaging was performed. A dose lowering technique was utilized adhering to the principles o f ALARA. CT DOSE: 525.88 mGycm FINDINGS: There are borderline enlarged mediastinal and hilar lymph nodes, likely reactive. There was no evidence of thoracic aortic dilatation. The examination is degraded due to motion artifact. Nevertheless, small pulmonary artery filling defe cts are visualized within left upper lobe, left lower lobe, right upper lobe and right lower lobe art douglas branches. There is a small right pleural effusion There was no evidence of focal pulmonary consolidation. There is significant interval improvement in the previously identified multifocal airspace opacities. IMPRESSION: 1. Improving multifocal pneumonia 2. Interval development of small bilateral pulmonary artery filling defects indicative of bilateral p ulmonary embolism 3. Small right pleural effusion ACT 112: Negative or not required by law. Electronically signed by: Juan J Chaparro M.D. 04/10/2020 6:04 PM
[2020-04-10] MEDS ORDERED: Heparin IV Adult Wt-Based Standard WITH Bolus Protocol IV SCH (18:33)
[2020-04-10] MEDS ORDERED: HEPARIN IV BOLUS 8,000 UNITS in SYRINGE 0 ML IV ONE (19:00)
[2020-04-10 19:20] LABS: Basophils # (auto) 0.02 K/uL (0-0.2); Basophils % (auto) 0.2 %; Hematocrit (blood only) 42.5 % (42-52); Hemoglobin 14.1 g/dL (14.0-18.0); Immature Granulocytes # (auto) 0.04 K/uL (0.00-0.02); Immature Granulocytes % (auto) 0.4 %; Lymphocytes # (auto) 2.34 K/uL (1.2-3.4); Lymphocytes % (auto) 22.9 %; Mean Corpuscular Volume 90.4 fL (80-100); Mean Platelet Volume 8.8 fL (7.4-10.4); Monocytes # (auto) 1.03 K/uL (0.11-0.59); Monocytes % (auto) 10.1 %; Neutrophils % (auto) 66.4 %; Platelet Count 216 K/uL (130-400); RDW Coefficient of Variation 14.3 % (11.5-14.5); RDW Standard Deviation 47.6 fL (36.4-46.3); White Blood Count 10.23 K/uL (4.8-10.8)
[2020-04-10 19:22] LABS: Mean Corpuscular Hgb Conc 33.2 g/dL (32-36)
[2020-04-10 19:30] LABS: INR 1.2 (0.9-1.1); Partial Thromboplastin Time 28.3 Seconds (21.0-31.0); Prothrombin Time 12.7 Seconds (9.0-12.0)
[2020-04-10] MEDS: HEPARIN SODIUM/DEXTROSE 25,000 UNITS/500 ML BAG IV SCH (20:19)
[2020-04-10] MEDS ORDERED: Nursing to Pharmacy Communication SCH (20:30)
--- NOTE | 2020-04-10 23:12 | Electrocardiogram Report ---
Test Reason : Blood Pressure : / mmHG Vent. Rate : 127 BPM Atrial Rate : 127 BPM P-R Int : 142 ms QRS Dur : 078 ms QT Int : 318 ms P-R-T Axes : 054 028 081 degrees QTc Int : 462 ms Sinus tachycardia Nonspecific ST and T wave abnormality Abnormal ECG When compared with ECG of 29-MAR-2020 09:40, Nonspecific T wave abnormality no longer evident in Inferior leads T wave inversion now evident in Anterolateral leads Confirmed by Adryan Soto ([id number]) on 04/10/2020 11:11:39 PM Referred By: REFERRED SELF Confirmed By:Adryan Soto
[2020-04-11 03:02] LABS: Basophils # (auto) 0.02 K/uL (0-0.2); Basophils % (auto) 0.2 %; Eosinophils # (auto) 0.01 K/uL (0-0.5); Eosinophils % (auto) 0.1 %; Hematocrit (blood only) 42.6 % (42-52); Hemoglobin 13.7 g/dL (14.0-18.0); Immature Granulocytes # (auto) 0.02 K/uL (0.00-0.02); Immature Granulocytes % (auto) 0.2 %; Lymphocytes # (auto) 2.59 K/uL (1.2-3.4); Lymphocytes % (auto) 26.5 %; Mean Corpuscular Hemoglobin 29.1 pg (25-34); Mean Corpuscular Hgb Conc 32.2 g/dL (32-36); Mean Corpuscular Volume 90.6 fL (80-100); Monocytes # (auto) 1.05 K/uL (0.11-0.59); Monocytes % (auto) 10.7 %; Neutrophils % (auto) 62.3 %; Platelet Count 190 K/uL (130-400); RDW Coefficient of Variation 14.2 % (11.5-14.5); RDW Standard Deviation 46.4 fL (36.4-46.3); White Blood Count 9.79 K/uL (4.8-10.8)
[2020-04-11 03:19] LABS: Albumin Level 2.9 gm/dl (3.4-5.0); Calcium 9.1 mg/dl (8.5-10.1); Creatinine Clr Calc Pharmacy 131.9 ml/min; Est GFR (African American) 107.3; Est GFR (Non-African American) 92.6; Magnesium 2.4 mg/dl (1.8-2.4); Potassium 3.6 mmol/L (3.5-5.1)
[2020-04-11 03:21] LABS: Partial Thromboplastin Ratio 1.8
[2020-04-11 03:22] LABS: Albumin Globulin Ratio 0.6 (0.9-2); Bilirubin,Total 1.1 mg/dl (0.2-1); Globulin 5.2 gm/dl (2.5-4.0); Total Protein 8.1 gm/dl (6.4-8.2)
[2020-04-11 03:24] LABS: Partial Thromboplastin Time 50.3 Seconds (21.0-31.0)
[2020-04-11] MEDS: ARTIFICIAL TEARS OP OINT 3.5 GM TUBE OP SCH ×2 (08:30→20:05)
[2020-04-11] MEDS: HEPARIN SODIUM/DEXTROSE 25,000 UNITS/500 ML BAG IV SCH ×2 (08:30→23:16)
[2020-04-11] MEDS: METOPROLOL SUCC 25MG EXT REL TAB PO SCH (08:31)
[2020-04-11] MEDS: amLODIPine BESYLATE 5 MG TAB PO SCH (08:31)
--- NOTE | 2020-04-11 10:39 | Hospitalist Progress Note ---
Date of Service April 11, 2020 Assessment & Plan (1) Pulmonary embolism: found on CT chest 04/10 due to tachycardia started on heparin drip on 04/10 will start Coumadin 10mg daily today, check INR daily will be here a few days for INR to get therapeutic (2) Pneumonia due to 2019-nCoV: Tested positive in the ED; symptoms x about 1 week at [facility]. No PE on CTA on 03/30. - Dexamethasone 6 mg IV daily x 10 days (Finished 04/07). - Remdesivir & convalescent plasma held for late in course. - Extubated on 04/08; now on 2.5L NC, breathing well - DuoNebs PRN (3) CARSON (acute kidney injury): No know prior renal issues. - Cr was 1.7 on admission; likely due to pre-renal as he has not eaten or drank much in the last week. - Follow Cr -> Improved to baseline by 04/08, though trending up a bit now that he's off IV fluids. (4) Hypertension: Reports hx of HTN, but on no meds for this. BP today is 140/85. - Amlodipine 10 mg PO daily. - Added Toprol XL 25 mg PO daily on 04/09 for tachycardia, HR is controlled (5) DVT prophylaxis: Lovenox 40 mg SQ Q12h Admission and Anticipated Discharge Date Admission Date: March 29, 2020 Subjective patient doing well, denies chest pain, dyspnea, fever/chills he is tolerating yogurt, fruit, says he is not hungry for solid foods, he says everything is going down okay reviewed chart, found to have a PE yesterday on CT, started on heparin drip will start on Coumadin today explained to him that he will be here until INR therapeutic Review of Systems Review of Systems: All systems reviewed & are unremarkable except as noted in Subjective Physical Exam Constitutional: well developed, well nourished and + morbidly obese; no acute distress Neck: trachea midline and + thick neck; + abnormal visual inspection (scar from prior tracheostomy) Respiratory: normal respiratory effort; no respiratory distress and no labored breathing Auscultation: no crackles, no rales, no rhonchi and no wheezes Cardiovascular: RRR, no murmur, no edema Gastrointestinal (Abdomen): normal bowel sounds, soft, nontender, no hepatosplenomegaly Musculoskeletal: no cyanosis or clubbing, extremities motor strength 5/5 Skin: no rashes, warm and dry Neurologic: patellar DTR's 2+ bilat, sensation intact and PERRL, EOMI, accommodation nl, no face palsy, no dysarthria Psychiatric: A+Ox3, euthymic affect Lymphatic: no cervical or axillary lymphadenopathy Results & Data Results & Data ([facility]) Vital Signs (Past 12 Hours) Vital Signs Temp Pulse Pulse Pulse Resp BP BP 04/11/20 08:13 36.9 C 102 H 20 125/74 04/11/20 03:24 37.6 C H 94 H 26 H 143/73 H 04/11/20 00:57 115 H 04/10/20 23:27 37.0 C 114 H 24 135/75 Pulse Ox 04/11/20 08:13 96 04/11/20 03:24 92 04/11/20 00:57 04/10/20 23:27 96 Laboratory Results Laboratory Results - last 24 hr 04/10/20 04/10/20 04/10/20 14:32 19:02 19:02 WBC 10.23 RBC 4.70 Hgb 14.1 Hct 42.5 MCV 90.4 MCH 30.0 MCHC 33.2 RDW Std Deviation 47.6 H RDW Coeff of Harmony 14.3 Plt Count 216 MPV 8.8 Immature Gran % (Auto) 0.4 Neut % (Auto) 66.4 Lymph % (Auto) 22.9 [place] % (Auto) 10.1 Eos % (Auto) 0.0 Baso % (Auto) 0.2 Neut # (Auto) 6.80 H Lymph # (Auto) 2.34 [place] # (Auto) 1.03 H Eos # (Auto) 0.00 Baso # (Auto) 0.02 Immature Gran # (Auto) 0.04 H PT 12.7 H INR 1.2 H APTT 28.3 PTT Ratio 1.0 D-Dimer 3560 H* Sodium Potassium Chloride Carbon Dioxide Anion Gap BUN Creatinine Est Cr Clr Drug Dosing Est GFR ( Amer) Est GFR (Non-Af Amer) BUN/Creatinine Ratio Glucose Calcium Magnesium Total Bilirubin AST ALT Alkaline Phosphatase Total Protein Albumin Globulin Albumin/Globulin Ratio 04/11/20 04/11/20 04/11/20 02:33 02:33 02:33 WBC 9.79 RBC 4.70 Hgb 13.7 L Hct 42.6 MCV 90.6 MCH 29.1 MCHC 32.2 RDW Std Deviation 46.4 H RDW Coeff of Harmony 14.2 Plt Count 190 MPV 9.0 Immature Gran % (Auto) 0.2 Neut % (Auto) 62.3 Lymph % (Auto) 26.5 [place] % (Auto) 10.7 Eos % (Auto) 0.1 Baso % (Auto) 0.2 Neut # (Auto) 6.10 Lymph # (Auto) 2.59 [place] # (Auto) 1.05 H Eos # (Auto) 0.01 Baso # (Auto) 0.02 Immature Gran # (Auto) 0.02 PT INR APTT 50.3 H* PTT Ratio 1.8 D-Dimer Sodium 135 L Potassium 3.6 Chloride 101 Carbon Dioxide 32 Anion Gap 2.0 L BUN 19 H Creatinine 0.97 Est Cr Clr Drug Dosing 131.9 Est GFR ( Amer) 107.3 Est GFR (Non-Af Amer) 92.6 BUN/Creatinine Ratio 19.0 Glucose 123 H Calcium 9.1 Magnesium 2.4 Total Bilirubin 1.1 H AST 69 H ALT 212 H Alkaline Phosphatase 148 H Total Protein 8.1 Albumin 2.9 L Globulin 5.2 H Albumin/Globulin Ratio 0.6 L Medications Administered Current Inpatient Medications Albuterol (Albut/Ipratrop 3mg/0.5mg Neb 3 Ml Vial) 3 ml NEB QIDR PRN PRN Reason: Shortness Of Breath Or Wheezing Stop: 04/28/20 16:17 Last Admin: 03/30/20 20:01 Dose: 3 ml Documented by: Albuterol (Albuterol 0.5% Neb Soln 2.5 Mg/0.5 Ml Vial) 2.5 mg NEB Q6R PRN PRN Reason: short of breath Stop: 04/30/20 06:59 Amlodipine Besylate (Amlodipine Besylate 5 Mg Tab) 10 mg PO QAM [facility] Stop: 05/04/20 08:59 Last Admin: 04/11/20 08:31 Dose: 10 mg Documented by: Hydralazine HCl (Hydralazine Hcl 20 Mg/Ml Vial) 5 mg IV Q4 PRN PRN Reason: Hypertension Stop: 01/14/21 13:44 Heparin Sodium/Dextrose (Heparin Sodium/Dextrose) 25,000 units in 500 mls @ 36 mls/hr IV .[id number] [facility]; Protocol Stop: 05/10/20 18:59 Last Admin: 04/11/20 08:30 Dose: 1,800 units/hr, 36 mls/hr Documented by: Metoprolol Succinate (Metoprolol Succ 25mg Ext Rel Tab) 25 mg PO QAM [facility] Stop: 05/09/20 10:14 Last Admin: 04/11/20 08:31 Dose: 25 mg Documented by: Multi-Ingredient Cream (Artificial Tears Op Oint 3.5 Gm Tube) 1 appln OP BID [facility] Stop: 05/02/20 20:59 Last Admin: 04/11/20 08:30 Dose: Not Given Documented by: Warfarin Sodium (Warfarin Sod 10 Mg Tab) 10 mg PO DAILY@1600 [facility] Stop: 05/11/20 15:59 PG Care Time/CCT Total # of Minutes Spent Total Time Spent with Patient: Total time spent is greater than 50% in coordination of care (as documented) at patient's floor/unit and/or counseling patient: Coding Level of Care Code 50228 Subseq Hosp Care Lvl 2 Diagnoses Pulmonary embolism I26.99 Pneumonia due to 2019-nCoV U07.1; J12.89 CARSON (acute kidney injury) N17.9 Hypertension I10 Hypertension type: essential hypertension DVT prophylaxis Z29.9 (1) Hypertension Hypertension type: essential hypertension Qualified Code(s): I10 - Essential (primary) hypertension
[2020-04-11] MEDS: WARFARIN SOD 10 MG TAB PO SCH (15:43)
[2020-04-12 06:20] LABS: INR 1.3 (0.9-1.1); Prothrombin Time 13.9 Seconds (9.0-12.0)
[2020-04-12 06:38] LABS: Partial Thromboplastin Ratio 1.5; Partial Thromboplastin Time 42.6 Seconds (21.0-31.0)
[2020-04-12] MEDS: ARTIFICIAL TEARS OP OINT 3.5 GM TUBE OP SCH ×2 (08:27→21:19)
[2020-04-12] MEDS: amLODIPine BESYLATE 5 MG TAB PO SCH (08:43)
[2020-04-12] MEDS: METOPROLOL SUCC 25MG EXT REL TAB PO SCH (08:43)
--- NOTE | 2020-04-12 09:36 | Hospitalist Progress Note ---
Date of Service April 12, 2020 Assessment & Plan (1) Pulmonary embolism: found on CT chest 04/10 due to tachycardia started on heparin drip on 04/10 will start Coumadin 10mg daily today, INR is 1.3 this morning will be here a few days for INR to get therapeutic keep 24 hours after INR is > 2.0 (2) Pneumonia due to 2019-nCoV: Tested positive in the ED; symptoms x about 1 week at [facility]. No PE on CTA on 03/30. - Dexamethasone 6 mg IV daily x 10 days (Finished 04/07). - Remdesivir & convalescent plasma held for late in course. - Extubated on 04/08; now on 3L NC, breathing well, lungs clear - DuoNebs PRN (3) CARSON (acute kidney injury): No know prior renal issues. - Cr was 1.7 on admission; likely due to pre-renal as he has not eaten or drank much in the last week. - Follow Cr -> Improved to baseline by 04/08, though trending up a bit now that he's off IV fluids. (4) Hypertension: Reports hx of HTN, but on no meds for this. BP today is 140/85. - Amlodipine 10 mg PO daily. - Added Toprol XL 25 mg PO daily on 04/09 for tachycardia, HR is controlled (5) DVT prophylaxis: Lovenox 40 mg SQ Q12h Admission and Anticipated Discharge Date Admission Date: March 29, 2020 Subjective patient feels great this morning, breathing easy tolerating diet, mostly drinking and eating fruit, prefers cold foods no chest pain, no fever, no distress his INR is 1.3 after Coumadin 10mg will downgrade to medical floor today Review of Systems Review of Systems: All systems reviewed & are unremarkable except as noted in Subjective Physical Exam Constitutional: well developed, well nourished and + morbidly obese; no acute distress Neck: trachea midline and + thick neck; + abnormal visual inspection (scar from prior tracheostomy) Respiratory: normal respiratory effort; no respiratory distress and no labored breathing Auscultation: no crackles, no rales, no rhonchi and no wheezes Cardiovascular: RRR, no murmur, no edema Gastrointestinal (Abdomen): normal bowel sounds, soft, nontender, no hepatosplenomegaly Musculoskeletal: no cyanosis or clubbing, extremities motor strength 5/5 Skin: no rashes, warm and dry Neurologic: patellar DTR's 2+ bilat, sensation intact and PERRL, EOMI, accommodation nl, no face palsy, no dysarthria Psychiatric: A+Ox3, euthymic affect Lymphatic: no cervical or axillary lymphadenopathy Results & Data Results & Data ([facility]) Vital Signs (Past 12 Hours) Vital Signs Temp Pulse Pulse Resp BP BP Pulse Ox 04/12/20 07:24 37.5 C 96 H 18 128/73 93 04/12/20 03:34 37.0 C 103 H 21 121/76 96 04/12/20 00:33 94 H 04/11/20 23:33 37.0 C 103 H 20 111/66 94 Laboratory Results Laboratory Results - last 24 hr 04/12/20 04/12/20 05:43 05:43 PT 13.9 H INR 1.3 H APTT 42.6 H PTT Ratio 1.5 Medications Administered Current Inpatient Medications Albuterol (Albut/Ipratrop 3mg/0.5mg Neb 3 Ml Vial) 3 ml NEB QIDR PRN PRN Reason: Shortness Of Breath Or Wheezing Stop: 04/28/20 16:17 Last Admin: 03/30/20 20:01 Dose: 3 ml Documented by: Albuterol (Albuterol 0.5% Neb Soln 2.5 Mg/0.5 Ml Vial) 2.5 mg NEB Q6R PRN PRN Reason: short of breath Stop: 04/30/20 06:59 Amlodipine Besylate (Amlodipine Besylate 5 Mg Tab) 10 mg PO [facility] Stop: 05/04/20 08:59 Last Admin: 04/12/20 08:43 Dose: 10 mg Documented by: Hydralazine HCl (Hydralazine Hcl 20 Mg/Ml Vial) 5 mg IV Q4 PRN PRN Reason: Hypertension Stop: 05/07/20 13:44 Heparin Sodium/Dextrose (Heparin Sodium/Dextrose) 25,000 units in 500 mls @ 38 mls/hr IV .[id number] [facility]; Protocol Stop: 05/10/20 18:59 Last Titration: 04/12/20 06:44 Dose: 1,900 units/hr, 38 mls/hr Documented by: Metoprolol Succinate (Metoprolol Succ 25mg Ext Rel Tab) 25 mg PO QAM [facility] Stop: 05/09/20 10:14 Last Admin: 04/12/20 08:43 Dose: 25 mg Documented by: Multi-Ingredient Cream (Artificial Tears Op Oint 3.5 Gm Tube) 1 appln OP BID [facility] Stop: 05/02/20 20:59 Last Admin: 04/12/20 08:27 Dose: Not Given Documented by: Warfarin Sodium (Warfarin Sod 10 Mg Tab) 10 mg PO DAILY@1600 [facility] Stop: 05/11/20 15:59 Last Admin: 04/11/20 15:43 Dose: 10 mg Documented by: PG Care Time/CCT Total # of Minutes Spent Total Time Spent with Patient: Total time spent is greater than 50% in coordination of care (as documented) at patient's floor/unit and/or counseling patient: Coding Level of Care Code 31345 Subseq Hosp Care Lvl 2 Diagnoses Pulmonary embolism I26.99 Pneumonia due to 2019-nCoV U07.1; J12.89 CARSON (acute kidney injury) N17.9 Hypertension I10 Hypertension type: essential hypertension DVT prophylaxis Z29.9 (1) Hypertension Hypertension type: essential hypertension Qualified Code(s): I10 - Essential (primary) hypertension
[2020-04-12] MEDS: HEPARIN SODIUM/DEXTROSE 25,000 UNITS/500 ML BAG IV SCH ×2 (12:10→16:24)
[2020-04-12 13:35] LABS: Partial Thromboplastin Ratio 1.3; Partial Thromboplastin Time 36.1 Seconds (21.0-31.0)
[2020-04-12] MEDS ORDERED: HEPARIN IV BOLUS 4,000 UNITS in SYRINGE 0 ML IV ONE (13:51)
[2020-04-12] MEDS: WARFARIN SOD 10 MG TAB PO SCH (16:24)
[2020-04-12 20:52] LABS: Partial Thromboplastin Ratio 2.2
[2020-04-12 20:54] LABS: Partial Thromboplastin Time 61.2 Seconds (21.0-31.0)
[2020-04-13] MEDS: HEPARIN SODIUM/DEXTROSE 25,000 UNITS/500 ML BAG IV SCH ×4 (00:33→20:27)
[2020-04-13] MEDS: METOPROLOL SUCC 25MG EXT REL TAB PO SCH (08:48)
[2020-04-13] MEDS: ARTIFICIAL TEARS OP OINT 3.5 GM TUBE OP SCH ×2 (08:48→21:13)
[2020-04-13] MEDS: amLODIPine BESYLATE 5 MG TAB PO SCH (08:48)
[2020-04-13 09:08] LABS: INR 1.8 (0.9-1.1); Partial Thromboplastin Ratio 2.5; Prothrombin Time 18.2 Seconds (9.0-12.0)
[2020-04-13 09:57] LABS: Partial Thromboplastin Time 69.2 Seconds (21.0-31.0)
--- NOTE | 2020-04-13 16:21 | Hospitalist Progress Note ---
Date of Service April 13, 2020 Assessment & Plan (1) Pulmonary embolism: found on CT chest 04/10 due to tachycardia started on heparin drip on 04/10 will start Coumadin 10mg daily today, INR is 1.8 this morning cut Coumadin to 5mg today will be here a few days for INR to get therapeutic keep 24 hours after INR is > 2.0 likely back to [facility] on Monday (2) Pneumonia due to 2019-nCoV: Tested positive in the ED; symptoms x about 1 week at [facility]. No PE on CTA on 03/30. - Dexamethasone 6 mg IV daily x 10 days (Finished 04/07). - Remdesivir & convalescent plasma held for late in course. - Extubated on 04/08; now on 2L NC, breathing well, lungs clear - DuoNebs PRN (3) CARSON (acute kidney injury): No know prior renal issues. - Cr was 1.7 on admission; likely due to pre-renal as he has not eaten or drank much in the last week. - Follow Cr -> Improved to baseline by 04/08, though trending up a bit now that he's off IV fluids. (4) Hypertension: Reports hx of HTN, but on no meds for this. BP today is 123/75 - Amlodipine 10 mg PO daily. - Added Toprol XL 25 mg PO daily on 04/09 for tachycardia, HR is controlled (5) DVT prophylaxis: Lovenox 40 mg SQ Q12h Admission and Anticipated Discharge Date Admission Date: March 29, 2020 Subjective patient doing great today, ambulated, he is sitting in a chair eating better saturations stable on 2L, 95%, close to getting off oxygen fever this afternoon of 38.1, unclear why, other vitals are stable will monitor INR is 1.8, will cut Coumadin to 5mg told him to plan for discharge on Monday Review of Systems Review of Systems: All systems reviewed & are unremarkable except as noted in Subjective Respiratory: + dyspnea on exertion; no cough and no dyspnea Cardiovascular: no chest pain Gastrointestinal: no abdominal pain, no nausea, no vomiting, no constipation and no diarrhea/loose stools Physical Exam Constitutional: well developed, well nourished and + morbidly obese; no acute distress Neck: trachea midline and + thick neck; + abnormal visual inspection (scar from prior tracheostomy) Respiratory: normal respiratory effort; no respiratory distress and no labored breathing Auscultation: no crackles, no rales, no rhonchi and no wheezes Cardiovascular: Rate/Rhythm: regular rhythm and + tachycardic Heart Sounds: normal S1 and normal S2; no murmur Extremities: normal capillary refill; no edema Gastrointestinal (Abdomen): normal bowel sounds, soft, nontender, no hepatosplenomegaly Musculoskeletal: no cyanosis or clubbing, extremities motor strength 5/5 Skin: no rashes, warm and dry Neurologic: patellar DTR's 2+ bilat, sensation intact and PERRL, EOMI, accommodation nl, no face palsy, no dysarthria Psychiatric: A+Ox3, euthymic affect Lymphatic: no cervical or axillary lymphadenopathy Results & Data Results & Data ([facility]) Vital Signs (Past 12 Hours) Vital Signs Temp Pulse Resp BP Pulse Ox 04/13/20 15:24 38.1 C H 106 H 18 123/75 95 04/13/20 11:21 37.4 C 94 H 18 133/80 98 04/13/20 07:35 36.8 C 94 H 18 148/72 H 92 Laboratory Results Laboratory Results - last 24 hr 04/12/20 04/13/20 04/13/20 20:15 07:51 16:06 PT 18.2 H INR 1.8 H APTT 61.2 H* 69.2 H* Pending PTT Ratio 2.2 2.5 Pending Medications Administered Current Inpatient Medications Albuterol (Albut/Ipratrop 3mg/0.5mg Neb 3 Ml Vial) 3 ml NEB QIDR PRN PRN Reason: Shortness Of Breath Or Wheezing Stop: 04/28/20 16:17 Last Admin: 03/30/20 20:01 Dose: 3 ml Documented by: Albuterol (Albuterol 0.5% Neb Soln 2.5 Mg/0.5 Ml Vial) 2.5 mg NEB Q6R PRN PRN Reason: short of breath Stop: 04/30/20 06:59 Amlodipine Besylate (Amlodipine Besylate 5 Mg Tab) [facility] Stop: 05/04/20 08:59 Last Admin: 04/13/20 08:48 Dose: 10 mg Documented by: Heparin Sodium/Dextrose (Heparin Sodium/Dextrose) 25,000 units in 500 mls @ 40 mls/hr IV .[id number] [facility]; Protocol Stop: 05/10/20 18:59 Last Admin: 04/13/20 13:00 Dose: 2,000 units/hr, 40 mls/hr Documented by: Metoprolol Succinate (Metoprolol Succ 25mg Ext Rel Tab) 25 mg PO QAM [facility] Stop: 05/09/20 10:14 Last Admin: 04/13/20 08:48 Dose: 25 mg Documented by: Multi-Ingredient Cream (Artificial Tears Op Oint 3.5 Gm Tube) 1 appln OP BID [facility] Stop: 05/02/20 20:59 Last Admin: 04/13/20 08:48 Dose: 1 appln Documented by: Warfarin Sodium (Warfarin Sod 5 Mg Tab) 5 mg PO DAILY@1600 [facility] Stop: 05/13/20 15:59 PG Care Time/CCT Total # of Minutes Spent Total Time Spent with Patient: Total time spent is greater than 50% in coordination of care (as documented) at patient's floor/unit and/or counseling patient: Coding Level of Care Code 58417 Subseq Hosp Care Lvl 2 Diagnoses Pulmonary embolism I26.99 Pneumonia due to 2019-nCoV U07.1; J12.89 CARSON (acute kidney injury) N17.9 Hypertension I10 Hypertension type: essential hypertension DVT prophylaxis Z29.9 (1) Hypertension Hypertension type: essential hypertension Qualified Code(s): I10 - Essential (primary) hypertension
[2020-04-13 16:35] LABS: Partial Thromboplastin Ratio 2.1
[2020-04-13 16:36] LABS: Partial Thromboplastin Time 59.9 Seconds (21.0-31.0)
[2020-04-13] MEDS: WARFARIN SOD 5 MG TAB PO SCH (16:58)
[2020-04-13] MEDS ORDERED: ACETAMINOPHEN 325 MG TAB PO PRN (17:24)
[2020-04-13] MEDS ORDERED: ACETAMINOPHEN 325 MG TAB ONE (17:25)
[2020-04-14] MEDS: CEFEPIME 2,000 MG in SYRINGE 0 ML IV SCH ×2 (00:48→11:29)
[2020-04-14] MEDS: HEPARIN SODIUM/DEXTROSE 25,000 UNITS/500 ML BAG IV SCH ×4 (02:15→20:27)
[2020-04-14 07:16] LABS: Appearance Urine Clear (Clear); Bilirubin Urine Negative (Negative); Blood Urine Negative (Negative); Color Urine Yellow; Glucose Urine UA Negative (Negative); Ketones Urine Negative (Negative); Leukocyte Esterase Urine Negative (Negative); Nitrite Urine Negative (Negative); Protein Urine Negative (Negative); Specific Gravity Urine 1.014 (1.000-1.030); Urobilinogen Urine Negative (Negative)
[2020-04-14] MEDS: ARTIFICIAL TEARS OP OINT 3.5 GM TUBE OP SCH ×2 (09:24→21:05)
[2020-04-14] MEDS: amLODIPine BESYLATE 5 MG TAB PO SCH (09:24)
[2020-04-14] MEDS: METOPROLOL SUCC 25MG EXT REL TAB PO SCH (09:24)
[2020-04-14 10:25] LABS: Basophils # (auto) 0.02 K/uL (0-0.2); Basophils % (auto) 0.6 %; Hematocrit (blood only) 38.9 % (42-52); Hemoglobin 12.8 g/dL (14.0-18.0); Lymphocytes # (auto) 1.16 K/uL (1.2-3.4); Lymphocytes % (auto) 34.8 %; Mean Corpuscular Hemoglobin 29.4 pg (25-34); Mean Corpuscular Hgb Conc 32.9 g/dL (32-36); Mean Corpuscular Volume 89.2 fL (80-100); Mean Platelet Volume 8.8 fL (7.4-10.4); Monocytes # (auto) 0.52 K/uL (0.11-0.59); Monocytes % (auto) 15.6 %; Neutrophils # (auto) 1.63 K/uL (1.4-6.5); Platelet Count 217 K/uL (130-400); RDW Coefficient of Variation 14.1 % (11.5-14.5); RDW Standard Deviation 46.2 fL (36.4-46.3); Red Blood Count 4.36 M/uL (4.7-6.1); White Blood Count 3.33 K/uL (4.8-10.8)
[2020-04-14 10:46] LABS: INR 2.2 (0.9-1.1); Prothrombin Time 22.2 Seconds (9.0-12.0)
[2020-04-14 10:56] LABS: Albumin Level 2.9 gm/dl (3.4-5.0); BUN Creatinine Ratio 9.4 (10-20); Calcium 9.1 mg/dl (8.5-10.1); Creatinine Clr Calc Pharmacy 133.3 ml/min; Est GFR (African American) 108.7; Est GFR (Non-African American) 93.8; Potassium 3.5 mmol/L (3.5-5.1)
[2020-04-14 11:01] LABS: Albumin Globulin Ratio 0.6 (0.9-2); Bilirubin,Total 0.5 mg/dl (0.2-1); Globulin 4.8 gm/dl (2.5-4.0); Total Protein 7.7 gm/dl (6.4-8.2)
[2020-04-14 11:56] LABS: Partial Thromboplastin Ratio 2.6
[2020-04-14] MEDS: WARFARIN SOD 5 MG TAB PO SCH (15:06)
--- NOTE | 2020-04-14 16:22 | Hospitalist Progress Note ---
Date of Service April 14, 2020 Assessment & Plan (1) Pulmonary embolism: found on CT chest 04/10 due to tachycardia started on heparin drip on 04/10 received Coumadin 10mg daily 04/11, 04/12 cut Coumadin to 5mg 04/13 INR is 2.2 today, continue 5mg daily stop heparin this evening INR in the morning discharge back to [facility] (2) Fever: last night, isolated event he said he did not feel feverish blood cultures drawn, no growth UA clean WBC mildly low procalcitonin normal continue Cefepime empirically for time being but stop on discharge no central lines that need to be pulled (3) Pneumonia due to 2019-nCoV: Tested positive in the ED; symptoms x about 1 week at [facility]. No PE on CTA on 03/30. - Dexamethasone 6 mg IV daily x 10 days (Finished 04/07). - Remdesivir & convalescent plasma held for late in course. - Extubated on 04/08; now on room air, breathing well, lungs clear - DuoNebs PRN (4) CARSON (acute kidney injury): No know prior renal issues. - Cr was 1.7 on admission; likely due to pre-renal as he has not eaten or drank much in the last week. - Follow Cr -> Improved to baseline by 04/08, though trending up a bit now that he's off IV fluids. (5) Hypertension: Reports hx of HTN, but on no meds for this. BP today is 134/79 - Amlodipine 10 mg PO daily. - Added Toprol XL 25 mg PO daily on 04/09 for tachycardia, HR is controlled (6) DVT prophylaxis: Lovenox 40 mg SQ Q12h Admission and Anticipated Discharge Date Admission Date: March 29, 2020 Subjective patient doing great, walked in the hallway with therapy he is down to room air at rest, breathing well no further fever, had a fever last night but he did not have symptoms blood cultures drawn last night, no growth UA was clean, WBC slightly low he is eating well INR is 2.2, plan for discharge tomorrow, stop heparin drip this evening called [facility] to let them know about planned discharge tomorrow Review of Systems Review of Systems: All systems reviewed & are unremarkable except as noted in Subjective Constitutional: no fever, no chills, no sweats, no body aches, no fatigue and no weakness Respiratory: + dyspnea on exertion; no cough and no dyspnea Gastrointestinal: no abdominal pain, no nausea, no vomiting, no constipation and no diarrhea/loose stools Physical Exam Constitutional: well developed, well nourished and + morbidly obese; no acute distress Neck: trachea midline and + thick neck; + abnormal visual inspection (scar from prior tracheostomy) Respiratory: normal respiratory effort; no respiratory distress and no labored breathing Auscultation: no crackles, no rales, no rhonchi and no wheezes Cardiovascular: Rate/Rhythm: regular rhythm and + tachycardic Heart Sounds: normal S1 and normal S2; no murmur Extremities: normal capillary refill; no edema Gastrointestinal (Abdomen): normal bowel sounds, soft, nontender, no hepatosplenomegaly Musculoskeletal: no cyanosis or clubbing, extremities motor strength 5/5 Skin: no rashes, warm and dry Neurologic: patellar DTR's 2+ bilat, sensation intact and PERRL, EOMI, accommodation nl, no face palsy, no dysarthria Psychiatric: A+Ox3, euthymic affect Lymphatic: no cervical or axillary lymphadenopathy Results & Data Results & Data ([facility]) Vital Signs (Past 12 Hours) Vital Signs Temp Pulse Resp BP Pulse Ox 04/14/20 15:23 37.3 C 111 H 18 134/79 92 04/14/20 07:53 36.9 C 86 16 142/77 H 99 Laboratory Results Laboratory Results - last 24 hr 04/13/20 04/14/20 04/14/20 16:06 06:30 09:39 WBC 3.33 L RBC 4.36 L Hgb 12.8 L Hct 38.9 L MCV 89.2 MCH 29.4 MCHC 32.9 RDW Std Deviation 46.2 RDW Coeff of Harmony 14.1 Plt Count 217 MPV 8.8 Immature Gran % (Auto) 0.0 Neut % (Auto) 49.0 Lymph % (Auto) 34.8 Daniels % (Auto) 15.6 Eos % (Auto) 0.0 Baso % (Auto) 0.6 Neut # (Auto) 1.63 Lymph # (Auto) 1.16 L Daniels # (Auto) 0.52 Eos # (Auto) 0.00 Baso # (Auto) 0.02 Immature Gran # (Auto) 0.00 PT INR APTT 59.9 H* PTT Ratio 2.1 Sodium Potassium Chloride Carbon Dioxide Anion Gap BUN Creatinine Est Cr Clr Drug Dosing Est GFR ( Amer) Est GFR (Non-Af Amer) BUN/Creatinine Ratio Glucose Calcium Total Bilirubin AST ALT Alkaline Phosphatase Total Protein Albumin Globulin Albumin/Globulin Ratio Lipase Procalcitonin Urine Color Yellow Urine Appearance Clear Urine pH 5.0 Ur Specific [place] 1.014 Urine Protein Negative Urine Glucose (UA) Negative Urine Ketones Negative Urine Blood Negative Urine Nitrite Negative Urine Bilirubin Negative Urine Urobilinogen Negative Ur Leukocyte Esterase Negative 04/14/20 04/14/20 04/14/20 09:39 09:39 09:39 WBC RBC Hgb Hct MCV MCH MCHC RDW Std Deviation RDW Coeff of [place] Plt Count MPV Immature Gran % (Auto) Neut % (Auto) Lymph % (Auto) Daniels % (Auto) Eos % (Auto) Baso % (Auto) Neut # (Auto) Lymph # (Auto) Daniels # (Auto) Eos # (Auto) Baso # (Auto) Immature Gran # (Auto) PT 22.2 H INR 2.2 H APTT PTT Ratio Sodium 135 L Potassium 3.5 Chloride 100 Carbon Dioxide 30 Anion Gap 5.0 BUN 9 Creatinine 0.96 Est Cr Clr Drug Dosing 133.3 Est GFR ( Amer) 108.7 Est GFR (Non-Af Amer) 93.8 BUN/Creatinine Ratio 9.4 L Glucose 141 H Calcium 9.1 Total Bilirubin 0.5 AST 38 H ALT 97 H Alkaline Phosphatase 103 Total Protein 7.7 Albumin 2.9 L Globulin 4.8 H Albumin/Globulin Ratio 0.6 L Lipase 146 Procalcitonin 0.19 Urine Color Urine Appearance Urine pH Ur Specific [place] Urine Protein Urine Glucose (UA) Urine Ketones Urine Blood Urine Nitrite Urine Bilirubin Urine Urobilinogen Ur Leukocyte Esterase 04/14/20 10:18 WBC RBC Hgb Hct MCV MCH MCHC RDW Std Deviation RDW Coeff of [place] Plt Count MPV Immature Gran % (Auto) Neut % (Auto) Lymph % (Auto) Daniels % (Auto) Eos % (Auto) Baso % (Auto) Neut # (Auto) Lymph # (Auto) Daniels # (Auto) Eos # (Auto) Baso # (Auto) Immature Gran # (Auto) PT INR APTT 72.0 H* PTT Ratio 2.6 Sodium Potassium Chloride Carbon Dioxide Anion Gap BUN Creatinine Est Cr Clr Drug Dosing Est GFR ( Amer) Est GFR (Non-Af Amer) BUN/Creatinine Ratio Glucose Calcium Total Bilirubin AST ALT Alkaline Phosphatase Total Protein Albumin Globulin Albumin/Globulin Ratio Lipase Procalcitonin Urine Color Urine Appearance Urine pH Ur Specific [place] Urine Protein Urine Glucose (UA) Urine Ketones Urine Blood Urine Nitrite Urine Bilirubin Urine Urobilinogen Ur Leukocyte Esterase Medications Administered Current Inpatient Medications Acetaminophen (Acetaminophen 325 Mg Tab) 650 mg PO Q6H PRN PRN Reason: Fever Stop: 05/13/20 17:23 Albuterol (Albut/Ipratrop 3mg/0.5mg Neb 3 Ml Vial) 3 ml NEB QIDR PRN PRN Reason: Shortness Of Breath Or Wheezing Stop: 04/28/20 16:17 Last Admin: 03/30/20 20:01 Dose: 3 ml Documented by: Albuterol (Albuterol 0.5% Neb Soln 2.5 Mg/0.5 Ml Vial) 2.5 mg NEB Q6R PRN PRN Reason: short of breath Stop: 04/30/20 06:59 Amlodipine Besylate (Amlodipine Besylate 5 Mg Tab) 10 mg PO [facility] Stop: 05/04/20 08:59 Last Admin: 04/14/20 09:24 Dose: 10 mg Documented by: Heparin Sodium/Dextrose (Heparin Sodium/Dextrose) 25,000 units in 500 mls @ 38 mls/hr IV .[id number] [facility]; Protocol Stop: 04/14/20 21:00 Last Admin: 04/14/20 14:28 Dose: 1,900 units/hr, 38 mls/hr Documented by: Cefepime HCl 2,000 mg/ Syringe 20 mls @ 5 mls/min IV Q12H [facility]; Protocol Stop: 04/16/20 00:00 Last Admin: 04/14/20 11:29 Dose: 5 mls/min Documented by: Metoprolol Succinate (Metoprolol Succ 25mg Ext Rel Tab) [facility] Stop: 05/09/20 10:14 Last Admin: 04/14/20 09:24 Dose: 25 mg Documented by: Miscellaneous (Heparin Drip: Stop Order) 1 ea N/A ONE ONE Stop: 04/14/20 21:01 Multi-Ingredient Cream (Artificial Tears Op Oint 3.5 Gm Tube) 1 appln OP BID [facility] Stop: 05/02/20 20:59 Last Admin: 04/14/20 09:24 Dose: Not Given Documented by: Warfarin Sodium (Warfarin Sod 5 Mg Tab) 5 mg PO DAILY@1600 [facility] Stop: 05/13/20 15:59 Last Admin: 04/14/20 15:06 Dose: 5 mg Documented by: PG Care Time/CCT Total # of Minutes Spent Total Time Spent with Patient: Total time spent is greater than 50% in coordination of care (as documented) at patient's floor/unit and/or counseling patient: Coding Level of Care Code 58439 Subseq Hosp Care Lvl 3 Diagnoses Pulmonary embolism I26.99 Fever R50.9 Pneumonia due to 2019-nCoV U07.1; J12.89 CARSON (acute kidney injury) N17.9 Hypertension I10 Hypertension type: essential hypertension DVT prophylaxis Z29.9 (1) Hypertension Hypertension type: essential hypertension Qualified Code(s): I10 - Essential (primary) hypertension
[2020-04-14 19:50] LABS: Partial Thromboplastin Ratio 2.7
[2020-04-14 19:53] LABS: Partial Thromboplastin Time 74.3 Seconds (21.0-31.0)
[2020-04-14] MEDS ORDERED: HEPARIN DRIP: STOP ORDER ONE (21:00)
[2020-04-15] MEDS ORDERED: METOPROLOL SUCC 25MG EXT REL TAB PO SCH
[2020-04-15] MEDS ORDERED: amLODIPine BESYLATE 5 MG TAB PO SCH
[2020-04-15] MEDS: CEFEPIME 2,000 MG in SYRINGE 0 ML IV SCH ×2 (00:22→11:32)
[2020-04-15] MEDS: METOPROLOL SUCC 25MG EXT REL TAB PO SCH (08:10)
[2020-04-15] MEDS: amLODIPine BESYLATE 5 MG TAB PO SCH (08:10)
[2020-04-15] MEDS: ARTIFICIAL TEARS OP OINT 3.5 GM TUBE OP SCH (08:10)
[2020-04-15 09:20] LABS: INR 2.1 (0.9-1.1); Prothrombin Time 21.6 Seconds (9.0-12.0)
--- NOTE | 2020-04-15 12:25 | Discharge Summary ---
Date of Service April 15, 2020 Admission HPI Per Admitting Provider 49yo M w/ hx of HTN who presents with Covid. The patient reports he has had symptoms about 1 week. He has felt increasing shortness of breath, cough, fevers/chills, and diarrhea. He was not tested at [facility], but was sent in for hypoxemia. Principal Diagnosis COVID 19 pneumonia causing acute hypoxemic respiratory failure Discharge Exam Constitutional well developed, well nourished and + morbidly obese; no acute distress Neck trachea midline and + thick neck; + abnormal visual inspection (scar from prior tracheostomy) Respiratory normal respiratory effort; no respiratory distress and no labored breathing Auscultation: no crackles, no rales, no rhonchi and no wheezes Cardiovascular RRR, no murmur, no edema Gastrointestinal (Abdomen) normal bowel sounds, soft, nontender, no hepatosplenomegaly Musculoskeletal no cyanosis or clubbing, extremities motor strength 5/5 Skin no rashes, warm and dry Neurologic patellar DTR's 2+ bilat, sensation intact and PERRL, EOMI, accommodation nl, no face palsy, no dysarthria Psychiatric A+Ox3, euthymic affect Lymphatic no cervical or axillary lymphadenopathy Discharge Data Allergies Allergy/AdvReac Type Severity Reaction Status Date / Time Penicillins Allergy Verified 03/29/20 10:31 strawberry Allergy Verified 03/29/20 10:31 Consultations 03/29/20 13:16 ED Decision to Admit Stat 03/31/20 08:33 Consult Biomedical Analytical Scientist Routine Ordered Studies 03/30/20 10:57 CT angio chest PE protocol Routine 04/09/20 17:57 US venous doppler LE Urgent 04/10/20 16:40 CT angio chest PE protocol Urgent Hospital Course (1) Pulmonary embolism: found on CT chest 04/10 due to tachycardia started on heparin drip on 04/10 received Coumadin 10mg daily 04/11, 04/12 cut Coumadin to 5mg 04/13 and 04/14 INR down a little at 2.1 from 2.2 will give 7.5mg today (04/15) suspect he will need alternating 5mg and 7.5mg doses defer to provider at [facility] (2) Pneumonia due to 2019-nCoV: Tested positive in the ED; symptoms x about 1 week at [facility]. No PE on CTA on 03/30. - Dexamethasone 6 mg IV daily x 10 days (Finished 04/07). - Remdesivir & convalescent plasma held for late in course. - Extubated on 04/08; now on room air, breathing well, lungs clear (3) Acute respiratory failure with hypoxia: patient admitted on high flow nasal canula then required BIPAP and eventually needed intubated with mechanical ventilation he was extubated 04/08, stable for one week he was titrated down to room air on 04/14, breathing well (4) Fever: two nights ago, isolated event he said he did not feel feverish blood cultures drawn, no growth UA clean WBC mildly low procalcitonin normal continue Cefepime empirically for time being but stop on discharge no central lines that need to be pulled (5) CARSON (acute kidney injury): No know prior renal issues. - Cr was 1.7 on admission; likely due to pre-renal as he has not eaten or drank much in the last week. - Follow Cr -> Improved to baseline by 04/08, though trending up a bit now that he's off IV fluids. (6) Hypertension: Reports hx of HTN, but on no meds for this. BP today is 123/71 - Amlodipine 10 mg PO daily. - Added Toprol XL 25 mg PO daily on 04/09 for tachycardia, HR is controlled and BP better controlled continue amlodipine 10mg daily, can either use Toprol 25mg daily or Lopressor 25 mg BID depending on [facility] formulary (7) DVT prophylaxis: Lovenox 40 mg SQ Q12h Total Time Total Time Spent Total Time Spent (In Minutes): 33 minutes Total Time Includes: Examination of the Patient, Discharge Planning, Medication Reconciliation and Communication With Other Providers (provider at [facility]) Discharge Plan Discharge Items [facility] Reason For Visit: COVID-19 Discharge Diagnosis: COVID 19 pneumonia Bilateral pulmonary emboli Acute hypoxic respiratory failure Condition on Discharge: Good Goals: improve strength and mobility stay well nourished and well hydrated Activity: Resume your previous activity Weightbearing: Full weightbearing Non-emergency contact: Primary Care Provider Call non-emergency contact if: you have any medication questions, your symptoms worsen and you have a fever Follow-up/Referrals: Henrique HOLDER [Primary Care Provider] - Diet: Regular Addtl Attending Provider Instructions: Medications: - COUMADIN: INR is 2.1 today, likely needs combination of 5mg and 7.5mg alternating, will defer to provider at [facility] will give him 7.5mg on 04/15 prior to discharge and leave it up to provider for tomorrow's dose - NORVASC: 10mg daily for blood pressure control - TOPROL: 25mg daily, if Toprol is not on formulary then can be switched to Lopressor 25mg BID COVID 19 pneumonia, acute hypoxic respiratory failure required mechanical ventilation for a week has been extubated for over a week, doing well no further treatment required for the pneumonia, is no longer contagious bilateral PE found after he was extubated and he was having tachycardia and dyspnea treated with heparin drip started Coumadin 04/11, gave 10mg for two days then 5mg for two days today INR is 2.1, will give 7.5mg today recommend combination of 5mg and 7.5mg but will defer to provider at [facility] will need frequent INR checks he is not requiring any oxygen at this time Pending Studies at Discharge: No Stand-Alone Forms: My [facility] Skilled Items Patient informed of condition?: Yes Discharge Level of Care: Other Communicable Disease: No Discharge Prognosis: Stable Lines: None Urinary Catheter: No Medications and DC Order Prescriptions: New amlodipine [Norvasc] 5 mg Tablet 10 mg PO QAM 30 Days Qty: 60 RF: 0 metoprolol succinate 25 mg Tablet Extended Release 24 Hr 25 mg PO QAM 30 Days Qty: 30 RF: 0 warfarin 5 mg Tablet 5 mg PO DAILY@1600 30 Days RF: 0 Continued terbinafine HCl [Antifungal (terbinafine)] 1 % cream 1 appln TOP BID RF: 0 Discharge Orders: Discharge Order (Routine); Ordered 04/15/20 Ordered By: Mohit Jackson Admission Data Admit Date/Time: 03/29/20 14:06 Attending Provider: Mohit Jackson Admit Provider: Deep Deluca Primary Care Provider: Henrique HOLDER Other Providers: Deep Deluca ; Colin Renner Other Interventions: Discharge Summary Assessment (RN) Last Done: 04/15/20 12:31 Coding Level of Care Code D/C Day Management >30 mins Diagnoses Pulmonary embolism I26.99 Pneumonia due to 2019-nCoV U07.1; J12.89 Acute respiratory failure with hypoxia J96.01 Fever R50.9 CARSON (acute kidney injury) N17.9 Hypertension I10 Hypertension type: essential hypertension DVT prophylaxis Z29.9
[2020-04-15] MEDS ORDERED: WARFARIN SOD 7.5 MG TAB PO SCH (16:00)
== END 2020-04-15 16:19 | DRG 207 ==
LOC: ED 09:26 → SUATTDRO 14:06 → 2N 14:06 → 2E 03-31 05:08 → 3E 04-13 18:17